=== PATIENT | female | born 1990 | race Caucasian/White ===

== ENCOUNTER 2016-09-08 19:53 | Emergency (ER) | payer OTHER ==
[2016-09-08 20:16] VITALS: BP 112/56; PULSE 96; TEMP 97.8; BMI 29.2
== END 2016-09-08 23:36 | disposition left against medical advice (07) ==
LOC: JERFT 19:53 → JER 19:53
DX: Z53.21 Procedure and treatment not carried out due to patient leaving prior to being seen by health care provider (principal)
CPT/HCPCS: 99281-25

== ENCOUNTER 2016-12-04 22:12 | Emergency (ER) | payer OTHER ==
[2016-12-04 22:29] VITALS: BP 115/69; PULSE 98; TEMP 98.1; BMI 30.2
--- NOTE | 2016-12-04 22:52 | PDOC ---
History of Present Illness - General History Source: Patient Exam Limitations: No Limitations - History of Present Illness Initial Comments: 12/05/16 00:15 The patient is a 26-year-old female with a significant past medical history of HTN, diabetes, lupus, bipolar disorder, depression, anxiety, kidney stones, chronic lower back pain, and presents to the emergency department with pain from her urinary catheter s/p spine surgery. She reports she had lumbar spinal surgery for spinal stenosis 8 days ago, and they inserted a chatman catheter since she had difficulty urinating post-op. She states her chatman catheter is proving uncomfortable for her, and would like to have it removed as she is having less difficulty urinating now. She also reports she taking oxycodone for the pain. She has an appointment with a urologist next week. The patient denies chest pain, shortness of breath, headache and dizziness. The patient denies fever, chills, nausea, vomit, diarrhea and constipation. The patient denies dysuria, frequency, urgency and hematuria. Allergies: NKDA Past Surgical History: gastric bypass, i , tube ligation, two previous spine surgeries (in [place]), cholecystectomy Social History: No toxic habits reported PCP: Dr. No <Magdalena Koo - Last Filed: 12/05/16 00:15> <Benita Merrill - Last Filed: 12/05/16 00:50> - General Chief Complaint: Urinary Catheter Problem Stated Complaint: URINE PROBLEM Time Seen by Provider: 12/04/16 22:32 Past History <Magdalena Koo - Last Filed: 12/05/16 00:15> - Past Medical History Diabetes: Yes HTN: Yes Suicide Attempt (Hx): No - Surgical History Cholecystectomy: Yes GI Surgery: Yes (gastric surgery) - Immunization History Immunization Up to Date: Yes - Psycho/Social/Smoking Cessation Hx Anxiety: No Suicidal Ideation: No Smoking History: Never smoked Have you smoked in the past 12 months: No Number of Cigarettes Smoked Daily: 0 Cigars Per Day: 0 Hx Alcohol Use: No Drug/Substance Use Hx: No Substance Use Type: None <Benita Merrill - Last Filed: 12/05/16 00:50> - Past Medical History Allergies/Adverse Reactions: Allergies Allergy/AdvReac Type Severity Reaction Status Date / Time No Known Allergies Allergy Verified 12/04/16 22:25 Home Medications: Ambulatory Orders Tramadol HCl 50 mg PO DAILY 04/07/16 Lisinopril 10 mg PO DAILY 09/08/16 Metformin HCl [Glucophage] 500 mg PO BID 09/08/16 Cyclobenzaprine HCl [Flexeril 10 mg] 10 mg PO TID PRN 12/04/16 Gabapentin 300 mg PO BID 12/04/16 Oxycodone HCl/Acetaminophen [Oxycodone-Acetaminophen 10-325] 2 each PO Q4HWA PRN 12/04/16 Oxycodone HCl/Acetaminophen [Percocet 5/325 -] 1 tab PO Q6H #12 tablet MDD 4 09/17 Review of Systems - Review of Systems Able to Perform ROS?: Yes Comments:: 12/05/16 00:16 CONSTITUTIONAL: Absent: fever, chills, diaphoresis, generalized weakness, malaise, loss of appetite HEENT: Absent: rhinorrhea, nasal congestion, throat pain, throat swelling, difficulty swallowing, mouth swelling, ear pain, eye pain, visual changes CARDIOVASCULAR: Absent: chest pain, syncope, palpitations, irregular heart rate, lightheadedness , peripheral edema RESPIRATORY: Absent: cough, shortness of breath, dyspnea with exertion, orthopnea, wheezing, stridor, hemoptysis GASTROINTESTINAL: Absent: abdominal pain, abdominal distension, nausea, vomiting, diarrhea, constipation, melena, hematochezia GENITOURINARY: Present: (+) pain from urinary catheter Absent: dysuria, frequency, urgency, hesitancy, hematuria, flank pain, genital pain MUSCULOSKELETAL: Absent: myalgia, arthralgia, joint swelling SKIN: Absent: rash, itching, pallor HEMATOLOGIC/IMMUNOLOGIC: Absent: easy bleeding, easy bruising, lymphadenopathy, frequent infections ENDOCRINE: Absent: unexplained weight gain, unexplained weight loss, heat intolerance, cold intolerance NEUROLOGIC: Absent: headache, focal weakness or paresthesias, dizziness, unsteady gait, seizure, mental status changes, bladder or bowel incontinence PSYCHIATRIC: Absent: anxiety, depression, suicidal or homicidal ideation, hallucinations. <Magdalena Koo - Last Filed: 12/05/16 00:15> *Physical Exam - Vital Signs Last Vital Signs Temp Pulse Resp BP Pulse Ox 98.1 F 98 H 18 115/69 100 12/04/16 22:26 12/04/16 22:26 12/04/16 22:26 12/04/16 22:26 12/04/16 22:26 - Physical Exam Comments: 12/05/16 00:16 GENERAL: Well developed, well nourished. Awake and alert. No acute distress. Afebrile. HEENT: Normocephalic, atraumatic. PERRLA, EOMI. No conjunctival pallor. Sclera are non- icteric. Moist mucous membranes. Oropharynx is clear. NECK: Supple. Full ROM. No JVD. Carotid pulses 2+ and symmetric, without bruits. No thyromegaly. No lymphadenopathy. CARDIOVASCULAR: Regular rate and rhythm. No murmurs, rubs, or gallops. Distal pulses are 2+ and symmetric. PULMONARY: No evidence of respiratory distress. Lungs clear to auscultation bilaterally. No wheezing, rales or rhonchi. ABDOMINAL: (+) Anterior abdominal surgical scar, well healing. Soft. Non-tender. Non- distended. No rebound or guarding. No organomegaly. Normoactive bowel sounds. MUSCULOSKELETAL (+) Two low back paraspinal surgical scars, well healing. Normal range of motion at all joints. No bony deformities or tenderness. No CVA tenderness. GENITOURINARY: (+) Indwelling catheter, clear urine, no dysuria. EXTREMITIES: No cyanosis. No clubbing. No pitting edema. No calf tenderness. SKIN: Warm and dry. Normal capillary refill. No rashes. No jaundice. NEUROLOGICAL: Alert, awake, appropriate. Cranial nerves 2-12 intact. No deficits to light touch and temperature in face, upper extremities and lower extremities. No motor deficits in the in face, upper extremities and lower extremities. Normoreflexic in the upper and lower extremities. Normal speech. Toes are down- going bilaterally. PSYCHIATRIC: Cooperative. Good eye contact. Appropriate mood and affect. <Magdalena Koo - Last Filed: 12/05/16 00:15> - Vital Signs Last Vital Signs Temp Pulse Resp BP Pulse Ox 98.1 F 98 H 18 115/69 100 12/04/16 22:26 12/04/16 22:26 12/04/16 22:26 12/04/16 22:26 12/04/16 22:26 <Benita Merrill - Last Filed: 12/05/16 00:50> ED Treatment Course - Medications Given in the ED: ED Medications Discontinued Medications Generic Name Dose Route Start Last Admin Trade Name Rivera PRN Reason Stop Dose Admin Oxycodone/Acetaminophen 2 combo 12/04/16 23:34 12/04/16 23:37 Percocet 5/325 - PO 12/04/16 23:35 2 combo ONCE ONE Administration <Magdalena Koo - Last Filed: 12/05/16 00:15> Medical Decision Making - Medical Decision Making 12/05/16 00:48 Pt comes with pain post-surgery; she ran out of percocets. All scars are well healing. She also comes to remove her chatman catheter, as it is making her sore. She has no dysuria, and no fever or suprapubic pain ad Urine in the bag appears clear. Pt will follow with urology as scheduled on coming. Pt is stable for discharge. Exam is normal. <Benita Merrill - Last Filed: 12/05/16 00:50> *DC/Admit/Observation/Transfer - Attestations Scribe Attestion: 12/05/16 00:16 Documentation prepared by Magdalena Koo, acting as medical planner for Benita Merrill MD. <Magdalena Koo - Last Filed: 12/05/16 00:15> - Discharge Dispostion Admit: No <Benita Merrill - Last Filed: 12/05/16 00:50> Diagnosis at time of Disposition: Chronic back pain, Chatman catheter status - Discharge Dispostion Disposition: HOME Condition at time of disposition: Stable - Prescriptions Prescriptions: Oxycodone HCl/Acetaminophen [Percocet 5/325 -] 1 tab PO Q6H #12 tablet MDD 4 - Patient Instructions Printed Discharge Instructions: Low Back Pain
[2016-12-04] MEDS ORDERED: OXYCODONE/APAP 5/325MG COMBO TABLET PO ONE (23:34)
[2016-12-04] MEDS ORDERED: OXYCODONE/APAP 5/325MG COMBO TABLET ONE (23:39)
== END 2016-12-04 23:55 | disposition home or self-care (01) ==
LOC: JER 22:12
DX: T83.84XA Pain due to genitourinary prosthetic devices, implants and grafts, initial encounter (principal); Y84.6 Urinary catheterization as the cause of abnormal reaction of the patient, or of later complication, without mention of misadventure at the time of the procedure; Y92.038 Other place in apartment as the place of occurrence of the external cause; Z98.890 Other specified postprocedural states; E11.9 Type 2 diabetes mellitus without complications; F31.9 Bipolar disorder, unspecified
CPT/HCPCS: 99282-25

== ENCOUNTER 2017-02-24 18:34 | Emergency (ER) | payer OTHER ==
[2017-02-24 18:52] VITALS: BP 134/91; PULSE 84; TEMP 99; BMI 30.2
[2017-02-24 19:38] LABS: MCH 27.6 pg (25.7-33.7); MCHC 32.2 g/dl (32.0-36.0); MEAN CELL VOLUME 85.9 fl (80-96); MEAN PLT VOLUME 7.4 fl (7.5-11.1); PLATELET COUNT 360 K/MM3 (134-434); RDW 16.3 % (11.6-15.6); WHITE BLOOD COUNT 6.8 K/mm3 (4.0-10.0)
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
--- NOTE | 2017-02-24 19:47 | PDOC ---
Attending Attestation - HPI HPI: 02/24/17 19:51 26 yo female with hx of diabetes and hypertension who presents to the emergency department s/p witnessed seizure. Presents with cousin who provided additional history who witnessed a general tonic clonic seizure lasting approximately 1 minute followed by a period of confusion. No prior hx of seizures, drug use. No recent headaches No fever, chills, nausea, vomiting. <Ida Hermosillo - Last Filed: 02/24/17 19:50> - Resident Resident Name: Andrew Carpenter - ED Attending Attestation I have performed the following: I have examined & evaluated the patient, The case was reviewed & discussed with the resident, I agree w/resident's findings & plan, Exceptions are as noted - HPI HPI: 02/25/17 02:03 26 yo F with h/o DM HTN here with new onset seizure. lasted 1 min ,witnessed by cousin. no h/o trauma no /c no other complaints. had postictal period. now at baseline. - Physicial Exam PE: 02/25/17 02:02 awake alert lungs clear heart rrr no mrg abd soft nt nd. ext wwp nuero alert oriented x 3. 5/5 all four ext. CN intact. - Medical Decision Making 02/24/17 19:44 26 yo F with h/o DM HTN here with c/o seizure at home, witnessed by cousin. pt denies trauma no prater no n/v no f/c no drugs. has been compliant with medication. differential: tox, mass, hypoglycemia, electrolyte imbalance, plan ct head. labs cxr ua [facility] drug screen. while in ED pt had witnessed seizure lasting 45 seconds, given ativan 2mg. generalized shakingl. no incontinence. labs and ct pending. <Kika Castillo - Last Filed: 02/25/17 02:04>
[2017-02-24] MEDS ORDERED: SODIUM CHLORIDE 1,000 ML IV STA (19:53)
[2017-02-24 20:12] LABS: ANION GAP 6 (8-16); BILIRUBIN,TOTAL 0.3 mg/dL (0.2-1.0); CALCIUM 8.7 mg/dL (8.5-10.1); CO2 28 mmol/L (21-32); CREATININE 0.7 mg/dL (0.55-1.02); GLUCOSE,RANDOM 74 mg/dL (74-106); SGOT/AST 33 U/L (15-37); SGPT/ALT 44 U/L (12-78); TOT PROT 7.5 g/dl (6.4-8.2)
[2017-02-24 20:14] LABS: ALK PHOS 72 U/L (45-117); CPK 152 IU/L (26-192); TROPONIN I < 0.02 ng/ml (0.00-0.05)
--- NOTE | 2017-02-25 12:26 | EKG ---
Test Reason : Blood Pressure : / mmHG Vent. Rate : 099 BPM Atrial Rate : 099 BPM P-R Int : 130 ms QRS Dur : 084 ms QT Int : 370 ms P-R-T Axes : 037 052 031 degrees QTc Int : 474 ms NORMAL SINUS RHYTHM NORMAL ECG NO PREVIOUS ECGS AVAILABLE Confirmed by MD ROSE, BRIT ([id number]) on 02/25/2017 12:26:04 PM Referred By: Confirmed By:BRIT ROSE MD
== END 2017-02-25 02:48 | disposition home or self-care (01) ==
LOC: JER 18:34
PROC: 0T9B70Z Drainage of Bladder with Drainage Device, Via Natural or Artificial Opening (ICD-10-PCS; principal; 2017-02-24)
PROC: 3E033NZ Introduction of Analgesics, Hypnotics, Sedatives into Peripheral Vein, Percutaneous Approach (ICD-10-PCS; 2017-02-24)
PROC: 3E0337Z Introduction of Electrolytic and Water Balance Substance into Peripheral Vein, Percutaneous Approach (ICD-10-PCS; 2017-02-24)
DX: R33.9 Retention of urine, unspecified (principal); E11.9 Type 2 diabetes mellitus without complications; I10 Essential (primary) hypertension
CPT/HCPCS: 36415; 70450-TC; 71010-TC; 72131-TC; 74176-TC; 80053; 82553; 83605; 84484; 84703; 85027; 93005; 93010; 99284-25

== ENCOUNTER 2017-02-26 02:00 | Emergency (ER) | payer OTHER ==
--- NOTE | 2017-02-26 02:46 | PDOC ---
Medical Decision Making - Medical Decision Making 02/26/17 02:46 Pt seen by the Advanced Practice Provider under my direct supervision Ancillary studies reviewed I agree with plan as outlined by the Advanced Practice Provider FITZ Hill *DC/Admit/Observation/Transfer Diagnosis at time of Disposition: UTI (urinary tract infection) - Discharge Dispostion Disposition: HOME Condition at time of disposition: Stable - Prescriptions Prescriptions: Nitrofurantoin Monohyd/M-Cryst [Macrobid -] 100 mg PO BID #14 capsule - Referrals Referrals: López Fortune MD [Staff Physician] - Akhil Higginbotham MD [Primary Care Provider] - - Patient Instructions Printed Discharge Instructions: DI for Urinary Tract Infection (UTI) Additional Instructions: Increase fluids Rx: Macrobid 100mg take 1 tablet by mouth twice a day Follow up with the urologist to removew the chatman catheter Return to the ER for severe/persistent/worsening symptoms
[2017-02-26 02:49] LABS: URINE APPEARANCE CLOUDY; URINE BILIRUBIN NEGATIVE (NEGATIVE); URINE BLOOD 3+ (NEGATIVE); URINE COLOR DKYELLOW; URINE GLUCOSE (UA) NEGATIVE (NEGATIVE); URINE KETONE NEGATIVE (NEGATIVE); URINE NITRITE NEGATIVE (NEGATIVE)
--- NOTE | 2017-02-26 02:57 | PDOC ---
History of Present Illness - General Stated Complaint: VELAZQUEZ PROBLEM Time Seen by Provider: 02/26/17 02:18 History Source: Patient Exam Limitations: No Limitations - History of Present Illness Travel History: No Initial Comments: 02/26/17 02:52 26-year-old female with a history of epilepsy presents to the emergency department complaining of hematuria in her leg Velazquez bag. Patient was seen in the emergency department yesterday for urinary retention and was discharged home with a leg bag. Patient denies any urinary sensations or symptoms but did notice hematuria without flank pains, fever/chills, nausea/vomiting, abdominal discomfort. LMP 02/03/2017 Timing/Duration: reports: intermittent Abdominal Pain Onset Location: reports: suprapubic Past History - Past Medical History Allergies/Adverse Reactions: Allergies Allergy/AdvReac Type Severity Reaction Status Date / Time No Known Allergies Allergy Verified 02/24/17 18:51 Home Medications: Ambulatory Orders Tramadol HCl 50 mg PO DAILY 04/07/16 Cyclobenzaprine HCl [Flexeril 10 mg] 10 mg PO TID PRN 12/04/16 Bupropion HCl [Wellbutrin Xl] 300 mg PO DAILY 02/24/17 Esomeprazole Magnesium [Nexium 24Hr] 40 mg PO DAILY 02/24/17 Fluoxetine HCl [Prozac] 50 mg PO DAILY 02/24/17 Folic Acid 1 mg PO DAILY 02/24/17 Nitrofurantoin Monohyd/M-Cryst [Macrobid -] 100 mg PO BID #14 capsule 02/26/17 Diabetes: Yes HTN: Yes Suicide Attempt (Hx): No Seizures: Yes - Surgical History Abdominal Surgery: Yes Cholecystectomy: Yes GI Surgery: Yes (gastric surgery) - Immunization History Immunization Up to Date: Yes - Psycho/Social/Smoking Cessation Hx Anxiety: No Suicidal Ideation: No Smoking History: Never smoked Have you smoked in the past 12 months: No Number of Cigarettes Smoked Daily: 0 Cigars Per Day: 0 Hx Alcohol Use: No Drug/Substance Use Hx: No Substance Use Type: None Review of Systems - Review of Systems Able to Perform ROS?: Yes Comments:: 02/26/17 02:52 CONSTITUTIONAL: Absent: fever, chills, diaphoresis, generalized weakness, malaise, loss of appetite CARDIOVASCULAR: Absent: chest pain, loss of consciousness, palpitations, irregular heart rate, peripheral edema RESPIRATORY: Absent: cough, shortness of breath, dyspnea with exertion, orthopnea, wheezing, stridor, hemoptysis GASTROINTESTINAL: Absent: abdominal pain, abdominal distension, nausea, vomiting, diarrhea, constipation, melena, hematochezia GENITOURINARY: +hematuria/velazquez Absent: dysuria, frequency, urgency, hesitancy, flank pain, genital pain SKIN: Absent: rash, itching, pallor Is the patient limited Greenlandic proficient: No *Physical Exam - Physical Exam Comments: 02/26/17 02:52 GENERAL: Well developed, well nourished. Awake and alert. No acute distress. HEENT: Normocephalic, atraumatic. PERRLA, EOMI. No conjunctival pallor. Sclera are non- icteric. Moist mucous membranes. Oropharynx is clear. NECK: Supple. Full ROM. No JVD. Carotid pulses 2+ and symmetric, without bruits. No thyromegaly. No lymphadenopathy. CARDIOVASCULAR: Regular rate and rhythm. No murmurs, rubs, or gallops. Distal pulses are 2+ and symmetric. PULMONARY: No evidence of respiratory distress. Lungs clear to auscultation bilaterally. No wheezing, rales or rhonchi. ABDOMINAL: Soft. Non-tender. Non-distended. No rebound or guarding. No organomegaly. Normoactive bowel sounds. MUSCULOSKELETAL Normal range of motion at all joints. No bony deformities or tenderness. No CVA tenderness. EXTREMITIES: No cyanosis. No clubbing. No edema. No calf tenderness. SKIN: Warm and dry. Normal capillary refill. No rashes. No jaundice. NEUROLOGICAL: Alert, awake, appropriate. Cranial nerves 2-12 intact. No deficits to light touch and temperature in face, upper extremities and lower extremities. No motor deficits in the in face, upper extremities and lower extremities. Normoreflexic in the upper and lower extremities. Normal speech. Toes are down- going bilaterally. Gait is normal without ataxia. PSYCHIATRIC: Cooperative. Good eye contact. Appropriate mood and affect. 02/26/17 02:54 ED Treatment Course - ADDITIONAL ORDERS Additional order review: Laboratory Results 02/26/17 02:30 Urine HCG, Qual Negative *DC/Admit/Observation/Transfer Diagnosis at time of Disposition: Urinary tract infection Qualifiers: Urinary tract infection type: acute cystitis Hematuria presence: with hematuria Qualified Code(s): N30.01 - Acute cystitis with hematuria - Discharge Dispostion Disposition: HOME Condition at time of disposition: Stable Admit: No - Prescriptions Prescriptions: Nitrofurantoin Monohyd/M-Cryst [Macrobid -] 100 mg PO BID #14 capsule - Referrals Referrals: Akhil Higginbotham MD [Primary Care Provider] - López Fortune MD [Staff Physician] - - Patient Instructions Printed Discharge Instructions: DI for Urinary Tract Infection (UTI) Additional Instructions: Increase fluids Rx: Macrobid 100mg take 1 tablet by mouth twice a day Follow up with the urologist to removew the velazquez catheter Return to the ER for severe/persistent/worsening symptoms
[2017-02-26 03:04] LABS: URINE LEUK ESTERASE 1+ (NEGATIVE); URINE PROTEIN 2+ (NEGATIVE)
[2017-02-26 03:08] LABS: CALCIUM OXALATE CRYSTALS RARE /hpf (NONE SEEN); URINE BACTERIA RARE /hpf (NONE SEEN); URINE HYALINE CAST 3 /lpf; URINE MUCUS MANY; URINE RBC 1207 /hpf (0-3); URINE WBC 38 /hpf (3-5)
[2017-02-26 03:11] VITALS: BP 104/67; PULSE 62; TEMP 97.4; BMI 30.2
[2017-02-26] MEDS ORDERED: NITROFURANTOIN MACROCRYSTAL 50 MG CAPSULE (FP) PO SCH (03:15)
[2017-02-26] MEDS ORDERED: NITROFURANTOIN MACROCRYSTAL 50 MG CAPSULE (FP) ONE ×2 (03:22→03:23)
== END 2017-02-26 03:30 | disposition home or self-care (01) ==
LOC: JER 02:00
DX: N30.01 Acute cystitis with hematuria (principal)
CPT/HCPCS: 81003; 81015; 84703; 87086; 87186; 99282-25

== ENCOUNTER 2017-04-11 22:13 | Emergency (ER) | payer OTHER ==
[2017-04-11 22:39] VITALS: BP 131/63; PULSE 77; TEMP 98; BMI 31.6
--- NOTE | 2017-04-11 23:08 | PDOC ---
Attending Attestation - Resident Resident Name: Timo Starkey - ED Attending Attestation I have performed the following: I have examined & evaluated the patient, The case was reviewed & discussed with the resident, I agree w/resident's findings & plan, Exceptions are as noted - HPI HPI: 04/12/17 01:36 26 yo female with right sided cva tenderness - Physicial Exam PE: 04/12/17 01:36 wnwd 26 yo female with right sided cva tenderness HEENT wnl lungs cta b/l cvs [id number] abd soft no rebound no guarding right flank pain extremities wnl neuro ambulatory,no gross focal deficits - Medical Decision Making 04/12/17 01:38 IMP diff included uti,kidney stones
[2017-04-11] MEDS ORDERED: KETOROLAC TROMETHAMINE 30 MG/1 ML VIAL IVPUSH ONE (23:27)
--- NOTE | 2017-04-11 23:27 | PDOC ---
History of Present Illness - General Chief Complaint: Pain Stated Complaint: PAIN, ACUTE Time Seen by Provider: 04/11/17 22:59 - History of Present Illness Initial Comments: 04/11/17 23:16 The patient is a 26 year old female with a history of seizures and urinary retention who presents for evaluation of lower right back pain. The patient reports sudden onset of severe pain earlier today prompting her presentation to the ED today. She denies any pain or burning on urination and states that she has experienced this pain in the past. She denies fevers, chills, SOB, chest pain, or abdominal pain. Past History - Past Medical History Allergies/Adverse Reactions: Allergies Allergy/AdvReac Type Severity Reaction Status Date / Time No Known Allergies Allergy Verified 04/11/17 22:33 Home Medications: Ambulatory Orders Tramadol HCl 50 mg PO DAILY 04/07/16 Cyclobenzaprine HCl [Flexeril 10 mg] 10 mg PO TID PRN 12/04/16 Bupropion HCl [Wellbutrin Xl] 300 mg PO DAILY 02/24/17 Esomeprazole Magnesium [Nexium 24Hr] 40 mg PO DAILY 02/24/17 Fluoxetine HCl [Prozac] 50 mg PO DAILY 02/24/17 Folic Acid 1 mg PO DAILY 02/24/17 Nitrofurantoin Monohyd/M-Cryst [Macrobid -] 100 mg PO BID #14 capsule 02/26/17 Tamsulosin HCl [Flomax] 0.4 mg PO DAILY #7 cap.er.24h 04/12/17 Diabetes: Yes HTN: Yes Seizures: Yes Other medical history: lupus - Surgical History Abdominal Surgery: Yes Cholecystectomy: Yes GI Surgery: Yes (gastric surgery) - Immunization History Immunization Up to Date: Yes - Suicide/Smoking/Psychosocial Hx Smoking History: Never smoked Have you smoked in the past 12 months: No Number of Cigarettes Smoked Daily: 0 Cigars Per Day: 0 Information on smoking cessation initiated: No Hx Alcohol Use: No Drug/Substance Use Hx: No Substance Use Type: None Review of Systems - Review of Systems Comments:: 04/11/17 23:17 Constitutional: No fevers, chills, fatigue, malaise HEENT: No Rhinorrhea, nasal congestion, Cardiovascular: No chest pain, syncope, palpitations, lightheadedness Respiratory: No Cough, SOB, Gastrointestinal: No Abdominal pain, Nausea, Vomiting, Constipation, Diarrhea, Genitourinary: Right flank pain. No Dysuria, Frequency, Urgency, Hesitancy, Hematuria, Musculoskeletal: No Myalgia, arthralgia Skin: No rashes, bruising, pallor Neurologic: No Headache, Dizziness, Numbness, Weakness, or Tingling *Physical Exam - Vital Signs Last Vital Signs Temp Pulse Resp BP Pulse Ox 98.0 F 77 18 131/63 100 04/11/17 22:29 04/11/17 22:29 04/11/17 22:29 04/11/17 22:29 04/11/17 22:29 - Physical Exam Comments: 04/11/17 23:18 General Appearance: Nourished. No Apparent Distress HEENT: EOMI, JJ. No Pharyngeal Erythema, Tonsillar Exudate, Tonsillar Erythema Neck: No Cervical Lymphadenopathy Respiratory/Chest: Lungs Clear, Normal Breath Sounds. No Crackles, Rales, Rhonchi, Wheezing Cardiovascular: Regular Rhythm, Regular Rate. No Murmur, Gallops, Rubs Gastrointestinal/Abdominal: Normal Bowel Sounds, Soft. No Guarding, Rebound, Tenderness Musculoskeletal: Right sided CVA tenderness. No Left CVA tenderness. Extremity: Normal Capillary Refill Integumentary: Normal Color, Dry, Warm Neurologic: Fully Oriented, Alert, Normal Mood/Affect, Normal Response, ED Treatment Course - LABORATORY CBC & Chemistry Diagram: 04/11/17 23:45 04/11/17 23:45 Medical Decision Making - Medical Decision Making 04/11/17 23:20 The patient is a 26 year old female with a history of seizures and urinary retention who presents for evaluation of lower left back pain. Differential includes but is not limit to: Nephrolethiasis, UTI, Pylonephritis, metabolic derangement, musculoskeletal. Patient does have a history of kidney stones and given the sudden onset of her symptoms as well as her physical exam with cva tenderness on the right, she likely has nephrolethiasis. We will send a cbc, cmp, ua and urine preg to evaluate. We will continue to monitor and reassess. *DC/Admit/Observation/Transfer Diagnosis at time of Disposition: Kidney calculi - Discharge Dispostion Disposition: HOME Condition at time of disposition: Stable - Prescriptions Prescriptions: Tamsulosin HCl [Flomax] 0.4 mg PO DAILY #7 cap.er.24h - Referrals Referrals: Akhil Higginbotham MD [Primary Care Provider] - Lee Prakash MD [Staff Physician] - - Patient Instructions Printed Discharge Instructions: DI for Kidney Stones Additional Instructions: Please follow up with your primary care provider and urologist within 1 week. A referral has been provided for you. Take flomax as prescribed If you have chest pain, shortness of breath, or any new/worsening symptoms please come back to the hospital immediately. Print Language: JAPANESE
[2017-04-11] MEDS ORDERED: KETOROLAC TROMETHAMINE 60 MG/2 ML VIAL ONE (23:42)
--- NOTE | 2017-04-11 23:56 | PDOC ---
*Physical Exam - Vital Signs Last Vital Signs Temp Pulse Resp BP Pulse Ox 98.0 F 77 18 131/63 100 04/11/17 22:29 04/11/17 22:29 04/11/17 22:29 04/11/17 22:29 04/11/17 22:29 ED Treatment Course - LABORATORY CBC & Chemistry Diagram: 04/11/17 23:45 04/11/17 23:45 Medical Decision Making - Medical Decision Making 04/11/17 23:54 26 y.o. F hx of nephrolithiasis, urinary retention, and seizures presenting with right lower back pain. Pending labs, UA. Depending on UA, will determine whether she needs CT. Care taken over from Dr. Starkey 04/12/17 00:53 UA- 2+ blood, 14 WBC 04/12/17 03:35 Renal u/s no evidence of hydronephrosis. Patient stable for d/c with follow up with Urology. *DC/Admit/Observation/Transfer Diagnosis at time of Disposition: Kidney calculi - Discharge Dispostion Disposition: HOME Condition at time of disposition: Stable - Referrals Referrals: Akhil Higginbotham MD [Primary Care Provider] - Lee Prakash MD [Staff Physician] - - Patient Instructions Printed Discharge Instructions: DI for Kidney Stones Additional Instructions: Please follow up with your primary care provider and urologist within 1 week. A referral has been provided for you. Take flomax as prescribed If you have chest pain, shortness of breath, or any new/worsening symptoms please come back to the hospital immediately.
[2017-04-11 23:58] LABS: URINE APPEARANCE SLCLOUDY; URINE BILIRUBIN NEGATIVE (NEGATIVE); URINE BLOOD 2+ (NEGATIVE); URINE COLOR YELLOW; URINE GLUCOSE (UA) NEGATIVE (NEGATIVE); URINE KETONE TRACE (NEGATIVE); URINE NITRITE NEGATIVE (NEGATIVE); URINE UROBILINOGEN NEGATIVE mg/dL (0.2-1.0)
[2017-04-12 00:08] LABS: URINE PROTEIN 1+ (NEGATIVE)
[2017-04-12 00:17] LABS: URINE MUCUS MANY; URINE RBC 264 /hpf (0-3); URINE WBC 14 /hpf (3-5)
[2017-04-12 00:22] LABS: BASOPHIL 0.4 % (0-2.0); EOSINOPHIL 0.9 % (0-4.5); MCH 27.9 pg (25.7-33.7); MCHC 32.5 g/dl (32.0-36.0); MEAN CELL VOLUME 85.9 fl (80-96); MEAN PLT VOLUME 7.4 fl (7.5-11.1); NEUTROPHILS 45.9 % (42.8-82.8); PLATELET COUNT 363 K/MM3 (134-434); RDW 15.3 % (11.6-15.6)
[2017-04-12 00:46] LABS: ALBUMIN 3.8 g/dl (3.4-5.0); ANION GAP 8 (8-16); BILIRUBIN,TOTAL 0.2 mg/dL (0.2-1.0); CALCIUM 9.1 mg/dL (8.5-10.1); CO2 27 mmol/L (21-32); CREATININE 0.5 mg/dL (0.55-1.02); GLUCOSE,RANDOM 89 mg/dL (74-106); SGOT/AST 17 U/L (15-37); SGPT/ALT 25 U/L (12-78); TOT PROT 7.6 g/dl (6.4-8.2)
[2017-04-12 00:47] LABS: ALK PHOS 71 U/L (45-117)
[2017-04-12] MEDS ORDERED: SODIUM CHLORIDE 1,000 ML IV STA (01:31)
[2017-04-12] MEDS ORDERED: morphine CARPU-JECT 2 MG/1 ML DISP.SYRIN IVPUSH ONE (01:31)
[2017-04-12] MEDS ORDERED: morphine CARPU-JECT 10 MG/1 ML DISP.SYRIN ONE (02:18)
[2017-04-12 09:02] LABS: URINE LEUK ESTERASE Negative (NEGATIVE)
== END 2017-04-12 04:20 | disposition home or self-care (01) ==
LOC: JER 22:13
PROC: 3E0333Z Introduction of Anti-inflammatory into Peripheral Vein, Percutaneous Approach (ICD-10-PCS; principal; 2017-04-11)
PROC: 3E033NZ Introduction of Analgesics, Hypnotics, Sedatives into Peripheral Vein, Percutaneous Approach (ICD-10-PCS; 2017-04-11)
PROC: 3E0337Z Introduction of Electrolytic and Water Balance Substance into Peripheral Vein, Percutaneous Approach (ICD-10-PCS; 2017-04-11)
DX: N20.0 Calculus of kidney (principal); Z98.84 Bariatric surgery status; I10 Essential (primary) hypertension; L93.0 Discoid lupus erythematosus
CPT/HCPCS: 36415; 76775-TC; 80053; 81003; 81015; 84703; 85025; 99283-25

== ENCOUNTER 2017-06-29 01:26 | Emergency (ER) | payer OTHER ==
[2017-06-29 01:42] VITALS: BP 132/84; PULSE 77; TEMP 98.2; BMI 31.8
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
== END 2017-06-29 04:46 | disposition home or self-care (01) ==
LOC: JER 01:26
DX: M54.42 Lumbago with sciatica, left side (principal); G89.29 Other chronic pain; V89.2XXS Person injured in unspecified motor-vehicle accident, traffic, sequela
CPT/HCPCS: 99282-25

== ENCOUNTER 2017-08-05 00:49 | Inpatient (IN) | payer OTHER ==
[2017-08-05] MEDS ORDERED: HYDROmorphone HCL CARPU-JECT 1 MG/1 ML DISP.SYRIN IVPB ONE ×2 (01:39→03:01)
[2017-08-05] MEDS ORDERED: HYDROmorphone HCL CARPU-JECT 2 MG/1 ML DISP.SYRIN ONE ×2 (02:16→03:08)
[2017-08-05 02:33] LABS: BASO % 0.6 % (0-2.0); EOS % 0.9 % (0-4.5); HEMATOCRIT 31.1 % (32.4-45.2); LYMPH % 31.8 % (8-40); MCH 25.4 pg (25.7-33.7); MCHC 32.2 g/dl (32.0-36.0); MEAN CELL VOLUME 78.8 fl (80-96); MEAN PLT VOLUME 7.3 fl (7.5-11.1); MONO % 7.3 % (3.8-10.2); NEUT % 59.4 % (42.8-82.8); PLATELET COUNT 457 K/MM3 (134-434); RBC 3.94 M/mm3 (3.60-5.2); RDW 15.9 % (11.6-15.6); WHITE BLOOD COUNT 9.7 K/mm3 (4.0-10.0)
[2017-08-05 03:11] LABS: ALBUMIN 3.6 g/dl (3.4-5.0); ALK PHOS 74 U/L (45-117); ANION GAP 7 (8-16); BILIRUBIN,TOTAL 0.2 mg/dL (0.2-1.0); BLOOD UREA NITROGEN 18 mg/dL (7-18); CALCIUM 8.7 mg/dL (8.5-10.1); CHLORIDE 103 mmol/L (98-107); CO2 28 mmol/L (21-32); CREATININE 0.6 mg/dL (0.55-1.02); GLUCOSE,RANDOM 97 mg/dL (74-106); POTASSIUM 4.3 mmol/L (3.5-5.1); SGOT/AST 19 U/L (15-37); SGPT/ALT 31 U/L (12-78); SODIUM 138 mmol/L (136-145); TOT PROT 7.7 g/dl (6.4-8.2)
--- NOTE | 2017-08-05 05:06 | PDOC ---
History of Present Illness - History of Present Illness Initial Comments: 08/05/17 05:23 The patient is a 27 year old female, with a significant past medical history of herniated disks, who presents to the emergency department with, progressively worsening lower back pain and left leg numbness for approx. two days. The patient reports the lower back pain is made worse with movement. The patient reports she has had intermittent left leg numbness in the past. However, the left leg numbness has now been constant for the past two days. The patient reports one episode of stool incontinence yesterday. She denies recent fevers, chills, headache or dizziness. She denies recent nausea, vomit, diarrhea or constipation. She denies recent dysuria, frequency, urgency or hematuria. She denies recent chest pain or shortness of breath. Allergies: NKA Past surgical history: 3 lumbar surgeries and fusions. Social history: Nonsmoker. Denies EtOH use and recreational drug use. <Kemal German - Last Filed: 08/05/17 05:34> <Fuentes Trivedi - Last Filed: 08/05/17 10:27> - General History Source: Patient Exam Limitations: No Limitations <Devan Aquino - Last Filed: 08/11/17 18:45> - General Chief Complaint: Back Pain Stated Complaint: BACK PAIN Time Seen by Provider: 08/05/17 01:19 Past History <Kemal German - Last Filed: 08/05/17 05:34> <Fuentes Trivedi - Last Filed: 08/05/17 10:27> - Past Medical History COPD: No Diabetes: Yes HTN: Yes Seizures: Yes - Surgical History Abdominal Surgery: Yes Cholecystectomy: Yes GI Surgery: Yes (gastric surgery) - Immunization History Immunization Up to Date: Yes - Suicide/Smoking/Psychosocial Hx Smoking History: Never smoked Have you smoked in the past 12 months: No Number of Cigarettes Smoked Daily: 0 Cigars Per Day: 0 Information on smoking cessation initiated: No Hx Alcohol Use: No Drug/Substance Use Hx: No Substance Use Type: None <Devan Aquino - Last Filed: 08/11/17 18:45> - Past Medical History Allergies/Adverse Reactions: Allergies Allergy/AdvReac Type Severity Reaction Status Date / Time No Known Allergies Allergy Verified 08/05/17 01:12 Home Medications: Ambulatory Orders Tramadol HCl 50 mg PO DAILY 04/07/16 Esomeprazole Magnesium [Nexium 24Hr] 40 mg PO DAILY 02/24/17 Fluoxetine HCl [Prozac] 50 mg PO DAILY 02/24/17 Folic Acid 1 mg PO DAILY 02/24/17 Oxycodone HCl/Acetaminophen [Percocet 5-325 mg Tablet] 1 - 2 tab PO Q6H #20 tablet MDD 4 06/29/17 Aripiprazole [Abilify] 10 mg PO HS 08/05/17 Gabapentin 300 mg PO DAILY 08/05/17 Zolpidem Tartrate [Ambien] 10 mg PO HS 08/05/17 Hydrocodone/Acetaminophen [Hydrocodone-Acetamin 5-325 mg] 1 each PO DAILY #18 tablet MDD 20mg 08/07/17 Oxycodone HCl/Acetaminophen [Percocet 5-325 mg Tablet] 1 - 2 tab PO Q6H #18 tab MDD 4 08/08/17 Review of Systems - Review of Systems Comments:: 08/05/17 05:24 GENERAL/CONSTITUTIONAL: No fever or chills. No weakness. HEAD, EYES, EARS, NOSE AND THROAT: No change in vision. No ear pain or discharge. No sore throat. CARDIOVASCULAR: No chest pain or shortness of breath. RESPIRATORY: No cough, wheezing, or hemoptysis. GASTROINTESTINAL: No nausea, vomiting, diarrhea or constipation. GENITOURINARY: No dysuria, frequency, or change in urination. MUSCULOSKELETAL: +Lower back pain. No joint or muscle swelling or pain. SKIN: No rash NEUROLOGIC: +Left leg numbness. No headache, vertigo, loss of consciousness. ENDOCRINE: No increased thirst. No abnormal weight change. HEMATOLOGIC/LYMPHATIC: No anemia, easy bleeding, or history of blood clots. ALLERGIC/IMMUNOLOGIC: No hives or skin allergy. <Kemal German - Last Filed: 08/05/17 05:34> *Physical Exam - Vital Signs Last Vital Signs Temp Pulse Resp BP Pulse Ox 98.5 F 87 20 126/76 99 08/05/17 00:55 08/05/17 00:55 08/05/17 00:55 08/05/17 00:55 08/05/17 00:55 - Physical Exam Comments: 08/05/17 05:25 GENERAL: Awake, alert, and fully oriented, in no acute distress HEAD: No signs of trauma EYES: PERRLA, EOMI, sclera anicteric, conjunctiva clear ENT: Auricles normal inspection, hearing grossly normal, nares patent, oropharynx clear without exudates. Moist mucosa NECK: Normal ROM, supple, no lymphadenopathy, JVD, or masses LUNGS: Breath sounds equal, clear to auscultation bilaterally. No wheezes, and no crackles HEART: Regular rate and rhythm, normal S1 and S2, no murmurs, rubs or gallops ABDOMEN: Soft, nontender, normoactive bowel sounds. No guarding, no rebound. No masses BACK: +Surgical scar lumbar spine. +Tenderness to L5-S1. EXTREMITIES: +Straight leg raise at 30 degrees left side. No edema. No clubbing or cyanosis. No cords, erythema, or tenderness NEUROLOGICAL: +Subjective decrease sensation diffusely left lower extremity compared to right. ?Saddle anesthesia left side but normal rectal tone. Cranial nerves II through XII grossly intact. Normal speech, normal gait SKIN: Warm, Dry, normal turgor, no rashes or lesions noted. <Kemal German - Last Filed: 08/05/17 05:34> - Vital Signs Last Vital Signs Temp Pulse Resp BP Pulse Ox 98.1 F 73 20 106/59 98 08/05/17 07:08 08/05/17 07:08 08/05/17 00:55 08/05/17 07:08 08/05/17 07:08 <Fuentes Trivedi - Last Filed: 08/05/17 10:27> - Vital Signs Last Vital Signs Temp Pulse Resp BP Pulse Ox 98.5 F 87 20 126/76 99 08/05/17 00:55 08/05/17 00:55 08/05/17 00:55 08/05/17 00:55 08/05/17 00:55 <Devan Aqunio - Last Filed: 08/11/17 18:45> ED Treatment Course - LABORATORY CBC & Chemistry Diagram: 08/05/17 02:10 08/05/17 02:10 - ADDITIONAL ORDERS Additional order review: Laboratory Results 08/05/17 08/05/17 02:10 02:10 Sodium 138 Potassium 4.3 Chloride 103 Carbon Dioxide 28 Anion Gap 7 L BUN 18 Creatinine 0.6 Creat Clearance w eGFR > 60 Random Glucose 97 Calcium 8.7 Total Bilirubin 0.2 AST 19 ALT 31 Alkaline Phosphatase 74 Total Protein 7.7 Albumin 3.6 Serum , Qual Negative 08/05/17 02:10 RBC 3.94 MCV 78.8 L MCHC 32.2 RDW 15.9 H MPV 7.3 L Neutrophils % 59.4 D Lymphocytes % 31.8 D Monocytes % 7.3 Eosinophils % 0.9 Basophils % 0.6 - RADIOLOGY Radiograph Interpretation: 08/05/17 05:11 EXAM: LUMBAR SPINE CT W/O CONTRAST HISTORY: Pain COMPARISON: None. FINDINGS: CT lumbar spine demonstrates intervertebral disc spacing devices at L3 -L4 and L4-L5. There are spinal fixation rods with pedicle screws at L3-L4 Evaluation of the spinal canal is limited due to beam hardening artifact from metallic fixation devices. However, there is no visualized central spinal canal stenosis IMPRESSION: Spinal fixation rods and intravertebral disc spacing devices in place Reported by José Miguel Gilbert MD - Medications Given in the ED: ED Medications Discontinued Medications Generic Name Dose Route Start Last Admin Trade Name Aleksandarq PRN Reason Stop Dose Admin Hydromorphone HCl 0.5 mg 08/05/17 01:39 08/05/17 02:29 Dilaudid Injection - IVPB 08/05/17 01:40 0.5 mg ONCE ONE Administration Hydromorphone HCl 0.5 mg 08/05/17 03:01 08/05/17 03:14 Dilaudid Injection - IVPB 08/05/17 03:02 0.5 mg ONCE ONE Administration <Kemal German - Last Filed: 08/05/17 05:34> - LABORATORY CBC & Chemistry Diagram: 08/05/17 02:10 08/05/17 02:10 - ADDITIONAL ORDERS Additional order review: Laboratory Results 08/05/17 08/05/17 08/05/17 08:10 02:10 02:10 Sodium 138 Potassium 4.3 Chloride 103 Carbon Dioxide 28 Anion Gap 7 L BUN 18 Creatinine 0.6 Creat Clearance w eGFR > 60 Random Glucose 97 Calcium 8.7 Total Bilirubin 0.2 AST 19 ALT 31 Alkaline Phosphatase 74 Total Protein 7.7 Albumin 3.6 Serum , Qual Negative Urine Color Yellow Urine Appearance Clear Urine pH 5.0 Ur Specific [place] 1.027 Urine Protein Negative Urine Glucose (UA) Negative Urine Ketones Negative Urine Blood Negative Urine Nitrite Negative Urine Bilirubin Negative Urine Urobilinogen 2.0 H Ur Leukocyte Esterase Negative 08/05/17 02:10 RBC 3.94 MCV 78.8 L MCHC 32.2 RDW 15.9 H MPV 7.3 L Neutrophils % 59.4 D Lymphocytes % 31.8 D Monocytes % 7.3 Eosinophils % 0.9 Basophils % 0.6 - Medications Given in the ED: ED Medications Discontinued Medications Generic Name Dose Route Start Last Admin Trade Name Rivera PRN Reason Stop Dose Admin Hydromorphone HCl 0.5 mg 08/05/17 01:39 08/05/17 02:29 Dilaudid Injection - IVPB 08/05/17 01:40 0.5 mg ONCE ONE Administration Hydromorphone HCl 0.5 mg 08/05/17 03:01 08/05/17 03:14 Dilaudid Injection - IVPB 08/05/17 03:02 0.5 mg ONCE ONE Administration Morphine Sulfate 4 mg 08/05/17 05:24 08/05/17 05:45 Morphine Injection - IVPUSH 08/05/17 05:25 4 mg ONCE ONE Administration Morphine Sulfate 4 mg 08/05/17 09:26 08/05/17 09:35 Morphine Injection - IVPUSH 08/05/17 09:27 4 mg ONCE ONE Administration <Ou,Fuentes - Last Filed: 08/05/17 10:27> - LABORATORY CBC & Chemistry Diagram: 08/08/17 06:00 08/08/17 06:00 - ADDITIONAL ORDERS Additional order review: Laboratory Results 08/05/17 08/05/17 02:10 02:10 Sodium 138 Potassium 4.3 Chloride 103 Carbon Dioxide 28 Anion Gap 7 L BUN 18 Creatinine 0.6 Creat Clearance w eGFR > 60 Random Glucose 97 Calcium 8.7 Total Bilirubin 0.2 AST 19 ALT 31 Alkaline Phosphatase 74 Total Protein 7.7 Albumin 3.6 Serum , Qual Negative 08/05/17 02:10 RBC 3.94 MCV 78.8 L MCHC 32.2 RDW 15.9 H MPV 7.3 L Neutrophils % 59.4 D Lymphocytes % 31.8 D Monocytes % 7.3 Eosinophils % 0.9 Basophils % 0.6 - RADIOLOGY Radiology Studies Ordered: Category Date Time Status LUMBAR SPINE CT W/O CONTRAST [CT] Stat CT Scan 08/05/17 03:01 Taken LUMBAR SPINE MRI W/O CONTRAST [MRI] Stat MRI 08/05/17 04:58 Ordered - Medications Given in the ED: ED Medications Discontinued Medications Generic Name Dose Route Start Last Admin Trade Name Rivera PRN Reason Stop Dose Admin Hydromorphone HCl 0.5 mg 08/05/17 01:39 08/05/17 02:29 Dilaudid Injection - IVPB 08/05/17 01:40 0.5 mg ONCE ONE Administration Hydromorphone HCl 0.5 mg 08/05/17 03:01 08/05/17 03:14 Dilaudid Injection - IVPB 08/05/17 03:02 0.5 mg ONCE ONE Administration <Devan Aquino - Last Filed: 08/11/17 18:45> Medical Decision Making - Medical Decision Making 08/05/17 05:00 A portion of this note was documented by scribe services under my direction. I have reviewed the details of the note, within reason, and agree with the documentation with the following case summary and management plan written by me. Patient treated in the ED. Nursing notes are reviewed and incorporated into the medical decision-making. Vital signs reviewed. Peripheral IV access obtained by the nurse, laboratory studies are drawn and sent, reviewed and interpreted by myself. Vital Signs Temp Pulse Resp BP Pulse Ox 98.5 F 87 20 126/76 99 08/05/17 00:55 08/05/17 00:55 08/05/17 00:55 08/05/17 00:55 08/05/17 00:55 27-year-old female with history of herniated disks status post 3 lumbar surgeries and fusions presents with lower back pain and numbness of the left lower extremity. Patient reports that she typically takes gabapentin which typically controls her pain. She has a history of intermittent left leg numbness. However, yesterday she started noticing gradually worsening lower back pain with constant left leg numbness. States that the pain is not severe and not controllable with her typical pain meds. Flexion of the back worsens the pain. She had an episode of stool incontinence yesterday. Denies urinary incontinence. Because of the symptoms, she came to the ED. Differential includes sciatica versus herniated disc versus cord compression. Given the history of lumbar disc herniations and left leg numbness and stool incontinence, we'll obtain a CAT scan of the lumbar spine and MRI of the lumbar spine. Pain control and reassess. 08/05/17 05:23 CT shows spinal fixation rods and intravertebral disc spacing devices in place. 08/05/17 06:30 CBC, BMP 08/05/17 02:10 08/05/17 02:10 CMP Sodium 138 mmol/L (136-145) 08/05/17 02:10 Potassium 4.3 mmol/L (3.5-5.1) 08/05/17 02:10 Chloride 103 mmol/L (98-107) 08/05/17 02:10 Carbon Dioxide 28 mmol/L (21-32) 08/05/17 02:10 Anion Gap 7 (8-16) L 08/05/17 02:10 BUN 18 mg/dL (7-18) 08/05/17 02:10 Creatinine 0.6 mg/dL (0.55-1.02) 08/05/17 02:10 Creat Clearance w eGFR > 60 (>60) 08/05/17 02:10 Random Glucose 97 mg/dL (74-106) 08/05/17 02:10 Calcium 8.7 mg/dL (8.5-10.1) 08/05/17 02:10 Total Bilirubin 0.2 mg/dL (0.2-1.0) 08/05/17 02:10 AST 19 U/L (15-37) 08/05/17 02:10 ALT 31 U/L (12-78) 08/05/17 02:10 Alkaline Phosphatase 74 U/L (45-117) 08/05/17 02:10 Total Protein 7.7 g/dl (6.4-8.2) 08/05/17 02:10 Albumin 3.6 g/dl (3.4-5.0) 08/05/17 02:10 Serum , Qual Negative 08/05/17 02:10 Labs reviewed. Pt awaiting MRI. 08/05/17 06:55 Case signed out to Dr. Trivedi for further management. <Devan Aquino - Last Filed: 08/11/17 18:45> *DC/Admit/Observation/Transfer - Attestations Scribe Attestion: 08/05/17 05:28 Documentation prepared by Kemal German, acting as medical communication specialist for Devan Aquino MD. <Kemal German - Last Filed: 08/05/17 05:34> - Discharge Dispostion Admit: Yes <Fuentes Trivedi - Last Filed: 08/05/17 10:27> <Devan Aquino - Last Filed: 08/11/17 18:45> Diagnosis at time of Disposition: Back pain - Discharge Dispostion Disposition: HOME Condition at time of disposition: Stable
[2017-08-05] MEDS ORDERED: morphine CARPU-JECT 4 MG/1 ML DISP.SYRIN IVPUSH ONE ×2 (05:24→09:26)
[2017-08-05] MEDS ORDERED: MORPHINE SULFATE 10 MG/1 ML *VIAL ONE ×2 (05:35→09:36)
[2017-08-05 08:25] LABS: URINE APPEARANCE CLEAR; URINE BILIRUBIN NEGATIVE (NEGATIVE); URINE BLOOD NEGATIVE (NEGATIVE); URINE COLOR YELLOW; URINE GLUCOSE (UA) NEGATIVE (NEGATIVE); URINE KETONE NEGATIVE (NEGATIVE); URINE LEUK ESTERASE NEGATIVE (NEGATIVE); URINE NITRITE NEGATIVE (NEGATIVE); URINE PROTEIN NEGATIVE (NEGATIVE)
[2017-08-05] MEDS ORDERED: MORPHINE SULFATE 10 MG/1 ML *VIAL IVPUSH ONE (15:15)
[2017-08-05 15:34] VITALS: BMI 33.3
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
[2017-08-05] MEDS ORDERED: HYDROmorphone HCL CARPU-JECT 2 MG/1 ML DISP.SYRIN IVPUSH PRN (15:55)
[2017-08-05] MEDS: HYDROmorphone HCL CARPU-JECT 2 MG/1 ML DISP.SYRIN IVPUSH PRN ×2 (17:11→21:00)
[2017-08-05] MEDS ORDERED: DEXAMETHASONE SOD PHOSPHATE 20 MG/5 ML VIAL IVPB ONE (18:45)
[2017-08-05] MEDS ORDERED: DEXAMETHASONE SOD PHOSPHATE 4 MG/1 ML VIAL IVPB ONE (18:45)
[2017-08-05] MEDS: DEXAMETHASONE SOD PHOSPHATE 4 MG/1 ML VIAL IVPUSH SCH (21:00)
[2017-08-06] MEDS: HYDROmorphone HCL CARPU-JECT 2 MG/1 ML DISP.SYRIN IVPUSH PRN ×2 (01:29→06:25)
[2017-08-06] MEDS: DEXAMETHASONE SOD PHOSPHATE 4 MG/1 ML VIAL IVPUSH SCH ×4 (02:09→21:00)
[2017-08-06 07:49] LABS: ANION GAP 8 (8-16); BLOOD UREA NITROGEN 12 mg/dL (7-18); CHLORIDE 101 mmol/L (98-107); CO2 27 mmol/L (21-32); CREATININE 0.5 mg/dL (0.55-1.02); GLUCOSE,RANDOM 144 mg/dL (74-106); POTASSIUM 4.4 mmol/L (3.5-5.1); SODIUM 136 mmol/L (136-145)
[2017-08-06 08:05] LABS: HEMATOCRIT 32.7 % (32.4-45.2); HEMOGLOBIN 10.3 GM/dL (10.7-15.3); MCH 25.1 pg (25.7-33.7); MCHC 31.6 g/dl (32.0-36.0); MEAN CELL VOLUME 79.5 fl (80-96); MEAN PLT VOLUME 7.6 fl (7.5-11.1); PLATELET COUNT 452 K/MM3 (134-434); RBC 4.11 M/mm3 (3.60-5.2); RDW 16.1 % (11.6-15.6); WHITE BLOOD COUNT 11.4 K/mm3 (4.0-10.0)
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
--- NOTE | 2017-08-06 09:58 | PN ---
Physical Exam: SUBJECTIVE: Patient seen and examined Patient continues to have lower back pain that is 8/10 scale. OBJECTIVE: Vital Signs Temperature 97.2 F L 08/05/17 23:00 Pulse Rate 64 08/05/17 23:00 Respiratory Rate 20 08/05/17 23:00 Blood Pressure 134/69 08/05/17 23:00 O2 Sat by Pulse Oximetry (%) 99 08/06/17 07:00 GENERAL: The patient is awake, alert, and fully oriented, in no acute distress. HEAD: Normal with no signs of trauma. EYES: PERRL, extraocular movements intact, sclera anicteric, conjunctiva clear. ENT: Ears normal, oropharynx clear without exudates, moist mucous membranes. NECK: Trachea midline, full range of motion, supple. LUNGS: Breath sounds equal, clear to auscultation bilaterally, no wheezes, no crackles, no accessory muscle use. HEART: Regular rate and rhythm, S1, S2 without murmur, rub or gallop. ABDOMEN: Soft, nontender, nondistended, normoactive bowel sounds, no guarding, no rebound, no hepatosplenomegaly, no masses. EXTREMITIES: 2+ pulses, warm, well-perfused, no edema. NEUROLOGICAL: Cranial nerves II through XII grossly intact. Normal speech, gait not observed. Left LE power 4/5 , right 5/5, decreased sensation on the left. PSYCH: Normal mood, normal affect. SKIN: Warm, dry, normal turgor, no rashes or lesions noted Laboratory Results - last 24 hr 08/06/17 08/06/17 06:00 06:00 WBC 11.4 H RBC 4.11 Hgb 10.3 L Hct 32.7 MCV 79.5 L MCH 25.1 L MCHC 31.6 L RDW 16.1 H Plt Count 452 H MPV 7.6 Sodium 136 Potassium 4.4 Chloride 101 Carbon Dioxide 27 Anion Gap 8 BUN 12 Creatinine 0.5 L Random Glucose 144 H Calcium 9.0 Active Medications Generic Name Dose Route Start Last Admin Trade Name Freq PRN Reason Stop Dose Admin Aripiprazole 10 mg 08/06/17 10:00 08/06/17 09:42 Abilify PO Not Given DAILY H[facility]TON Dexamethasone Sodium Phosphate 4 mg 08/05/17 21:00 08/06/17 08:18 Decadron Injection - IVPUSH 4 mg Q6H-IV H[facility] Administration Fluoxetine HCl 80 mg 08/06/17 10:00 Prozac - PO DAILY H[facility]TON Hydromorphone HCl 0.5 mg 08/05/17 15:58 08/06/17 06:25 Dilaudid Injection - IVPUSH 0.5 mg Q4H PRN Administration PAIN Home Medications Medication Instructions Recorded Tramadol HCl 50 mg PO DAILY 04/07/16 Esomeprazole Magnesium [Nexium 40 mg PO DAILY 02/24/17 24Hr] Fluoxetine HCl [Prozac] 50 mg PO DAILY 02/24/17 Folic Acid 1 mg PO DAILY 02/24/17 Oxycodone HCl/Acetaminophen 1 - 2 tab PO Q6H #20 tablet MDD 4 06/29/17 [Percocet 5-325 mg Tablet] Aripiprazole [Abilify] 10 mg PO HS 08/05/17 Gabapentin 300 mg PO DAILY 08/05/17 Zolpidem Tartrate [Ambien] 10 mg PO HS 08/05/17 CT LS spine- probable prior L L4-5 laminectomies and lateral recess residual osteophytes, questionable residual L4-5 posterior cage; large anterior interbody cages L4-5 and L3-4; B pedicle screws L3-4-5 with L L4 screw with lateral pedicle wall breach MRI LS spine- interbody fusion L3-4-5; L L4-5 lateral recess stenosis; scar tissue/ mild central disc bulge L3-4 and L4-5 ASSESSMENT/PLAN: Patient is a 27 y/o F w/PMH of HTN, seizures, with hx of low back pain with 3 previous surgeries (laminectomy with fusion) presents to the ER with pain in her lower back that radiates to her L leg down to her toes. #Recurrent L L4-5 radiculopathy x [address]Tom Mcneill note neurosurgeon: MRI/CT evidence L L4-5 posterior epidural fibrosis but no canal compromise at any level increased Dilaudid to 1mg IV q4h , added Lyrica as per Dr.Tom Mcneill recommendations , pain managment for consult appreciate Dr.Tom Mcneill neurosurgery consult.Discussed with Dr.Tom Mcneill to continue Decadron for now. # Hx of GERD continue nexium 20 mg po qd # Depression Hx continue with fluoxetine 80 mg po qd, abilify 10 mg po qd # Insomnia hx on ambien 10 mg po qhs prn for insomnia but it's on hold for now since getting Dilaudid IV DVT Px: Lovenox 40mg sq Visit type - Emergency Visit Emergency Visit: Yes ED Registration Date: 08/06/17 Care time: The patient presented to the Emergency Department on the above date and was hospitalized for further evaluation of their emergent condition. - New Patient This patient is new to me today: No - Critical Care Critical Care patient: No - Discharge Referral Referred to [facility] Med P.C.: No
[2017-08-06] MEDS ORDERED: FLUoxetine HCL 20 MG CAPSULE (FP) PO SCH (10:00)
[2017-08-06] MEDS ORDERED: ARIPiprazole 10 MG TABLET PO SCH (10:00)
[2017-08-06] MEDS ORDERED: GABAPENTIN 300 MG CAPSULE (FP) PO SCH (10:00)
[2017-08-06] MEDS: FLUoxetine HCL 20 MG CAPSULE (FP) PO SCH (10:11)
[2017-08-06] MEDS ORDERED: PT OWN MED DRAWER 7, Y5N ONE ×2 (10:31→20:53)
[2017-08-06] MEDS ORDERED: HYDROmorphone HCL CARPU-JECT 2 MG/1 ML DISP.SYRIN IVPB PRN ×2 (10:37→11:10)
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
[2017-08-06] MEDS: HYDROmorphone HCL CARPU-JECT 2 MG/1 ML DISP.SYRIN IVPB PRN ×3 (14:09→21:01)
[2017-08-06] MEDS: PREGABALIN 50 MG CAPSULE PO SCH ×2 (14:10→21:01)
[2017-08-06] MEDS: ARIPiprazole 10 MG TABLET PO SCH (21:01)
[2017-08-07] MEDS: DEXAMETHASONE SOD PHOSPHATE 4 MG/1 ML VIAL IVPUSH SCH ×4 (02:23→20:53)
[2017-08-07] MEDS: HYDROmorphone HCL CARPU-JECT 2 MG/1 ML DISP.SYRIN IVPB PRN ×5 (02:24→20:51)
[2017-08-07] MEDS: PREGABALIN 50 MG CAPSULE PO SCH ×3 (06:11→21:00)
[2017-08-07] MEDS ORDERED: PT OWN MED DRAWER 7, Y5N ONE ×2 (09:07→20:37)
[2017-08-07] MEDS: FLUoxetine HCL 20 MG CAPSULE (FP) PO SCH (09:09)
--- NOTE | 2017-08-07 09:29 | PN ---
<Nathan Max - Last Filed: 08/07/17 13:39> Physical Exam: SUBJECTIVE: Patient seen and examined at bedside. No acute overnight events. States that she is unable to void. Nurse states that last time she straight cathed patient, she put out 500cc per chatman. Patient states that she has 7/10 pain controlled with diluadid in her back that radiates down her L leg. She states that she has numbness and tingling in that leg. Patient is s/p 3 surgeries with at [facility] in [place]. OBJECTIVE: Vital Signs Period Temp Pulse Resp BP Sys/Carrion Pulse Ox Last 24 Hr 98.0 F-98.2 F 63-89 18-75 104-155/52-72 97-99 GENERAL: The patient is awake, alert, and fully oriented, in no acute distress. LUNGS: Breath sounds equal, clear to auscultation bilaterally, no wheezes, no crackles, no accessory muscle use. HEART: Regular rate and rhythm, S1, S2 without murmur, rub or gallop. ABDOMEN: obese, Soft, nontender, nondistended, normoactive bowel sounds, no guarding, no rebound, no hepatosplenomegaly, no masses. EXTREMITIES: 2+ pulses, warm, well-perfused, no edema. pain elicited on palpation of L leg, motor strength 4/5 of L leg, pain on palpation of lower back. NEUROLOGICAL: Cranial nerves II through XII grossly intact. Normal speech, gait not observed. PSYCH: Normal mood, normal affect. SKIN: Warm, dry, normal turgor, no rashes or lesions noted Active Medications Generic Name Dose Route Start Last Admin Trade Name Freq PRN Reason Stop Dose Admin Aripiprazole 10 mg 08/06/17 22:00 08/06/17 21:01 Abilify PO 10 mg HS HAMILTON Administration Dexamethasone Sodium Phosphate 4 mg 08/05/17 21:00 08/07/17 09:09 Decadron Injection - IVPUSH 4 mg Q6H-IV H[facility]ILTON Administration Fluoxetine HCl 80 mg 08/06/17 10:00 08/07/17 09:09 Prozac - PO 80 mg DAILY H[facility]ILTON Administration Hydromorphone HCl 1 mg 08/06/17 11:16 08/07/17 06:12 Dilaudid Injection - IVPB 1 mg Q4H PRN Administration PAIN Pregabalin 50 mg 08/06/17 14:00 08/07/17 06:11 Lyrica - PO 50 mg TID HAMILTON Administration Imaging: Lumbar Spine CT 08/05/17: Impression: No acute evidence of bony abnormality. No evidence of compression deformities, spondylolisthesis, spondylolysis. No evidence of disc herniation within the limitation of the examination. Lumbar Spine MRI 08/05/17: Impression: Status post posterior fusion of L3-L5 with interbody spacers in satisfactory alignment. L4-L5 moderate narrowing of the left lateral recess with likely impingement of the left L5 nerve root. There is also suggestion of mild surrounding soft tissue that may represent scar tissue. Correlation with contrast-enhanced MRI of the lumbar spine would be more sensitive. L5-S1 minimal central and left paracentral disc bulge without gross nerve root impingement 2.5 cm left adnexal/ovarian cyst ASSESSMENT/PLAN: 27 year old female with with past medical history of seizures and herniated disks presents to the ER with pain in her lower back that radiates to her L leg down to her toes. Monitor in obs for intractable back pain w/decreased sensation in L leg. #Back pain: 2/2 likely L4-L5 narrowing w/ impingment of L5 nerve root -Intractable back pain possibly secondary to L5-S1 disc bulge and hypoesthesia secondary to L5 nerve root impingement. -continue pain control with dilaudid 1 mg IV q4h PRN -continue Lyrica 50mg TID -Pt is well known to Dr. Skinner and his service - does not believe an emergency and pt has appointment tomorrow -Appreciate ortho reccs - Dr. Mcneill -pain management consultation appreciated #GERD: stable -Depression -continue fluoxetine 80 mg po qd, abilify 10 mg po qd #FEN -no fluids -monitor electrolytes -Regular Diet #Prophylaxis: -lovenox 30mg QD #Disposition: -continue to monitor on med surg Visit type - Emergency Visit Emergency Visit: No - New Patient This patient is new to me today: Yes Date on this admission: 08/07/17 - Critical Care Critical Care patient: No <Ej Varghese - Last Filed: 08/07/17 14:11> Physical Exam: Patient seen and examined with the resident. Continues to have pain, c/o having urinary retention now, straight cath has been ordered. As per patient had a similar episode before. As per Neurosx will get pain management involved and possible low back stimulator. Positive for urinary retention of 275ml. Vital Signs Temperature 98.9 F 08/07/17 10:00 Pulse Rate 79 08/07/17 10:00 Respiratory Rate 20 08/07/17 10:00 Blood Pressure 114/64 08/07/17 10:00 O2 Sat by Pulse Oximetry (%) 97 08/07/17 07:00 Intake & Output 08/04/17 08/05/17 08/06/17 08/07/17 23:59 23:59 23:59 23:59 Intake Total 100 50 Output Total 600 900 500 Balance -500 -850 -500 Weight 93.531 kg CBCD WBC 11.4 K/mm3 (4.0-10.0) H 08/06/17 06:00 RBC 4.11 M/mm3 (3.60-5.2) 08/06/17 06:00 Hgb 10.3 GM/dL (10.7-15.3) L 08/06/17 06:00 Hct 32.7 % (32.4-45.2) 08/06/17 06:00 MCV 79.5 fl (80-96) L 08/06/17 06:00 MCHC 31.6 g/dl (32.0-36.0) L 08/06/17 06:00 RDW 16.1 % (11.6-15.6) H 08/06/17 06:00 Plt Count 452 K/MM3 (134-434) H 08/06/17 06:00 MPV 7.6 fl (7.5-11.1) 08/06/17 06:00 CMP Sodium 136 mmol/L (136-145) 08/06/17 06:00 Potassium 4.4 mmol/L (3.5-5.1) 08/06/17 06:00 Chloride 101 mmol/L (98-107) 08/06/17 06:00 Carbon Dioxide 27 mmol/L (21-32) 08/06/17 06:00 Anion Gap 8 (8-16) 08/06/17 06:00 BUN 12 mg/dL (7-18) 08/06/17 06:00 Creatinine 0.5 mg/dL (0.55-1.02) L 02/03/18 06:00 Creat Clearance w eGFR > 60 (>60) 08/05/17 02:10 Random Glucose 144 mg/dL (74-106) H 08/06/17 06:00 Calcium 9.0 mg/dL (8.5-10.1) 08/06/17 06:00 Total Bilirubin 0.2 mg/dL (0.2-1.0) 08/05/17 02:10 AST 19 U/L (15-37) 08/05/17 02:10 ALT 31 U/L (12-78) 08/05/17 02:10 Alkaline Phosphatase 74 U/L (45-117) 08/05/17 02:10 Total Protein 7.7 g/dl (6.4-8.2) 08/05/17 02:10 Albumin 3.6 g/dl (3.4-5.0) 08/05/17 02:10 Current Medications Generic Name Dose Route Start Last Admin Trade Name Freq PRN Reason Stop Dose Admin Aripiprazole 10 mg 08/06/17 22:00 08/06/17 21:01 Abilify PO 10 mg HS HAMILTON Administration Dexamethasone Sodium Phosphate 4 mg 08/05/17 21:00 08/07/17 14:06 Decadron Injection - IVPUSH 4 mg Q6H-IV H[facility]ILTON Administration Fluoxetine HCl 80 mg 08/06/17 10:00 08/07/17 09:09 Prozac - PO 80 mg DAILY H[facility]ILTON Administration Hydromorphone HCl 0.5 mg 08/07/17 12:53 08/07/17 14:06 Dilaudid Injection - IVPUSH 0.5 mg Q3H PRN Administration PAIN Pantoprazole Sodium 20 mg 08/07/17 10:00 08/07/17 10:29 Protonix - PO 20 mg DAILY H[facility]ILTON Administration Pregabalin 50 mg 08/06/17 14:00 08/07/17 14:06 Lyrica - PO 50 mg TID HAMILTON Administration Home Medications Medication Instructions Recorded Tramadol HCl 50 mg PO DAILY 04/07/16 Esomeprazole Magnesium [Nexium 40 mg PO DAILY 02/24/17 24Hr] Fluoxetine HCl [Prozac] 50 mg PO DAILY 02/24/17 Folic Acid 1 mg PO DAILY 02/24/17 Oxycodone HCl/Acetaminophen 1 - 2 tab PO Q6H #20 tablet MDD 4 06/29/17 [Percocet 5-325 mg Tablet] Aripiprazole [Abilify] 10 mg PO HS 08/05/17 Gabapentin 300 mg PO DAILY 08/05/17 Zolpidem Tartrate [Ambien] 10 mg PO HS 08/05/17
[2017-08-07] MEDS: PANTOPRAZOLE 20 MG TABLET (FP) PO SCH (10:29)
--- NOTE | 2017-08-07 11:30 | PN ---
Progress Note (short form) - Note Progress Note: NEUROSURGERY LBP radiating to her L leg down to her toes. No significant changes Difficulty voiding and constipation likely secondary to narcotic painkillers PE: AF, VSS General- anterior vertical abdominal and midline posterior and R paramedian incisions CN- intact; Motor- 5/5 Except L EHL/in/TA/ev 4+ (improved c/w yesterday); Sensation- decreased LT/PP/vibration L: L4-5-S1; DTR-2+ CT LS spine- probable prior L L4-5 laminectomies and lateral recess residual osteophytes, ?residual L4-5 posterior cage in disc space; large anterior interbody cages L4-5 and L3-4; B pedicle screws L3-4-5 with L L4 screw with lateral pedicle wall breach MRI LS spine- interbody fusion L3-4-5; L L4-5 lateral recess stenosis; scar tissue? mild central disc bulge L3-4 and L4-5 Recurrent L L4-5 radiculopathy x 1 week MRI/CT evidence L L4-5 posterior epidural fibrosis but no canal compromise at any level Pt has had 3 operations at the same level (L4-5) and further surgery (redo L L4- 5 laminectomies, medial facetectomies) entails higher risks and lower efficacy Further pt is still soon after prior November 2016 surgery and should have a chance to f/u with her operating surgeon Consider pain management input for possible EPSI or Spinal cord stimulator trial On Lyrica Pros and cons of treatment approaches d/w pt PT/modalities
[2017-08-07] MEDS ORDERED: HYDROmorphone HCL CARPU-JECT 2 MG/1 ML DISP.SYRIN IVPUSH PRN (12:53)
--- NOTE | 2017-08-07 16:54 | CONSULT ---
Consult Consult Specialty:: pain medicine Referred by:: hospitalist Reason for Consultation:: back pain - History of Present Illness Chief Complaint: back pain History of Present Illness: 27 year old woman with a history of 3 spine surgeries last one being november 2016. currently she reports severe pain in her lower back and left leg. pain score 9/10 - Past Medical History ...LMP: 03/10/16 ...: No - Alcohol/Substance Use Hx Alcohol Use: No - Smoking History Smoking history: Never smoked Have you smoked in the past 12 months: No Aproximately how many cigarettes per day: 0 Home Medications - Allergies Allergies/Adverse Reactions: Allergies Allergy/AdvReac Type Severity Reaction Status Date / Time No Known Allergies Allergy Verified 08/05/17 01:12 - Home Medications Home Medications: Ambulatory Orders Tramadol HCl 50 mg PO DAILY 04/07/16 Esomeprazole Magnesium [Nexium 24Hr] 40 mg PO DAILY 02/24/17 Fluoxetine HCl [Prozac] 50 mg PO DAILY 02/24/17 Folic Acid 1 mg PO DAILY 02/24/17 Oxycodone HCl/Acetaminophen [Percocet 5-325 mg Tablet] 1 - 2 tab PO Q6H #20 tablet MDD 4 06/29/17 Aripiprazole [Abilify] 10 mg PO HS 08/05/17 Gabapentin 300 mg PO DAILY 08/05/17 Zolpidem Tartrate [Ambien] 10 mg PO HS 08/05/17 Physical Exam Vital Signs: Vital Signs Temperature 98.1 F 08/07/17 14:34 Pulse Rate 64 08/07/17 14:34 Respiratory Rate 18 08/07/17 14:34 Blood Pressure 112/56 08/07/17 14:34 O2 Sat by Pulse Oximetry (%) 97 08/07/17 07:00 Musculoskeletal: Yes: Back Pain Labs: CBC, BMP 08/06/17 06:00 08/06/17 06:00 Assessment/Plan 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 I offered the patient an epidural injection but patient would like to be discharged tomorrow to keep her appt with her spine surgeon 2. Titrate lyrica 75mg PO q8h 3. I would recommend discontinuing IV dilaudid upon discharge and swith to hydrocodone 5/325 1 tab PO q6h prn pain 4. COnsider scs trial as outpatient
[2017-08-07] MEDS: ARIPiprazole 10 MG TABLET PO SCH (21:35)
[2017-08-08] MEDS: HYDROmorphone HCL CARPU-JECT 2 MG/1 ML DISP.SYRIN IVPB PRN ×3 (01:18→09:41)
[2017-08-08 02:12] VITALS: TEMP 98.1
[2017-08-08] MEDS: DEXAMETHASONE SOD PHOSPHATE 4 MG/1 ML VIAL IVPUSH SCH ×2 (03:01→09:42)
[2017-08-08] MEDS: PREGABALIN 50 MG CAPSULE PO SCH (06:00)
[2017-08-08 07:35] LABS: HEMATOCRIT 34.4 % (32.4-45.2); HEMOGLOBIN 10.8 GM/dL (10.7-15.3); MCH 24.7 pg (25.7-33.7); MCHC 31.4 g/dl (32.0-36.0); MEAN CELL VOLUME 78.8 fl (80-96); MEAN PLT VOLUME 7.6 fl (7.5-11.1); PLATELET COUNT 518 K/MM3 (134-434); RBC 4.36 M/mm3 (3.60-5.2); RDW 16.2 % (11.6-15.6); WHITE BLOOD COUNT 15.2 K/mm3 (4.0-10.0)
[2017-08-08 08:19] LABS: ANION GAP 10 (8-16); BLOOD UREA NITROGEN 11 mg/dL (7-18); CALCIUM 9.7 mg/dL (8.5-10.1); CHLORIDE 101 mmol/L (98-107); CO2 26 mmol/L (21-32); CREATININE 0.6 mg/dL (0.55-1.02); GLUCOSE,RANDOM 125 mg/dL (74-106); POTASSIUM 4.4 mmol/L (3.5-5.1); SODIUM 137 mmol/L (136-145)
--- NOTE | 2017-08-08 08:32 | PN ---
Progress Note (short form) - Note Progress Note: NEUROSURGERY LBP radiating to her L leg down to her toes. Was in less pain yesterday Stated that pain meds were decreased in dosage though increased in frequency PE: AF, VSS General- anterior vertical abdominal and midline posterior and R paramedian incisions CN- intact; Motor- 5/5 Except L EHL/in/TA/ev 4+ (improved c/w yesterday); Sensation- decreased LT/PP/vibration L: L4-5-S1; DTR-2+ CT LS spine- probable prior L L4-5 laminectomies and lateral recess residual osteophytes, ?residual L4-5 posterior cage in disc space; large anterior interbody cages L4-5 and L3-4; B pedicle screws L3-4-5 with L L4 screw with lateral pedicle wall breach MRI LS spine- interbody fusion L3-4-5; L L4-5 lateral recess stenosis; scar tissue? mild central disc bulge L3-4 and L4-5 Recurrent L L4-5 radiculopathy x 1 week MRI/CT evidence L L4-5 posterior epidural fibrosis but no canal compromise at any level Pt has had 3 operations at the same level (L4-5) and further surgery (redo L L4- 5 laminectomies, medial facetectomies) entails higher risks and lower efficacy Further pt is still soon after prior November 2016 surgery and should have a chance to f/u with her operating surgeon Consider pain management input for possible EPSI or Spinal cord stimulator trial On Lyrica Pros and cons of treatment approaches above d/w pt
[2017-08-08] MEDS ORDERED: PT OWN MED DRAWER 7, Y5N ONE (09:38)
[2017-08-08] MEDS: PANTOPRAZOLE 20 MG TABLET (FP) PO SCH (09:42)
[2017-08-08] MEDS: FLUoxetine HCL 20 MG CAPSULE (FP) PO SCH (09:43)
--- NOTE | 2017-08-08 10:48 | DS ---
Physical Exam: SUBJECTIVE: Patient seen and examined at bedside. Patient reports that her pain is around the same in intensity as it was yesterday. Patient had chatman removed 1 hour prior to my exam. She has not been able to void spontaneously since chatman removal. Prior to discharge, patient was straight catheterized at 10am and 600cc urine was removed. OBJECTIVE: Vital Signs Period Temp Pulse Resp BP Sys/Carrion Pulse Ox Last 24 Hr 98.1 F-98.3 F 56-69 18-20 112-140/56-79 97-98 PHYSICAL EXAM GENERAL: The patient is awake, alert, and fully oriented, in no acute distress. LUNGS: Breath sounds equal, clear to auscultation bilaterally, no wheezes, no crackles, no accessory muscle use. HEART: Regular rate and rhythm, S1, S2 without murmur, rub or gallop. ABDOMEN: obese, Soft, nontender, nondistended, normoactive bowel sounds, no guarding, no rebound, no hepatosplenomegaly, no masses. EXTREMITIES: 2+ pulses, warm, well-perfused, no edema. pain elicited on palpation of L leg, motor strength 4/5 of L leg, pain on palpation of lower back. : Patient was straight catheterized at 10am with 600cc urine NEUROLOGICAL: Cranial nerves II through XII grossly intact. Normal speech, gait not observed. PSYCH: Normal mood, normal affect. SKIN: Warm, dry, normal turgor, no rashes or lesions noted LABS Laboratory Results - last 24 hr 08/08/17 08/08/17 06:00 06:00 WBC 15.2 H D RBC 4.36 Hgb 10.8 Hct 34.4 MCV 78.8 L MCH 24.7 L MCHC 31.4 L RDW 16.2 H Plt Count 518 H MPV 7.6 Sodium 137 Potassium 4.4 Chloride 101 Carbon Dioxide 26 Anion Gap 10 BUN 11 Creatinine 0.6 Random Glucose 125 H Calcium 9.7 HOSPITAL COURSE: Date of Admission:08/06/17 27 year old female with a past medical history of chronic back pain and seizures was admitted to the hospital for acute exacerbation of back pain that radiated to her L leg and toes. Patient had decreased sensation in her L leg. Patient had spine surgery several times by Dr. Skinner at [facility] in [place] in he past and has an appointment on 08/08 with her surgeon. Patient was treated with dilaudid in the hospital and transitioned to percocet. She was straight catheterized before discharge. Patient refused to straight cath on her own outside of the hospital and requested indwelling chatman - which was not provided due to risk of infection. Once she was straight cath'd - she was discharged to go to her appointment at [facility] in [place] with her prior orthopedic surgeon. Date of Discharge: 08/08/17 Minutes to complete discharge: 35 <Nathan Max - Last Filed: 08/08/17 13:00> Physical Exam: Patient seen and examined agree with the plan. Patient had an appointment with her surgeon today at !!:30am and stated that she cannot miss her appointment since the waiting time is 3 months to get an appointment. 2 days tierneyos , contacted the surgeon and stated continue the plan and requested that she does not miss her appointment. <Ej Varghese - Last Filed: 08/08/17 19:49> Discharge Summary Reason For Visit: BACK PAIN Current Active Problems Back pain (Acute) - Home Medications Comprehensive Discharge Medication List: Ambulatory Orders Tramadol HCl 50 mg PO DAILY 04/07/16 Esomeprazole Magnesium [Nexium 24Hr] 40 mg PO DAILY 02/24/17 Fluoxetine HCl [Prozac] 50 mg PO DAILY 02/24/17 Folic Acid 1 mg PO DAILY 02/24/17 Oxycodone HCl/Acetaminophen [Percocet 5-325 mg Tablet] 1 - 2 tab PO Q6H #20 tablet MDD 4 06/29/17 Aripiprazole [Abilify] 10 mg PO HS 08/05/17 Gabapentin 300 mg PO DAILY 08/05/17 Zolpidem Tartrate [Ambien] 10 mg PO HS 08/05/17 Hydrocodone/Acetaminophen [Hydrocodone-Acetamin 5-325 mg] 1 each PO DAILY #18 tablet MDD 20mg 08/07/17 Oxycodone HCl/Acetaminophen [Percocet 5-325 mg Tablet] 1 - 2 tab PO Q6H #18 tab MDD 4 08/08/17 <Nathan Max - Last Filed: 08/08/17 13:00> - Home Medications Comprehensive Discharge Medication List: Ambulatory Orders Tramadol HCl 50 mg PO DAILY 04/07/16 Esomeprazole Magnesium [Nexium 24Hr] 40 mg PO DAILY 02/24/17 Fluoxetine HCl [Prozac] 50 mg PO DAILY 02/24/17 Folic Acid 1 mg PO DAILY 02/24/17 Oxycodone HCl/Acetaminophen [Percocet 5-325 mg Tablet] 1 - 2 tab PO Q6H #20 tablet MDD 4 06/29/17 Aripiprazole [Abilify] 10 mg PO HS 08/05/17 Gabapentin 300 mg PO DAILY 08/05/17 Zolpidem Tartrate [Ambien] 10 mg PO HS 08/05/17 Hydrocodone/Acetaminophen [Hydrocodone-Acetamin 5-325 mg] 1 each PO DAILY #18 tablet MDD 20mg 08/07/17 Oxycodone HCl/Acetaminophen [Percocet 5-325 mg Tablet] 1 - 2 tab PO Q6H #18 tab MDD 4 08/08/17 <Ej Varghese - Last Filed: 08/08/17 19:49> Condition: Stable - Instructions Diet, Activity, Other Instructions: You were admitted to the hospital for the treatment of back pain and urinary incontinence. Medical Recommendations: We will prescribe you 3 days of percocet - please take 1 pill up to 4 times a day as needed for pain. Please resume your other home medications. If you cannot urinate, please use a straight catheter to self-catheterize until you see a urologist. Please make an appointment with your primary care physician within 1 week of discharge. Please make an appointment with the urologist Dr. Zhao within 1 week of discharge Please make an appointment with your spine surgeon If you experience severe, unrelenting pain, fevers or chills, please return to the emergency room. Referrals: Nathan Zhao MD [Staff Physician] - 1 Week ON STAFF,NOT [Primary Care Provider] - 1 Week Disposition: HOME This patient is new to me today: No Emergency Visit: No Critical Care patient: No - Discharge Referral Referred to [facility] No <Nathan Max - Last Filed: 08/08/17 13:00>
[2017-08-08 11:46] VITALS: BP 145/73; PULSE 60
== END 2017-08-08 10:48 | disposition home or self-care (01) | DRG 552 ==
LOC: JER 00:49 → JERBED 10:27 → J8W 14:35 → OBSVTOIN 08-06 11:12
PROVIDERS: ADMIT Internal Medicine; ATTEND Internal Medicine
DX: M51.16 Intervertebral disc disorders with radiculopathy, lumbar region (principal); M96.1 Postlaminectomy syndrome, not elsewhere classified; I10 Essential (primary) hypertension; N83.202 Unspecified ovarian cyst, left side; K21.9 Gastro-esophageal reflux disease without esophagitis; F32.9 Major depressive disorder, single episode, unspecified; G47.00 Insomnia, unspecified; K58.9 Irritable bowel syndrome, unspecified; Y83.8 Other surgical procedures as the cause of abnormal reaction of the patient, or of later complication, without mention of misadventure at the time of the procedure
CPT/HCPCS: 36415; 72100-TC-FY; 72131-TC; 72148-TC; 80048; 80053; 81003; 84703; 85025; 85027; 99283-25; G0378

== ENCOUNTER 2017-09-07 20:12 | Emergency (ER) | payer OTHER ==
[2017-09-07 20:24] VITALS: BP 132/82; PULSE 75; TEMP 98; BMI 30.7
[2017-09-07] MEDS ORDERED: morphine CARPU-JECT 2 MG/1 ML DISP.SYRIN SQ ONE ×2 (20:38→21:00)
[2017-09-07] MEDS ORDERED: KETOROLAC TROMETHAMINE 30 MG/1 ML VIAL IM ONE (20:38)
[2017-09-07] MEDS ORDERED: KETOROLAC TROMETHAMINE 30 MG/1 ML VIAL ONE (20:49)
[2017-09-07] MEDS ORDERED: MORPHINE SULFATE 10 MG/1 ML *VIAL ONE (20:49)
--- NOTE | 2017-09-07 21:05 | PDOC ---
History of Present Illness - General Chief Complaint: Back Pain Stated Complaint: BACK PAIN Time Seen by Provider: 09/07/17 20:30 History Source: Patient - History of Present Illness Initial Comments: 09/07/17 21:05 27-year-old female with history of back surgery complaining of back pain radiating to the left lower extremity since this evening. Denies numbness and tingling to the lower extremity, denies incontinence of bowel or urine. Denies trauma/injury. Patient reports that she took Naprosyn and gabapentin with no relief in pain. Patient reports that she ran out of her Percocet. 09/07/17 21:06 past medical history as listed 09/07/17 21:08 Past History - Past Medical History Allergies/Adverse Reactions: Allergies Allergy/AdvReac Type Severity Reaction Status Date / Time No Known Allergies Allergy Verified 09/07/17 21:11 Home Medications: Ambulatory Orders Tramadol HCl 50 mg PO DAILY 04/07/16 Esomeprazole Magnesium [Nexium 24Hr] 40 mg PO DAILY 02/24/17 Fluoxetine HCl [Prozac] 50 mg PO DAILY 02/24/17 Folic Acid 1 mg PO DAILY 02/24/17 Aripiprazole [Abilify] 10 mg PO HS 08/05/17 Gabapentin 300 mg PO DAILY 08/05/17 Zolpidem Tartrate [Ambien] 10 mg PO HS 08/05/17 Hydrocodone/Acetaminophen [Hydrocodone-Acetamin 5-325 mg] 1 each PO DAILY #18 tablet MDD 20mg 08/07/17 Ibuprofen 600 mg PO QID PRN #20 tablet 09/07/17 Oxycodone HCl/Acetaminophen [Percocet 5-325 mg Tablet] 1 - 2 tab PO Q6H #20 tablet MDD 4 09/07/17 Anemia: Yes COPD: No Diabetes: Yes HTN: Yes Seizures: Yes - Surgical History Abdominal Surgery: Yes Cholecystectomy: Yes GI Surgery: Yes (gastric surgery) - Immunization History Immunization Up to Date: Yes - Suicide/Smoking/Psychosocial Hx Smoking History: Never smoked Have you smoked in the past 12 months: No Number of Cigarettes Smoked Daily: 0 Cigars Per Day: 0 Hx Alcohol Use: No Drug/Substance Use Hx: No Substance Use Type: None Hx Substance Use Treatment: No Review of Systems - Review of Systems Able to Perform ROS?: Yes Is the patient limited Ecuadorean proficient: No Constitutional: No: Symptoms Reported, See HPI, Chills, Diaphoresis, Fever, Loss of Appetite, Malaise, Night Sweats, Weakness, Weight Stable, Unintentional Wgt. Loss, Unexplained wgt Loss, Other ABD/GI: No: Symptoms Reported, See HPI, Abdominal Distended, Abd. Pain w/ defecation, Blood Streaked Bowels, Constipated, Diarrhea, Difficulty Swallowing , Nausea, Poor Appetite, Poor Fluid Intake, Rectal Bleeding, Vomiting, Indigestion, Abdominal cramping, Tarry Stools, Other : No: Symptoms Reported, See HPI, Burning, Dysuria, Discharge, Frequency, Flank Pain, Hematuria, Incontinence, Pain, Urgency, Testicular Mass, Testicular Swelling, Lesions, Testicular Pain, Other Musculoskeletal: Yes: Back Pain. No: Symptoms Reported, See HPI, Gout, Joint Pain, Joint Swelling, Muscle Pain, Muscle Weakness, Neck Pain, Joint Stiffness, Other *Physical Exam - Vital Signs Last Vital Signs Temp Pulse Resp BP Pulse Ox 98 F 75 16 132/82 100 09/07/17 20:22 09/07/17 20:22 09/07/17 20:22 09/07/17 20:22 09/07/17 20:22 - Physical Exam General Appearance: Yes: Appropriately Dressed, Mild Distress. No: Nourished, Apparent Distress, Disheveled, Moderate Distress, Severe Distress, Alcohol on Breath, Intoxicated, Cachetic, Obese, Thin, Other Gastrointestinal/Abdominal: positive: Normal Bowel Sounds, Soft. negative: Tender Musculoskeletal: positive: Normal Inspection, Vertebral Tenderness (Lumbar area tenderness). negative: CVA Tenderness Extremity: positive: Normal Capillary Refill, Normal Inspection, Normal Range of Motion Integumentary: positive: Normal Color, Dry, Warm Neurologic: positive: senior marketing manager II-XII NML intact, Fully Oriented, Alert, Normal Mood/ Affect, Motor Strength 5/5 Medical Decision Making - Medical Decision Making 09/07/17 21:08 A: back pain P: UA, urine Pain control 09/07/17 21:58 Patient reports slight improvement in pain. *DC/Admit/Observation/Transfer Diagnosis at time of Disposition: Back pain Qualifiers: Back pain location: low back pain Chronicity: acute Back pain laterality: midline Sciatica presence: with sciatica Sciatica laterality: sciatica of left side Qualified Code(s): M54.42 - Lumbago with sciatica, left side - Discharge Dispostion Disposition: HOME - Prescriptions Prescriptions: Ibuprofen 600 mg PO QID PRN #20 tablet PRN Reason: Back Pain Oxycodone HCl/Acetaminophen [Percocet 5-325 mg Tablet] 1 - 2 tab PO Q6H #20 tablet MDD 4 - Referrals - Patient Instructions Printed Discharge Instructions: Low Back Pain Additional Instructions: Follow up with your doctor as soon as possible. Take percocet as prescribed. take ibuprofen every 6 hours as needed for pain. - Post Discharge Activity
[2017-09-07 21:38] LABS: URINE APPEARANCE CLEAR; URINE BILIRUBIN NEGATIVE (NEGATIVE); URINE BLOOD NEGATIVE (NEGATIVE); URINE COLOR STRAW; URINE GLUCOSE (UA) NEGATIVE (NEGATIVE); URINE KETONE NEGATIVE (NEGATIVE); URINE LEUK ESTERASE NEGATIVE (NEGATIVE); URINE NITRITE NEGATIVE (NEGATIVE); URINE PROTEIN NEGATIVE (NEGATIVE); URINE UROBILINOGEN NEGATIVE mg/dL (0.2-1.0)
[2017-09-07 21:39] LABS: HCG,QUALITATIVE URINE NEGATIVE
== END 2017-09-07 22:32 | disposition home or self-care (01) ==
LOC: JER 20:12
PROC: 3E0233Z Introduction of Anti-inflammatory into Muscle, Percutaneous Approach (ICD-10-PCS; principal; 2017-09-07)
PROC: 3E023NZ Introduction of Analgesics, Hypnotics, Sedatives into Muscle, Percutaneous Approach (ICD-10-PCS; 2017-09-07)
PROC: 3E023NZ Introduction of Analgesics, Hypnotics, Sedatives into Muscle, Percutaneous Approach (ICD-10-PCS; 2017-09-07)
DX: M54.42 Lumbago with sciatica, left side (principal); I10 Essential (primary) hypertension; E11.9 Type 2 diabetes mellitus without complications
CPT/HCPCS: 81003; 84703; 99281-25

== ENCOUNTER 2017-09-19 22:19 | Emergency (ER) | payer OTHER ==
[2017-09-19 22:53] VITALS: PULSE 74; TEMP 97.9; BMI 30.7
--- NOTE | 2017-09-20 04:20 | PDOC ---
History of Present Illness - General History Source: Patient Exam Limitations: No Limitations - History of Present Illness Initial Comments: 09/20/17 06:19 The patient is a 27 year old female, with a significant past medical history of Anemia, DM, HTN, Seizures, Lupus, Rheumatoid Arthritis who presents to the emergency department with lower back pain for the past day. Patient reports R sided lower back pain radiating down R leg. Patient reports associated numbness and tingling of R leg. Patient notes her numbness/tingling is similar to her episodes in the past and however has been much painful. Patient reports taking her Gabapentin and Naproxen however denies any relief. Patient is ambulatory with cane. Patient denies any urine or bowel incontinence. Patient denies any recent trauma, injuries or falls. Patient denies chest pain, headache or dizziness. Patient denies fever, chills, abdominal pain, nausea, vomit, diarrhea or constipation. Patient denies dysuria, frequency, urgency or hematuria. Patient denies sick contacts or recent travel. Allergies: NKA Past surgical history: Spinal fusion, cholecystectomy Social history: None History obtained from [employer] z[facility]jero #[id number] <Mandi Greenwood - Last Filed: 09/20/17 06:19> <Amada Saravia - Last Filed: 09/20/17 07:21> - General Chief Complaint: Back Pain Stated Complaint: BACK PAIN Time Seen by Provider: 09/20/17 03:40 Past History <Mandi Greenwood - Last Filed: 09/20/17 06:19> - Past Medical History Anemia: Yes COPD: No Diabetes: Yes HTN: Yes Seizures: Yes - Surgical History Abdominal Surgery: Yes Cholecystectomy: Yes GI Surgery: Yes (gastric surgery) - Immunization History Immunization Up to Date: Yes - Suicide/Smoking/Psychosocial Hx Smoking History: Never smoked Have you smoked in the past 12 months: No Number of Cigarettes Smoked Daily: 0 Cigars Per Day: 0 Information on smoking cessation initiated: No Hx Alcohol Use: No Drug/Substance Use Hx: No Substance Use Type: None Hx Substance Use Treatment: No <Amada Saravia - Last Filed: 09/20/17 07:21> - Past Medical History Allergies/Adverse Reactions: Allergies Allergy/AdvReac Type Severity Reaction Status Date / Time No Known Allergies Allergy Verified 09/19/17 22:53 Home Medications: Ambulatory Orders Tramadol HCl 50 mg PO DAILY 04/07/16 Esomeprazole Magnesium [Nexium 24Hr] 40 mg PO DAILY 02/24/17 Fluoxetine HCl [Prozac] 50 mg PO DAILY 02/24/17 Folic Acid 1 mg PO DAILY 02/24/17 Aripiprazole [Abilify] 10 mg PO HS 08/05/17 Gabapentin 300 mg PO DAILY 08/05/17 Zolpidem Tartrate [Ambien] 10 mg PO HS 08/05/17 Hydrocodone/Acetaminophen [Hydrocodone-Acetamin 5-325 mg] 1 each PO DAILY #18 tablet MDD 20mg 08/07/17 Ibuprofen 600 mg PO QID PRN #20 tablet 09/07/17 Oxycodone HCl/Acetaminophen [Percocet 5-325 mg Tablet] 1 - 2 tab PO Q6H #20 tablet MDD 4 09/07/17 Naproxen 500 mg PO BID PRN #30 tablet 09/20/17 Review of Systems - Review of Systems Able to Perform ROS?: Yes Comments:: 09/20/17 06:20 CONSTITUTIONAL: Absent: fever, no chills, no fatigue EYES: Absent: visual changes ENT: Absent: ear pain, no sore throat CARDIOVASCULAR: Absent: chest pain, no palpitations RESPIRATORY: Absent: cough, no SOB GI: Absent: abdominal pain, no nausea, no vomiting, no constipation, no diarrhea GENITOURINARY: Absent: dysuria, no frequency, no hematuria MUSCULOSKELETAL: +lower back pain. Absent: no arthralgia, no myalgia SKIN: Absent: rash NEURO: Absent: headache <Mandi Greenwood - Last Filed: 09/20/17 06:19> *Physical Exam - Vital Signs Last Vital Signs Temp Pulse Resp BP Pulse Ox 97.9 F 74 18 124/68 99 09/19/17 22:49 09/19/17 22:49 09/19/17 22:49 09/19/17 22:49 09/19/17 22:49 <Mandi Greenwood - Last Filed: 09/20/17 06:19> - Vital Signs Last Vital Signs Temp Pulse Resp BP Pulse Ox 97.9 F 74 18 124/68 99 09/19/17 22:49 09/19/17 22:49 09/19/17 22:49 09/19/17 22:49 09/19/17 22:49 - Physical Exam General Appearance: Yes: Nourished, Appropriately Dressed. No: Apparent Distress HEENT: positive: EOMI, Normal Voice, Symmetrical Neck: positive: Trachea midline. negative: Tender Respiratory/Chest: positive: Lungs Clear Cardiovascular: positive: Regular Rhythm, Regular Rate Musculoskeletal: positive: Other (no CVAT, +L sided paraspinal tnd to palpation , no midline tnd, +healed surgical scars) Extremity: positive: Normal Capillary Refill, Normal Inspection, Normal Range of Motion Neurologic: positive: Fully Oriented, Alert, Normal Mood/Affect, Normal Response , Motor Strength 5/5, Other (ambulating in ER with steady gait with use of cane) . negative: Sensory Deficit Deep Tendon Reflexes: Knee (L): 2+, Knee (R): 2+ <Amada Saravia - Last Filed: 09/20/17 07:21> ED Treatment Course - Medications Given in the ED: ED Medications Discontinued Medications Generic Name Dose Route Start Last Admin Trade Name Rivera PRN Reason Stop Dose Admin Cyclobenzaprine HCl 5 mg 09/20/17 05:41 09/20/17 06:18 Cyclobenzaprine Hcl PO 09/20/17 05:42 5 mg ONCE ONE Administration Oxycodone/Acetaminophen 1 combo 09/20/17 05:40 09/20/17 06:18 Percocet 5/325 - PO 09/20/17 05:41 1 combo ONCE ONE Administration <Mandi Greenwood - Last Filed: 09/20/17 06:19> Medical Decision Making - Medical Decision Making 09/20/17 06:10 Pt seen/examined. Seems to have acute on chronic LBP which she has been dealing with for months to years. There is nothing different about the quality of the pain, it is just more severe than usual. Takes gabapentin and naproxen at home, usually takes care of the pain but today it didn't. No red flags - no trauma, no fever, no neurological sxs. No other complaints. Will attempt pain control in ER with percocet/flexeril. Anticipate dc home. 09/20/17 07:15 Pt feeling improved but asking for "something else" for pain. Urine hcg obtained - negative. Will give toradol 60mg IM and recommend increasing her gabapentin to 600mg TID and f/u with her PMD. Ambulating in ER. Anticipate dc. <Amada Saravia - Last Filed: 09/20/17 07:21> *DC/Admit/Observation/Transfer - Attestations Scribe Attestion: 09/20/17 06:20 Documentation prepared by Mandi Greenwood, acting as medical secretary receptionist for Amada Saravia, DO <Mandi Greenwood - Last Filed: 09/20/17 06:19> - Discharge Dispostion Admit: No <Amada Saravia - Last Filed: 09/20/17 07:21> Diagnosis at time of Disposition: Back pain - Discharge Dispostion Disposition: HOME - Prescriptions Prescriptions: Naproxen 500 mg PO BID PRN #30 tablet PRN Reason: Pain - Referrals Referrals: Akhil Higginbotham MD [Primary Care Provider] - - Patient Instructions Printed Discharge Instructions: DI for Low Back Pain Additional Instructions: You were seen in the ER for back pain which is likely related to your past back pain problems. Please increase your gabapentin dose to 600mg three times a day and follow up with your primary care doctor within the next 2 days. Please take naproxen as needed. Return to the ER if weakness, numbness or inability to walk. Usted fue visto en la kailey de emergencias por dolor de espalda, que probablemente est relacionado con marito anteriores problemas de dolor de espalda. Aumente la dosis de gabapentina a 600 mg smooth veces al da y bello un seguimiento con alan mdico de atencin primaria en los prximos 2 baca. Por favor tome naproxeno segn sea necesario. Regrese a la kailey de emergencia si siente debilidad, entumecimiento o incapacidad para caminar. - Post Discharge Activity
[2017-09-20] MEDS ORDERED: CYCLOBENZAPRINE HCL 5 MG TABLET PO ONE (05:41)
[2017-09-20] MEDS ORDERED: CYCLOBENZAPRINE HCL 10 MG TABLET (FP) ONE (06:12)
[2017-09-20] MEDS ORDERED: KETOROLAC TROMETHAMINE 60 MG/2 ML VIAL IM ONE (07:14)
[2017-09-20] MEDS ORDERED: KETOROLAC TROMETHAMINE 60 MG/2 ML VIAL ONE (07:26)
[2017-09-20 07:46] VITALS: BP 128/66
== END 2017-09-20 07:46 | disposition home or self-care (01) ==
LOC: JER 22:19
PROC: 3E0233Z Introduction of Anti-inflammatory into Muscle, Percutaneous Approach (ICD-10-PCS; principal; 2017-09-19)
DX: M54.5 Low back pain (principal); I10 Essential (primary) hypertension; E11.9 Type 2 diabetes mellitus without complications; D64.9 Anemia, unspecified; G43.909 Migraine, unspecified, not intractable, without status migrainosus; M06.9 Rheumatoid arthritis, unspecified; M32.9 Systemic lupus erythematosus, unspecified
CPT/HCPCS: 84703; 99281-25

== ENCOUNTER 2017-09-27 19:32 | Emergency (ER) | payer OTHER ==
--- NOTE | 2017-09-27 20:09 | PDOC ---
Rapid Medical Evaluation Time Seen by Provider: 09/27/17 20:06 Medical Evaluation: Allergies Allergy/AdvReac Type Severity Reaction Status Date / Time No Known Allergies Allergy Verified 09/19/17 22:53 I have performed a brief in-person evaluation of this patient. The patient presents with a chief complaint of: 3 previous back surgeries. worsening low back pain radiating down left leg since yesterday. no falls or new trauma to back. Pertinent physical exam findings: no exam performed in triage - patient in wheelchair with difficulty getting up I have ordered the following: hcg The patient will proceed to the ED for further evaluation.
[2017-09-27 20:10] VITALS: BP 137/76; PULSE 108; TEMP 97.9; BMI 30.7
[2017-09-27] MEDS ORDERED: KETOROLAC TROMETHAMINE 60 MG/2 ML VIAL IM ONE (22:43)
[2017-09-27] MEDS ORDERED: diazePAM 2 MG TABLET PO ONE (22:43)
[2017-09-27] MEDS ORDERED: KETOROLAC TROMETHAMINE 60 MG/2 ML VIAL ONE (23:02)
[2017-09-27] MEDS ORDERED: diazePAM 2 MG TABLET ONE (23:02)
--- NOTE | 2017-09-27 23:17 | PDOC ---
History of Present Illness - General History Source: Patient Exam Limitations: No Limitations - History of Present Illness Initial Comments: 09/27/17 23:26 The patient is a 27 year old female, with a significant past medical history of anemia, diabetes mellitus, chronic back pain, hypertension, seizures, lupus, rheumatoid arthritis, who presents to the emergency department with, progressively worsening left lower back pain beginning earlier today. The patient states she received an injection from her Lens Block Gauger in her right arm for her rheumatoid arthritis earlier today and called her doctor complaining of the lower back pain who advised her come to the ED for evaluation. The patient states the left lower back pain is made worse when walking and with movement. She also states the left lower back pain radiates down the left leg. She denies any recent falls or trauma. Patient reports she had a lumbar MRI performed last month. She denies recent fevers, chills, headache or dizziness. She denies recent nausea, vomit, diarrhea or constipation. She denies recent dysuria, frequency, urgency or hematuria. She denies recent chest pain or shortness of breath. She denies any bowel or urinary incontinence. She denies any numbness or loss of sensation. Allergies: NKA Past surgical history: spinal fusion, cholecystectomy <Kemal German - Last Filed: 09/27/17 23:33> <Ashlyn Morales - Last Filed: 09/28/17 01:02> - General Chief Complaint: Pain Stated Complaint: PAIN Time Seen by Provider: 09/27/17 20:06 Past History <Kemal German - Last Filed: 09/27/17 23:33> - Past Medical History Anemia: Yes COPD: No Diabetes: Yes HTN: Yes Seizures: Yes - Surgical History Abdominal Surgery: Yes Cholecystectomy: Yes GI Surgery: Yes (gastric surgery) Neurologic Surgery: Yes (back surg x'3) - Immunization History Immunization Up to Date: Yes - Suicide/Smoking/Psychosocial Hx Smoking History: Never smoked Have you smoked in the past 12 months: No Number of Cigarettes Smoked Daily: 0 Cigars Per Day: 0 Hx Alcohol Use: No Drug/Substance Use Hx: No Substance Use Type: None Hx Substance Use Treatment: No <Ashlyn Morales - Last Filed: 09/28/17 01:02> - Past Medical History Allergies/Adverse Reactions: Allergies Allergy/AdvReac Type Severity Reaction Status Date / Time No Known Allergies Allergy Verified 09/27/17 23:14 Home Medications: Ambulatory Orders Esomeprazole Magnesium [Nexium 24Hr] 40 mg PO DAILY 02/24/17 Fluoxetine HCl [Prozac] 50 mg PO DAILY 02/24/17 Folic Acid 1 mg PO DAILY 02/24/17 Aripiprazole [Abilify] 10 mg PO HS 08/05/17 Gabapentin 300 mg PO DAILY 08/05/17 Zolpidem Tartrate [Ambien] 10 mg PO HS 08/05/17 Naproxen 500 mg PO BID PRN #30 tablet 09/20/17 Cyclobenzaprine HCl [Flexeril 10 mg] 10 mg PO BID PRN #10 tablet 09/28/17 Ibuprofen [Motrin -] 600 mg PO TID PRN #20 tablet 09/28/17 Review of Systems - Review of Systems Comments:: 09/27/17 23:27 CONSTITUTIONAL: Absent: fever, no chills, no fatigue EYES: Absent: visual changes ENT: Absent: ear pain, no sore throat CARDIOVASCULAR: Absent: chest pain, no palpitations RESPIRATORY: Absent: cough, no SOB GI: Absent: abdominal pain, no nausea, no vomiting, no constipation, no diarrhea GENITOURINARY: Absent: dysuria, no frequency, no hematuria MUSKULOSKELETAL: Present: +Left lower back pain SKIN: Absent: rash NEURO: Absent: headache <Kemal German - Last Filed: 09/27/17 23:33> *Physical Exam - Vital Signs Last Vital Signs Temp Pulse Resp BP Pulse Ox 97.9 F 108 H 22 137/76 100 09/27/17 20:08 09/27/17 20:08 09/27/17 20:08 09/27/17 20:08 09/27/17 20:08 - Physical Exam Comments: 09/27/17 23:28 GENERAL: Well developed, well nourished. Awake and alert. HEENT: Normocephalic, atraumatic. PERRLA, EOMI. No conjunctival pallor. Sclera are non- icteric. Moist mucous membranes. Oropharynx is clear. NECK: Supple. Full ROM. No JVD. Carotid pulses 2+ and symmetric, without bruits. No thyromegaly. No lymphadenopathy. CARDIOVASCULAR: Regular rate and rhythm. No murmurs, rubs, or gallops. Distal pulses are 2+ and symmetric. PULMONARY: No evidence of respiratory distress. Lungs clear to auscultation bilaterally. No wheezing, rales or rhonchi. ABDOMINAL: Soft. Non-tender. Non-distended. No rebound or guarding. No organomegaly. Normoactive bowel sounds. MUSCULOSKELETAL +Left lower lumbar pain radiating by buttocks down left leg. No weakness. Normal range of motion at all joints. No bony deformities. EXTREMITIES: No cyanosis. No clubbing. No edema. No calf tenderness. SKIN: Warm and dry. Normal capillary refill. No rashes. No jaundice. NEUROLOGICAL: Alert, awake, appropriate. Cranial nerves 2-12 intact. No deficits to light touch and temperature in face, upper extremities and lower extremities. No motor deficits in the in face, upper extremities and lower extremities. Normoreflexic in the upper and lower extremities. Normal speech. Toes are down- going bilaterally. Gait is normal without ataxia. PSYCHIATRIC: Cooperative. Good eye contact. Appropriate mood and affect. <Kemal German - Last Filed: 09/27/17 23:33> - Vital Signs Last Vital Signs Temp Pulse Resp BP Pulse Ox 97.9 F 108 H 22 137/76 100 09/27/17 20:08 09/27/17 20:08 09/27/17 20:08 09/27/17 20:08 09/27/17 20:08 <Ashlyn Morales - Last Filed: 09/28/17 01:02> ED Treatment Course - ADDITIONAL ORDERS Additional order review: Laboratory Results 09/27/17 20:54 Urine HCG, Qual Negative - Medications Given in the ED: ED Medications Discontinued Medications Generic Name Dose Route Start Last Admin Trade Name Rivera PRN Reason Stop Dose Admin Diazepam 2 mg 09/27/17 22:43 09/27/17 23:14 Valium - PO 09/27/17 22:44 2 mg ONCE ONE Administration Ketorolac Tromethamine 60 mg 09/27/17 22:43 09/27/17 23:14 Toradol Injection - IM 09/27/17 22:44 60 mg ONCE ONE Administration Oxycodone/Acetaminophen 1 combo 09/27/17 22:42 09/27/17 23:13 Percocet 5/325 - PO 09/27/17 22:43 1 combo ONCE ONE Administration <German,Kemal - Last Filed: 09/27/17 23:33> - ADDITIONAL ORDERS Additional order review: Laboratory Results 09/27/17 20:54 Urine HCG, Qual Negative - Medications Given in the ED: ED Medications Discontinued Medications Generic Name Dose Route Start Last Admin Trade Name Rivera PRN Reason Stop Dose Admin Diazepam 2 mg 09/27/17 22:43 09/27/17 23:14 Valium - PO 09/27/17 22:44 2 mg ONCE ONE Administration Ketorolac Tromethamine 60 mg 09/27/17 22:43 09/27/17 23:14 Toradol Injection - IM 09/27/17 22:44 60 mg ONCE ONE Administration Oxycodone/Acetaminophen 1 combo 09/27/17 22:42 09/27/17 23:13 Percocet 5/325 - PO 09/27/17 22:43 1 combo ONCE ONE Administration <Ashlyn Morales - Last Filed: 09/28/17 01:02> Medical Decision Making - Medical Decision Making 09/27/17 23:17 27-year-old female with a history of back surgeries and chronic back pain presents with left back pain radiating down her buttocks and leg. Patient does not complain of urinary or fecal incontinence. She states she saw her escrow assistant today and got some medication for her arthritis She doesn't have fever or chills. No dysuria or vomiting test is negative pt's symptoms improved with percocet <Ashlyn Morales - Last Filed: 09/28/17 01:02> *DC/Admit/Observation/Transfer - Attestations Scribe Attestion: 09/27/17 23:31 Documentation prepared by Kemal German, acting as registered medical assistant for Ashlyn Morales MD. <Kemal German - Last Filed: 09/27/17 23:33> <Ashlyn Morales - Last Filed: 09/28/17 01:02> Diagnosis at time of Disposition: Chronic back pain Qualifiers: Back pain location: low back pain Back pain laterality: left Sciatica presence : with sciatica Sciatica laterality: sciatica of left side Qualified Code(s): M54.42 - Lumbago with sciatica, left side - Discharge Dispostion Disposition: HOME Condition at time of disposition: Stable - Prescriptions Prescriptions: Cyclobenzaprine HCl [Flexeril 10 mg] 10 mg PO BID PRN #10 tablet PRN Reason: Muscle Spasms Ibuprofen [Motrin -] 600 mg PO TID PRN #20 tablet PRN Reason: Back Pain - Patient Instructions Printed Discharge Instructions: DI for Low Back Pain Additional Instructions: please followup with your regular physician fiber picker your medications at your pharmacy
== END 2017-09-28 01:13 | disposition home or self-care (01) ==
LOC: JER 19:32
PROC: 3E0233Z Introduction of Anti-inflammatory into Muscle, Percutaneous Approach (ICD-10-PCS; principal; 2017-09-27)
DX: M54.42 Lumbago with sciatica, left side (principal); E11.9 Type 2 diabetes mellitus without complications; G40.909 Epilepsy, unspecified, not intractable, without status epilepticus; M06.9 Rheumatoid arthritis, unspecified; M32.9 Systemic lupus erythematosus, unspecified; Z86.2 Personal history of diseases of the blood and blood-forming organs and certain disorders involving the immune mechanism; Z90.49 Acquired absence of other specified parts of digestive tract
CPT/HCPCS: 84703; 96372; 99282-25

== ENCOUNTER 2018-03-28 11:32 | Emergency (ER) | payer OTHER ==
[2018-03-28 12:25] VITALS: BP 130/62; PULSE 58; TEMP 98; BMI 32.3
--- NOTE | 2018-03-28 13:45 | PDOC ---
History of Present Illness - General Chief Complaint: Chronic pain Stated Complaint: PAIN LOWER RT BACK Time Seen by Provider: 03/28/18 13:07 - History of Present Illness Initial Comments: 27-year-old female since for evaluation of atraumatic onset of right-sided rib pain 5 days. She does have a history of multiple spinal surgeries and a spinal cord stimulator. 03/28/18 13:40 Past History - Past Medical History Allergies/Adverse Reactions: Allergies Allergy/AdvReac Type Severity Reaction Status Date / Time No Known Allergies Allergy Verified 03/28/18 12:21 Home Medications: Ambulatory Orders Esomeprazole Magnesium [Nexium 24Hr] 40 mg PO DAILY 02/24/17 Fluoxetine HCl [Prozac] 50 mg PO DAILY 02/24/17 Folic Acid 1 mg PO DAILY 02/24/17 Aripiprazole [Abilify] 10 mg PO HS 08/05/17 Gabapentin 300 mg PO DAILY 08/05/17 Zolpidem Tartrate [Ambien] 10 mg PO HS 08/05/17 Naproxen 500 mg PO BID PRN #30 tablet 09/20/17 Cyclobenzaprine HCl [Flexeril 10 mg] 10 mg PO BID PRN #10 tablet 09/28/17 Ibuprofen [Motrin -] 600 mg PO TID PRN #20 tablet 09/28/17 Anemia: Yes COPD: No Diabetes: Yes HTN: Yes Seizures: Yes - Surgical History Abdominal Surgery: Yes Cholecystectomy: Yes GI Surgery: Yes (gastric surgery) Neurologic Surgery: Yes (back surg x'3) - Immunization History Immunization Up to Date: Yes - Suicide/Smoking/Psychosocial Hx Smoking History: Never smoked Have you smoked in the past 12 months: No Number of Cigarettes Smoked Daily: 0 Cigars Per Day: 0 Hx Alcohol Use: No Drug/Substance Use Hx: No Substance Use Type: None Hx Substance Use Treatment: No Review of Systems - Review of Systems Musculoskeletal: Yes: See HPI All Other Systems: Reviewed and Negative *Physical Exam - Vital Signs Last Vital Signs Temp Pulse Resp BP Pulse Ox 98 F 58 L 16 130/62 100 03/28/18 12:21 03/28/18 12:21 03/28/18 12:21 03/28/18 12:21 03/28/18 12:21 - Physical Exam Comments: HEAD: NC/AT EYES: Conjuntiva clear NECK: Supple without adenopathy CARDIAC: S1 S2 LUNGS: CTA Full and Equal breath sounds, there is mild right-sided rib pain on ribs 11 and 12 ABDOMEN: Soft NT ND, there is no CVA tenderness MS: Full ROM in all joints without edema NEUROLOGIC: No gross sensory or motor deficits, NVID SKIN: Normal color and temperature no lesions or rashes 03/28/18 13:41 ED Treatment Course - RADIOLOGY Radiology Studies Ordered: Category Date Time Status CHEST PA & LAT [RAD] Stat Radiology 03/28/18 13:20 Completed RIBS RIGHT SIDE [RAD] Stat Radiology 03/28/18 13:20 Completed Medical Decision Making - Medical Decision Making X-rays of the ribs and chest are negative today. This may be an intercostal strain I will have her follow-up with her primary care physician. She is already on a muscle relaxer 03/28/18 13:42 *DC/Admit/Observation/Transfer Diagnosis at time of Disposition: Intercostal muscle strain - Discharge Dispostion Disposition: HOME Condition at time of disposition: Stable Decision to Admit order: No - Referrals Referrals: Dany Patel [Non Staff, Medical] - - Patient Instructions Printed Discharge Instructions: Muscle Strain Additional Instructions: regresar a la kailey de emergencias si los sntomas empeoran o no se resuelven. [place] es muy probable brit tensin de sonali. Hay msculos entre marito costillas que ian puede zuhair lastimado. Cindy un seguimiento con alan ciruga de la [place] vertebral y alan mdico de atencin primaria brit vez 2 baca para brit evaluacin adicional y opciones de tratamiento. Contine tomando marito medicamentos regulares segn lo programado. Print Language: URUGUAYAN - Post Discharge Activity
== END 2018-03-28 13:46 | disposition home or self-care (01) ==
LOC: JERFT 11:32
DX: S29.011A Strain of muscle and tendon of front wall of thorax, initial encounter (principal); D64.9 Anemia, unspecified; I10 Essential (primary) hypertension; E11.9 Type 2 diabetes mellitus without complications; G40.909 Epilepsy, unspecified, not intractable, without status epilepticus; X58.XXXA Exposure to other specified factors, initial encounter; Y93.89 Activity, other specified; Y92.89 Other specified places as the place of occurrence of the external cause; Y99.8 Other external cause status
CPT/HCPCS: 71046-TC-FY; 71101-TC-RT-FY; 99281-25

== ENCOUNTER 2018-04-01 21:39 | Emergency (ER) | payer OTHER ==
[2018-04-01 21:42] VITALS: BP 118/51; PULSE 60; TEMP 98.1; BMI 32.3
--- NOTE | 2018-04-01 21:55 | PDOC ---
History of Present Illness - General Chief Complaint: Back Pain Stated Complaint: BACK PAIN Time Seen by Provider: 04/01/18 21:54 History Source: Patient - History of Present Illness Initial Comments: 04/01/18 22:09 Lines Tender [id number] Chief complaint: Back pain Patient is a 27-year-old female with history of lupus, rheumatoid arthritis, previous lumbar surgeries, who had a stimulator placed and thoracic spine in January who was seen here 3 days ago for mid back pain. Patient returns tonight because pain is worse. No fever no shortness of breath, not on contraceptives, no leg swelling or chest pain. GENERAL/CONSTITUTIONAL: No fever, weakness. dizziness HEAD, EYES, EARS, NOSE AND THROAT: No change in vision. No ear pain or discharge. No sore throat. CARDIOVASCULAR: No chest pain RESPIRATORY: No shortness of breath or cough GASTROINTESTINAL: No pain, nausea, vomiting, diarrhea or constipation GENITOURINARY: No dysuria MUSCULOSKELETAL: No neck +back pain SKIN: No rash NEUROLOGIC: No headache, vertigo, loss of consciousness, or loss of sensation. GENERAL: The patient is awake, alert, and fully oriented, in no acute distress. HEAD: Normal with no signs of trauma. EYES: Pupils equal, round and reactive to light, sclera anicteric, conjunctiva clear. ENT: pharynx: no erythema, no exudate, uvula midline NECK: supple CHEST: clear, nontender, rr ABD: soft, nontender BACK: Tenderness midline thoracic to the right extending down to the SI area on the right back EXTREMITIES: Normal range of motion, no edema. Strength 5 out of 5 bilaterally upper and lower extremities, neurovascular intact NEUROLOGICAL: Normal speech, normal gait. SKIN: Warm, Dry Past History - Past Medical History Allergies/Adverse Reactions: Allergies Allergy/AdvReac Type Severity Reaction Status Date / Time No Known Allergies Allergy Verified 04/01/18 21:42 Home Medications: Ambulatory Orders Esomeprazole Magnesium [Nexium 24Hr] 40 mg PO DAILY 02/24/17 Fluoxetine HCl [Prozac] 50 mg PO DAILY 02/24/17 Aripiprazole [Abilify] 10 mg PO HS 08/05/17 Gabapentin 300 mg PO DAILY 08/05/17 Zolpidem Tartrate [Ambien] 10 mg PO HS 08/05/17 Anemia: Yes COPD: No Diabetes: Yes HTN: Yes Seizures: Yes - Surgical History Abdominal Surgery: Yes Cholecystectomy: Yes GI Surgery: Yes (gastric surgery) Neurologic Surgery: Yes (back surg x'3) - Immunization History Immunization Up to Date: Yes - Suicide/Smoking/Psychosocial Hx Smoking History: Never smoked Have you smoked in the past 12 months: No Number of Cigarettes Smoked Daily: 0 Cigars Per Day: 0 Hx Alcohol Use: No Drug/Substance Use Hx: No Substance Use Type: None Hx Substance Use Treatment: No *Physical Exam - Vital Signs Last Vital Signs Temp Pulse Resp BP Pulse Ox 98.1 F 60 18 118/51 L 100 04/01/18 21:39 04/01/18 21:39 04/01/18 21:39 04/01/18 21:39 04/01/18 21:39 Medical Decision Making - Medical Decision Making 04/01/18 22:12 27-year-old female with previous back surgeries, spinal stimulator is having worsening mid and lower back pain, has not been on narcotic since she had surgery in January, no fever, shortness of breath, chest pain, not on oral contraceptives. Patient does have history of rheumatoid arthritis and lupus. Patient in significant pain. pt has no numbness, saddle anaethesia or incontinence. We'll give patient 2 Percocet, and sign her out to leilani quiñones for further evaluation used interpeter phone but pt mostly answered in andorran *DC/Admit/Observation/Transfer Diagnosis at time of Disposition: Back pain Qualifiers: Back pain location: back pain in unspecified location Chronicity: unspecified Back pain laterality: unspecified Qualified Code(s): M54.9 - Dorsalgia, unspecified - Referrals - Patient Instructions - Post Discharge Activity
--- NOTE | 2018-04-01 23:39 | PDOC ---
History of Present Illness - General Chief Complaint: Back Pain Stated Complaint: BACK PAIN Time Seen by Provider: 04/01/18 21:54 History Source: Patient Exam Limitations: No Limitations - History of Present Illness Initial Comments: 04/02/18 01:29 27-year-old female presents to the emergency department complaining of chronic low back pain. Patient states she's had numerous microlumbar discectomy and has recently had a lumbar nerve stimulator put in on January 2018. Patient states pain is described as 8/10 pressure nonradiating intermittent discomfort without bladder or bowel dysfunction, nausea/vomiting, fever/chills, headache, dizziness , lightheadedness, neck stiffness pain, chest pain, shortness of breath, abdominal pains, flank pains, urinary symptoms: Frequency/urgency/hesitancy, extremity numbness or tingling sensation. Patient states pain is exacerbated on certain movements and alleviated at rest while leaning on either her right upper left side. Patient states she's had this chronic low back pain usually is alleviated with Percocet/ Past History - Past Medical History Allergies/Adverse Reactions: Allergies Allergy/AdvReac Type Severity Reaction Status Date / Time No Known Allergies Allergy Verified 04/01/18 21:42 Home Medications: Ambulatory Orders Esomeprazole Magnesium [Nexium 24Hr] 40 mg PO DAILY 02/24/17 Fluoxetine HCl [Prozac] 50 mg PO DAILY 02/24/17 Aripiprazole [Abilify] 10 mg PO HS 08/05/17 Gabapentin 300 mg PO DAILY 08/05/17 Zolpidem Tartrate [Ambien] 10 mg PO HS 08/05/17 Anemia: Yes COPD: No Diabetes: Yes HTN: Yes Seizures: Yes - Surgical History Abdominal Surgery: Yes Cholecystectomy: Yes GI Surgery: Yes (gastric surgery) Neurologic Surgery: Yes (back surg x'3) - Immunization History Immunization Up to Date: Yes - Suicide/Smoking/Psychosocial Hx Smoking History: Never smoked Have you smoked in the past 12 months: No Number of Cigarettes Smoked Daily: 0 Cigars Per Day: 0 Information on smoking cessation initiated: No Hx Alcohol Use: No Drug/Substance Use Hx: No Substance Use Type: None Hx Substance Use Treatment: No Review of Systems - Review of Systems Able to Perform ROS?: Yes Comments:: 04/02/18 01:29 CONSTITUTIONAL: Absent: fever, chills, diaphoresis, generalized weakness, malaise, loss of appetite HEENT: Absent: rhinorrhea, nasal congestion, throat pain, throat swelling, difficulty swallowing, mouth swelling, ear pain, eye pain, visual Changes CARDIOVASCULAR: Absent: chest pain, loss of consciousness, palpitations, irregular heart rate, peripheral edema RESPIRATORY: Absent: cough, shortness of breath, dyspnea with exertion, orthopnea, wheezing, stridor, hemoptysis GASTROINTESTINAL: Absent: abdominal pain, abdominal distension, nausea, vomiting, diarrhea, constipation, melena, hematochezia GENITOURINARY: Absent: dysuria, frequency, urgency, hesitancy, hematuria, flank pain, genital pain MUSCULOSKELETAL: Absent: myalgia, arthralgia, joint swelling SKIN: Absent: rash, itching, pallor HEMATOLOGIC/IMMUNOLOGIC: Absent: easy bleeding, easy bruising, lymphadenopathy, frequent infections ENDOCRINE: Absent: unexplained weight gain, unexplained weight loss, heat intolerance, cold intolerance NEUROLOGIC: Absent: headache, focal weakness or paresthesias, dizziness, unsteady gait, seizure, mental status changes, bladder or bowel incontinence PSYCHIATRIC: Absent: anxiety, depression, suicidal or homicidal ideation, hallucinations. Is the patient limited Moroccan proficient: No *Physical Exam - Vital Signs Last Vital Signs Temp Pulse Resp BP Pulse Ox 98.1 F 60 18 118/51 L 100 04/01/18 21:39 04/01/18 21:39 04/01/18 21:39 04/01/18 21:39 04/01/18 21:39 - Physical Exam Comments: 04/02/18 01:29 GENERAL: Well developed, well nourished. Awake and alert. No acute distress. HEENT: Normocephalic, atraumatic. PERRLA, EOMI. No conjunctival pallor. Sclera are non- icteric. Moist mucous membranes. Oropharynx is clear. NECK: Supple. Full ROM. No JVD. Carotid pulses 2+ and symmetric, without bruits. No thyromegaly. No lymphadenopathy. CARDIOVASCULAR: Regular rate and rhythm. No murmurs, rubs, or gallops. Distal pulses are 2+ and symmetric. PULMONARY: No evidence of respiratory distress. Lungs clear to auscultation bilaterally. No wheezing, rales or rhonchi. ABDOMINAL: Soft. Non-tender. Non-distended. No rebound or guarding. No organomegaly. Normoactive bowel sounds. MUSCULOSKELETAL Normal range of motion at all joints. No bony deformities or tenderness. No CVA tenderness. EXTREMITIES: No cyanosis. No clubbing. No edema. No calf tenderness. SKIN: Warm and dry. Normal capillary refill. No rashes. No jaundice. NEUROLOGICAL: Alert, awake, appropriate. Cranial nerves 2-12 intact. No deficits to light touch and temperature in face, upper extremities and lower extremities. No motor deficits in the in face, upper extremities and lower extremities. Normoreflexic in the upper and lower extremities. Normal speech. Toes are down- going bilaterally. Gait is normal without ataxia. PSYCHIATRIC: Cooperative. Good eye contact. Appropriate mood and affect. ED Treatment Course - Medications Given in the ED: ED Medications Discontinued Medications Generic Name Dose Route Start Last Admin Trade Name Freq PRN Reason Stop Dose Admin Oxycodone/Acetaminophen 2 combo 04/01/18 22:09 04/01/18 22:13 Percocet 5/325 - PO 04/01/18 22:10 2 combo ONCE ONE Administration *DC/Admit/Observation/Transfer Diagnosis at time of Disposition: Back pain Qualifiers: Back pain location: back pain in unspecified location Chronicity: unspecified Back pain laterality: unspecified Qualified Code(s): M54.9 - Dorsalgia, unspecified - Discharge Dispostion Disposition: HOME Condition at time of disposition: Stable Decision to Admit order: No - Referrals Referrals: Andrew Mcneill MD [Staff Physician] - - Patient Instructions Printed Discharge Instructions: Managing Chronic Low Back Pain, DI for Low Back Pain Additional Instructions: Follow up with your physician/surgeon regarding your chronic low back pain Return to the ER for severe/persistent/worsening pain, bladder or bowel dysfunction. Seguimiento con alan mdico/cirujano con respecto a alan dolor lumbar crnico Vuelva a la kailey de emergencias para obtener dolor trinity/persistente/ empeoramiento, disfuncin vesical o intestinal. Print Language: KYRGYZ - Post Discharge Activity
== END 2018-04-02 | disposition home or self-care (01) ==
LOC: JERFT 21:39 → JER 21:39
DX: M54.89 Other dorsalgia (principal); M06.9 Rheumatoid arthritis, unspecified; Z87.39 Personal history of other diseases of the musculoskeletal system and connective tissue; I10 Essential (primary) hypertension; E11.9 Type 2 diabetes mellitus without complications; G40.909 Epilepsy, unspecified, not intractable, without status epilepticus; Z96.89 Presence of other specified functional implants
CPT/HCPCS: 99282-25

== ENCOUNTER 2018-09-23 20:04 | Emergency (ER) | payer OTHER ==
[2018-09-23 20:19] VITALS: BMI 29.0
--- NOTE | 2018-09-23 21:03 | PDOC ---
History of Present Illness - General Chief Complaint: Pain, Acute Stated Complaint: LWR BACK PAIN/urinary/fecal incontinence Time Seen by Provider: 09/23/18 20:39 History Source: Patient - History of Present Illness Occurred: reports: other Severity: reports: severe Pain Location: reports: back Past History - Past Medical History Allergies/Adverse Reactions: Allergies Allergy/AdvReac Type Severity Reaction Status Date / Time No Known Allergies Allergy Verified 09/23/18 20:19 Home Medications: Ambulatory Orders Esomeprazole Magnesium [Nexium 24Hr] 40 mg PO DAILY 02/24/17 Fluoxetine HCl [Prozac] 50 mg PO DAILY 02/24/17 Aripiprazole [Abilify] 10 mg PO HS 08/05/17 Gabapentin 300 mg PO DAILY 08/05/17 Zolpidem Tartrate [Ambien] 10 mg PO HS 08/05/17 Anemia: Yes COPD: No Diabetes: Yes HTN: Yes Seizures: Yes - Surgical History Abdominal Surgery: Yes Cholecystectomy: Yes GI Surgery: Yes (gastric surgery) Neurologic Surgery: Yes (back surg x2017) - Immunization History Immunization Up to Date: Yes - Suicide/Smoking/Psychosocial Hx Smoking History: Unknown if ever smoked Have you smoked in the past 12 months: No Number of Cigarettes Smoked Daily: 0 Cigars Per Day: 0 Information on smoking cessation initiated: No Hx Alcohol Use: No Drug/Substance Use Hx: No Substance Use Type: None Hx Substance Use Treatment: No Review of Systems - Review of Systems Constitutional: No: Chills, Fever ABD/GI: No: Nausea, Vomiting, Abdominal cramping : No: Burning, Dysuria, Flank Pain, Hematuria Neurological: No: Numbness, Tingling, Weakness *Physical Exam - Vital Signs Last Vital Signs Temp Pulse Resp BP Pulse Ox 98.0 F 105 H 16 140/79 100 09/23/18 20:17 09/23/18 20:17 09/23/18 20:17 09/23/18 20:17 09/23/18 20:17 - Physical Exam General Appearance: Yes: Appropriately Dressed. No: Apparent Distress HEENT: positive: Normal Voice Neck: positive: Supple Respiratory/Chest: negative: Respiratory Distress Gastrointestinal/Abdominal: positive: Soft. negative: Tender Musculoskeletal: positive: Vertebral Tenderness (to mid lower back). negative: CVA Tenderness Integumentary: positive: Dry, Warm Neurologic: positive: Fully Oriented, Alert, Normal Mood/Affect, Motor Strength 5/5, Other (anal tone intact, sensation intact to groin, LE strength 5/5 b/l, able to bear weight) Moderate Sedation - Procedure Monitoring Vital Signs: Procedure Monitoring Vital Signs Temperature 98.0 F 09/23/18 20:17 Pulse Rate 105 H 09/23/18 20:17 Respiratory Rate 16 09/23/18 20:17 Blood Pressure 140/79 09/23/18 20:17 O2 Sat by Pulse Oximetry (%) 100 09/23/18 20:17 ED Treatment Course - LABORATORY CBC & Chemistry Diagram: 09/23/18 21:43 09/23/18 21:43 Medical Decision Making - Medical Decision Making 09/23/18 20:52 28 yo F, lupus, RA, previous lumbar surgeries at [facility], last time January 2018, s/p stimulator placed in thoracic spine, ambulates w/ cane, here w/ low back pain. States since her surgery last year, has not had any back pain up until 3 days ago when developed mid lower back pain radiating to L leg, which is not new for patient. Also complaining of urinary incontinence, which patient describes as not feeling the urge to urinate but then notices that she has urinated on herself. This has happened multiple times per pt. Also w/ ? bowel incontinence and saddle anesthesia. No definite LE weakness and still able to bear weight w/ her cane See exam R/o cauda equina Exam remarkable for witnessed urinary incontinence in facility (diaper now in place), anal tone intact w/ no sensory deficit illicited on exam, LE strength 5/ 5 b/l, bearing weight -pain control -steroids -labs -MRI (wont be able to get till the am) 09/24/18 01:12 Labs unremarkable. Ua/preg pending. Will contact in-pt team to arrange admission to OBs given no MRI till am. Consult placed to Dr Hardin of neuro 09/24/18 03:28 Admitting team refusing to admit pt pending ED d/w neuro though aware that given time, m/l will not hear back from neuro till the am. 09/24/18 04:04 Case d/w Dr Mcneill of NS at this time who recommends transferring pt out and not further delaying MRI. Dose of decadron given to pt. Will call transfer center at [facility] 09/24/18 04:07 Case d/w Dr Vitale of NS at [facility] and pt accepted as of 4am. Case also d/w Dr Velasco in the ER. Transfer center to contact me with ETA and to get nursing report. Face sheet faxed to facility *DC/Admit/Observation/Transfer Diagnosis at time of Disposition: Back pain Qualifiers: Back pain location: low back pain Chronicity: acute Back pain laterality: unspecified Sciatica presence: unspecified whether sciatica present Qualified Code(s): M54.5 - Low back pain Urinary incontinence Qualifiers: Urinary Incontinence type: unspecified incontinence Qualified Code(s): R32 - Unspecified urinary incontinence - Discharge Dispostion Disposition: TRANSFER ACUTE CARE/OTHER HOSP Condition at time of disposition: Fair Decision to Admit order: Yes - Referrals - Patient Instructions - Post Discharge Activity
[2018-09-23] MEDS ORDERED: morphine CARPU-JECT 4 MG/1 ML DISP.SYRIN IVPUSH ONE (21:09)
[2018-09-23] MEDS ORDERED: morphine SULFATE 4 MG/ML VIAL ONE (21:34)
[2018-09-23 21:53] LABS: BASO % 0.5 % (0-2.0); HEMATOCRIT 35.7 % (32.4-45.2); HEMOGLOBIN 12.1 GM/dL (10.7-15.3); LYMPH % 26.7 % (8-40); MCH 30.2 pg (25.7-33.7); MCHC 33.9 g/dl (32.0-36.0); MEAN CELL VOLUME 89.1 fl (80-96); MEAN PLT VOLUME 7.6 fl (7.5-11.1); MONO % 6.3 % (3.8-10.2); NEUT % 64.5 % (42.8-82.8); PLATELET COUNT 429 K/MM3 (134-434); RDW 13.4 % (11.6-15.6); WHITE BLOOD COUNT 13.3 K/mm3 (4.0-10.0)
[2018-09-23 22:19] LABS: ALBUMIN 4.2 g/dl (3.4-5.0); ALK PHOS 82 U/L (45-117); ANION GAP 6 MMOL/L (8-16); BILIRUBIN,TOTAL 0.3 mg/dL (0.2-1); BLOOD UREA NITROGEN 9 mg/dL (7-18); CALCIUM 9.1 mg/dL (8.5-10.1); CHLORIDE 106 mmol/L (98-107); CO2 26 mmol/L (21-32); CREATININE 0.6 mg/dL (0.55-1.3); GLUCOSE,RANDOM 87 mg/dL (74-106); POTASSIUM 4.3 mmol/L (3.5-5.1); SGOT/AST 23 U/L (15-37); SGPT/ALT 39 U/L (13-61); SODIUM 138 mmol/L (136-145); TOT PROT 8.1 g/dl (6.4-8.2)
[2018-09-24 03:42] LABS: HCG,QUALITATIVE URINE Negative
[2018-09-24 03:44] LABS: EPI CELLS 0.5 /HPF (0-5); URINE APPEARANCE CLEAR; URINE BACTERIA 1179.324 /hpf (NEGATIVE); URINE BILIRUBIN NEGATIVE (<2.0 mg/dL); URINE COLOR YELLOW; URINE GLUCOSE (UA) NEGATIVE (NEGATIVE); URINE KETONE TRACE (NEGATIVE); URINE LEUK ESTERASE 2+ (NEGATIVE); URINE NITRITE NEGATIVE (NEGATIVE); URINE PROTEIN NEGATIVE (NEGATIVE); URINE RBC 9 /hpf (0-4); URINE UROBILINOGEN 0.2 mg/dL (0.2-1.0); URINE WBC 35 /hpf (0-5)
[2018-09-24] MEDS ORDERED: DEXAMETHASONE SOD PHOSPHATE 4 MG/1 ML VIAL IVPUSH ONE ×2 (04:04→04:20)
[2018-09-24] MEDS ORDERED: DEXAMETHASONE SOD PHOSPHATE 4 MG/1 ML VIAL ONE (04:08)
[2018-09-24] MEDS ORDERED: morphine CARPU-JECT 4 MG/1 ML DISP.SYRIN IVPUSH ONE (04:20)
[2018-09-24] MEDS ORDERED: morphine SULFATE 4 MG/ML VIAL ONE (04:24)
[2018-09-24] MEDS ORDERED: DEXAMETHASONE SOD PHOSPHATE 10 MG/1 ML VIAL ONE (04:24)
[2018-09-24 04:50] VITALS: BP 119/63; PULSE 81; TEMP 98.5
[2018-09-24 04:54] LABS: HYALINE CASTS 0-3 /hpf (0-8)
== END 2018-09-24 05:15 | disposition short-term general hospital (02) ==
LOC: JER 20:04
PROC: 3E0333Z Introduction of Anti-inflammatory into Peripheral Vein, Percutaneous Approach (ICD-10-PCS; principal; 2018-09-23)
PROC: 3E033NZ Introduction of Analgesics, Hypnotics, Sedatives into Peripheral Vein, Percutaneous Approach (ICD-10-PCS; 2018-09-23)
DX: M54.5 Low back pain (principal); R32 Unspecified urinary incontinence; I10 Essential (primary) hypertension; E11.9 Type 2 diabetes mellitus without complications; Z86.69 Personal history of other diseases of the nervous system and sense organs; Z96.89 Presence of other specified functional implants; Z87.39 Personal history of other diseases of the musculoskeletal system and connective tissue; Z99.89 Dependence on other enabling machines and devices
CPT/HCPCS: 36415; 80053; 81003; 84703; 85025; 86850; 86900; 86901; 96374; 96375; 96376; 99283-25

== ENCOUNTER 2019-01-26 16:50 | Emergency (ER) | payer OTHER ==
[2019-01-26 17:03] VITALS: BP 135/65; PULSE 79; TEMP 98.4; BMI 34.4
--- NOTE | 2019-01-26 17:05 | PDOC ---
Rapid Medical Evaluation Time Seen by Provider: 01/26/19 17:01 Medical Evaluation: Allergies Allergy/AdvReac Type Severity Reaction Status Date / Time No Known Allergies Allergy Verified 09/23/18 20:19 01/26/19 17:01 I have performed a brief in-person evaluation of this patient. The patient presents with a chief complaint of: Diffuse low back pain (L>R) which started today. No fall./trauma/injury. H/o 4 back surgeries (last one 1 yr ago). No urinary symptoms. No numbness/tingling, no saddle paresthesias. This does not feel like a lupus flare. Pt w/ h/o arthritis, fibromyalgia, lupus, herniated disc Pertinent physical exam findings: Pt in no apparent distress. I have ordered the following: UCG The patient will proceed to the ED for further evaluation. 01/26/19 17:04 Discharge Disposition - Diagnosis Back pain Qualifiers: Back pain location: low back pain Chronicity: acute Back pain laterality: left Sciatica presence: unspecified whether sciatica present Qualified Code(s): M54.5 - Low back pain - Referrals - Patient Instructions - Post Discharge Activity
[2019-01-26] MEDS ORDERED: KETOROLAC TROMETHAMINE 30 MG/1 ML VIAL IM ONE (17:36)
--- NOTE | 2019-01-26 17:42 | PDOC ---
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 Patient had a back stimulator placed. She is followed for her rheumatoid arthritis and back at [facility] surgery, last seen there 3 months ago. Patient had recently been in [facility], was transferred to [facility] for back pain and incontinence, patient did not have cauda equina, patient states she was sent for therapy and got better up until yesterday. Patient is also complaining of some decreased sensation to the left leg but no incontinence and no saddle anesthesia. Patient states she started taking her Naprosyn and gabapentin today. No fever and otherwise feels well. Patient points to the sacral area of the back across the back at that level to show where the pain is GENERAL/CONSTITUTIONAL: No fever, weakness. dizziness HEAD, EYES, EARS, NOSE AND THROAT: No change in vision. No ear pain or discharge. No sore throat. CARDIOVASCULAR: No chest pain RESPIRATORY: No shortness of breath or cough GASTROINTESTINAL: No pain, nausea, vomiting, diarrhea or constipation GENITOURINARY: No dysuria MUSCULOSKELETAL: No neck +back pain SKIN: No rash NEUROLOGIC: No headache, vertigo, loss of consciousness, or loss of sensation. GENERAL: The patient is awake, alert, and fully oriented, in no acute distress. HEAD: Normal with no signs of trauma. EYES: Pupils equal, round and reactive to light, sclera anicteric, conjunctiva clear. ENT: pharynx: no erythema, no exudate, uvula midline NECK: supple CHEST: clear, nontender, rr ABD: soft, nontender BACK: no tenderness or signs of injury EXTREMITIES: Normal range of motion, no edema. Strength 5 out of 5 upper and lower extremities, some decreased sensation to the left lower extremity NEUROLOGICAL: Normal speech. Ambulatory with cane,Cranial nerves II through XII grossly intact, no gross focal abnormalities SKIN: Warm, Dry 01/26/19 17:45 Past History - Past Medical History Allergies/Adverse Reactions: Allergies Allergy/AdvReac Type Severity Reaction Status Date / Time No Known Allergies Allergy Verified 01/26/19 17:02 Home Medications: Ambulatory Orders Esomeprazole Magnesium [Nexium 24Hr] 40 mg PO DAILY 02/24/17 Fluoxetine HCl [Prozac] 50 mg PO DAILY 02/24/17 Aripiprazole [Abilify] 10 mg PO HS 08/05/17 Gabapentin 300 mg PO DAILY 08/05/17 Zolpidem Tartrate [Ambien] 10 mg PO HS 08/05/17 Oxycodone HCl/Acetaminophen [Percocet 5-325 mg Tablet] 1 tab PO Q4H #20 tablet MDD 6 01/26/19 Anemia: Yes COPD: No Diabetes: Yes HTN: Yes Seizures: Yes Other medical history: LUPUS, FIBROMYALGIA, HERNIATED DISCS - Surgical History Abdominal Surgery: Yes Cholecystectomy: Yes GI Surgery: Yes (gastric surgery) Neurologic Surgery: Yes (back surg x2017) - Immunization History Immunization Up to Date: Yes - Suicide/Smoking/Psychosocial Hx Smoking History: Current every day smoker Have you smoked in the past 12 months: No Number of Cigarettes Smoked Daily: 0 Cigars Per Day: 0 Information on smoking cessation initiated: No Hx Alcohol Use: No Drug/Substance Use Hx: No Substance Use Type: None Hx Substance Use Treatment: No *Physical Exam - Vital Signs Last Vital Signs Temp Pulse Resp BP Pulse Ox 98.4 F 79 16 135/65 100 01/26/19 16:59 01/26/19 16:59 01/26/19 16:59 01/26/19 16:59 01/26/19 16:59 Medical Decision Making - Medical Decision Making 01/26/19 17:40 28-year-old female, overweight with history of chronic back problems, prior surgeries, rheumatoid arthritis, lupus and psychiatric issues who came in for 1 day of posterior sacral pain. Patient also with some decreased sensation to the left leg, no incontinence or saddle anesthesia. Patient is ambulatory with cane. Started Naprosyn and gabapentin today. Patient does not require any imaging, will manage pain. Patient has doctors to follow up with on Tuesday will be given strict return instructions. Last MRI was in September of this year Discussed issues, findings, results, applicable medications and treatments and follow-up. All these were understood and all questions were answered *DC/Admit/Observation/Transfer Diagnosis at time of Disposition: Back pain Qualifiers: Back pain location: low back pain Chronicity: acute Back pain laterality: left Sciatica presence: unspecified whether sciatica present Qualified Code(s): M54.5 - Low back pain - Discharge Dispostion Disposition: HOME Condition at time of disposition: Stable Decision to Admit order: No - Prescriptions Prescriptions: Oxycodone HCl/Acetaminophen [Percocet 5-325 mg Tablet] 1 tab PO Q4H #20 tablet MDD 6 - Referrals - Patient Instructions Printed Discharge Instructions: DI for Low Back Pain Additional Instructions: No heavy lifting or bending Apply ice to the area 20 minutes every 2 hours for the next 2 days Continue taking Naprosyn and gabapentin for pain. If still in pain he can also take Percocet one tablet every 4 hours. Return to the nearest ER if numbness, weakness, severe pain, problems with urinating or having bowel movements. Call your spine doctor today for an appointment for further evaluation - Post Discharge Activity
[2019-01-26] MEDS ORDERED: KETOROLAC TROMETHAMINE 30 MG/1 ML VIAL ONE (17:57)
== END 2019-01-26 18:06 | disposition home or self-care (01) ==
LOC: JERFT 16:50
PROC: 3E0233Z Introduction of Anti-inflammatory into Muscle, Percutaneous Approach (ICD-10-PCS; principal; 2019-01-26)
DX: M54.5 Low back pain (principal); M79.7 Fibromyalgia; M06.9 Rheumatoid arthritis, unspecified; M32.9 Systemic lupus erythematosus, unspecified; Z96.89 Presence of other specified functional implants
CPT/HCPCS: 84703; 96372; 99281-25

== ENCOUNTER 2019-02-09 18:19 | Inpatient (IN) | payer OTHER ==
--- NOTE | 2019-02-09 18:23 | PDOC ---
Rapid Medical Evaluation Time Seen by Provider: 02/09/19 18:21 Medical Evaluation: Allergies Allergy/AdvReac Type Severity Reaction Status Date / Time No Known Allergies Allergy Verified 01/26/19 17:02 02/09/19 18:21 I have performed a brief exam on this patient. CC: atraumatic lower back pain. Reports Fecal incontinence PE: ambulatory. No sensory deficits. rectal deferred. Orders: urine, labs- imaging deferred until rectal exam performed. The patient will proceed to the ER for further evaluation. Discharge Disposition - Diagnosis Back pain - Referrals - Patient Instructions - Post Discharge Activity
[2019-02-09 18:24] VITALS: BMI 38.4
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
[2019-02-09] MEDS ORDERED: METHOCARBAMOL 500 MG TABLET PO ONE (20:35)
[2019-02-09 21:00] LABS: BASO % 0.9 % (0-2.0); EOS % 1.1 % (0-4.5); HEMATOCRIT 32.9 % (32.4-45.2); HEMOGLOBIN 10.9 GM/dL (10.7-15.3); LYMPH % 39.4 % (8-40); MCH 29.4 pg (25.7-33.7); MONO % 8.4 % (3.8-10.2); NEUT % 50.2 % (42.8-82.8); PLATELET COUNT 458 K/MM3 (134-434); RDW 13.7 % (11.6-15.6); WHITE BLOOD COUNT 10.5 K/mm3 (4.0-10.0)
[2019-02-09] MEDS ORDERED: METHOCARBAMOL 500 MG TABLET ONE (21:16)
[2019-02-09 21:23] LABS: ALBUMIN 3.8 g/dl (3.4-5.0); BILIRUBIN,TOTAL 0.2 mg/dL (0.2-1); BLOOD UREA NITROGEN 10.8 mg/dL (7-18); CALCIUM 8.9 mg/dL (8.5-10.1); CREATININE 0.6 mg/dL (0.55-1.3); POTASSIUM 4.2 mmol/L (3.5-5.1); TOT PROT 7.2 g/dl (6.4-8.2)
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
[2019-02-09] MEDS ORDERED: morphine CARPU-JECT 4 MG/1 ML DISP.SYRIN IVPUSH ONE (22:17)
[2019-02-09] MEDS ORDERED: morphine SULFATE 4 MG/ML VIAL ONE (22:45)
[2019-02-09] MEDS ORDERED: HYDROmorphone HCL CARPU-JECT 2 MG/1 ML DISP.SYRIN IVPUSH ONE (22:46)
[2019-02-10] MEDS ORDERED: HYDROmorphone HCl 2 MG/ML VIAL ONE (00:29)
[2019-02-10 01:02] LABS: HYALINE CASTS 18 /lpf (0-8); PH,URINE 5.5 (5.0-8.0); URINE APPEARANCE CLEAR; URINE BACTERIA 5.2 /hpf (NEGATIVE); URINE BILIRUBIN NEGATIVE (NEGATIVE); URINE COLOR YELLOW; URINE GLUCOSE (UA) NEGATIVE (NEGATIVE); URINE KETONE NEGATIVE (NEGATIVE); URINE LEUK ESTERASE NEGATIVE (NEGATIVE); URINE NITRITE NEGATIVE (NEGATIVE); URINE PROTEIN NEGATIVE (NEGATIVE); URINE RBC 9 /hpf (0-4); URINE UROBILINOGEN 0.2 mg/dL (0.2-1.0); URINE WBC 2 /hpf (0-5)
[2019-02-10] MEDS ORDERED: SODIUM CHLORIDE 500 ML IV STA (02:06)
[2019-02-10] MEDS ORDERED: DEXAMETHASONE SOD PHOSPHATE 10 MG/1 ML VIAL IVPUSH ONE (03:27)
[2019-02-10] MEDS ORDERED: DEXAMETHASONE SOD PHOSPHATE 4 MG/1 ML VIAL ONE ×2 (03:29→03:33)
--- NOTE | 2019-02-10 03:37 | CONSULT ---
Consultation: REQUESTING PROVIDER: Emergency Department CONSULT REQUEST: We have been asked to medically evaluate this patient for back pain suspicious of red flag alarm signs of radiculopathy HISTORY OF PRESENT ILLNESS: 28 y/o F w PMH DM, lupus, science instructor, fibromyaliga, major depression, and bipolar disorder, and extensive lumbar spinal surgical hx (see below) presenting to the ED w c/o back pain and weakness of the LLE. These symptoms are related to her surgical site and began 1 week ago. She states that the pain was NOT preceded by trauma. She denies NVFD. She denies ADAMES, SOB, and CP. PSH - Stimulator placement at [facility] - Laminectomy - Lumbar fusion - Lumbar fusion revision - c/s (2007) - tubal ligation (2007) REVIEW OF SYSTEMS: CONSTITUTIONAL: Absent: fever, chills, diaphoresis, generalized weakness, malaise, loss of appetite, weight change HEENT: Absent: rhinorrhea, nasal congestion, throat pain, throat swelling, difficulty swallowing, mouth swelling, ear pain, eye pain, visual changes CARDIOVASCULAR: Absent: chest pain, syncope, palpitations, irregular heart rate, lightheadedness , peripheral edema RESPIRATORY: Absent: cough, shortness of breath, dyspnea with exertion, orthopnea, wheezing, stridor, hemoptysis GASTROINTESTINAL: Absent: abdominal pain, abdominal distension, nausea, vomiting, diarrhea, constipation, melena, hematochezia GENITOURINARY: Absent: dysuria, frequency, urgency, hesitancy, hematuria, flank pain, genital pain MUSCULOSKELETAL: Absent: myalgia, arthralgia, joint swelling, back pain, neck pain SKIN: Absent: rash, itching, pallor HEMATOLOGIC/IMMUNOLOGIC: Absent: easy bleeding, easy bruising, lymphadenopathy, frequent infections ENDOCRINE: Absent: unexplained weight gain, unexplained weight loss, heat intolerance, cold intolerance NEUROLOGIC: Absent: headache, focal weakness or paresthesias, dizziness, unsteady gait, seizure, mental status changes, bladder or bowel incontinence PSYCHIATRIC: Absent: anxiety, depression, suicidal or homicidal ideation, hallucinations. PHYSICAL EXAMINATION Vital Signs - 24 hr 02/09/19 02/09/19 02/10/19 18:22 23:30 02:00 Temperature 98.1 F 98.4 F Pulse Rate 97 H Pulse Rate [ 74 78 Left Radial] Respiratory 18 20 20 Rate Blood Pressure 143/81 Blood Pressure 105/59 L 94/50 L [Right Arm] O2 Sat by Pulse 100 99 Oximetry (%) 02/10/19 02:43 Temperature Pulse Rate Pulse Rate [ 72 Left Radial] Respiratory 20 Rate Blood Pressure Blood Pressure 118/64 [Right Arm] O2 Sat by Pulse Oximetry (%) GENERAL: Awake, alert, and fully oriented, and expressively in pain (tearful, laying still in bed) HEAD: Normal with no signs of trauma. EYES: Pupils equal, round and reactive to light, extraocular movements intact, sclera anicteric, conjunctiva clear. No lid lag. EARS, NOSE, THROAT: Ears normal, nares patent, oropharynx clear without exudates. Moist mucous membranes. NECK: Normal range of motion, supple without lymphadenopathy, JVD, or masses. LUNGS: Breath sounds equal, clear to auscultation bilaterally. No wheezes, and no crackles. No accessory muscle use. HEART: Regular rate and rhythm, normal S1 and S2 without murmur, rub or gallop. ABDOMEN: POS STOOL INCONTINENCE. Soft, nontender, not distended, normoactive bowel sounds, no guarding, no rebound, no masses. No hepatomegaly or splenomegaly. MUSCULOSKELETAL: Normal range of motion at all joints. No bony deformities or tenderness. No CVA tenderness. UPPER EXTREMITIES: 2+ pulses, warm, well-perfused. No cyanosis. No clubbing. Cap refill <2 seconds. No peripheral edema. LOWER EXTREMITIES: 2+ pulses, warm, well-perfused. No calf tenderness. No peripheral edema. NEUROLOGICAL: POS LOSS OF SENSATION IN L1-L5, S1+s2 to touch and pain. POS BABINKSI LEFT. Cranial nerves III-XII intact. Normal speech. Normal gait. PSYCHIATRIC: Cooperative. In pain. Tearful. Good eye contact. Appropriate mood and affect. SKIN: Warm, dry, normal turgor, no rashes or lesions noted. Laboratory Results - last 24 hr 02/09/19 02/09/19 02/09/19 20:45 20:45 20:45 WBC 10.5 H RBC 3.70 Hgb 10.9 Hct 32.9 MCV 89.0 MCH 29.4 MCHC 33.0 RDW 13.7 Plt Count 458 H MPV 8.0 Absolute Neuts (auto) 5.3 Neutrophils % 50.2 D Lymphocytes % 39.4 D Monocytes % 8.4 Eosinophils % 1.1 Basophils % 0.9 Nucleated RBC % 0 Sodium 146 H Potassium 4.2 Chloride 110 H Carbon Dioxide 27 Anion Gap 8 BUN 10.8 Creatinine 0.6 Est GFR (CKD-EPI)AfAm 142.76 Est GFR (CKD-EPI)NonAf 123.17 Random Glucose 93 Calcium 8.9 Total Bilirubin 0.2 AST 13 L ALT 26 Alkaline Phosphatase 58 Total Protein 7.2 Albumin 3.8 Serum , Qual Negative Urine Color Urine Appearance Urine pH Ur Specific [place] Urine Protein Urine Glucose (UA) Urine Ketones Urine Blood Urine Nitrite Urine Bilirubin Urine Urobilinogen Ur Leukocyte Esterase Urine WBC (Auto) Urine RBC (Auto) Urine Casts (Auto) U Epithel Cells (Auto) Urine Bacteria (Auto) Urine HCG, Qual 02/10/19 02/10/19 00:30 00:30 WBC RBC Hgb Hct MCV MCH MCHC RDW Plt Count MPV Absolute Neuts (auto) Neutrophils % Lymphocytes % Monocytes % Eosinophils % Basophils % Nucleated RBC % Sodium Potassium Chloride Carbon Dioxide Anion Gap BUN Creatinine Est GFR (CKD-EPI)AfAm Est GFR (CKD-EPI)NonAf Random Glucose Calcium Total Bilirubin AST ALT Alkaline Phosphatase Total Protein Albumin Serum , Qual Urine Color Yellow Urine Appearance Clear Urine pH 5.5 Ur Specific [place] 1.022 Urine Protein Negative Urine Glucose (UA) Negative Urine Ketones Negative Urine Blood 2+ H Urine Nitrite Negative Urine Bilirubin Negative Urine Urobilinogen 0.2 Ur Leukocyte Esterase Negative Urine WBC (Auto) 2 Urine RBC (Auto) 9 Urine Casts (Auto) 18 U Epithel Cells (Auto) 3.0 Urine Bacteria (Auto) 5.2 Urine HCG, Qual Negative ASSESSMENT/PLAN: 28 y/o F with lumbar region and LEFT LE s/p radiculopathic presentation with alarm symptoms of loss of sensation to pain and touch, and fecal incontinence. We recommend further information w MRI imaging modality and would appreciate neurosurgical evaluation/poss intervention. MRI will not be available till 8am and pt is a former [facility] patient. She will be kept stable and transferred to [facility] for further management. Dispo: We will continue to follow the patient. Thank you for this consultative opportunity. Dr. Kaleb Franklin MD Visit type - Emergency Visit Emergency Visit: Yes ED Registration Date: 02/10/19 Care time: The patient presented to the Emergency Department on the above date and was hospitalized for further evaluation of their emergent condition. - New Patient This patient is new to me today: Yes Date on this admission: 02/10/19 - Critical Care Critical Care patient: No ATTENDING PHYSICIAN STATEMENT I saw and evaluated the patient. I reviewed the resident's note and discussed the case with the resident. I agree with the resident's findings and plan as documented. SUBJECTIVE: OBJECTIVE: ASSESSMENT AND PLAN:
[2019-02-10] MEDS ORDERED: FAMOTIDINE 20 MG/50 ML IVPB 20 MG/50 ML MG IVPB ONE ×2 (04:22→05:14)
--- NOTE | 2019-02-10 04:30 | PN ---
Teaching Attending Note Name of Resident: Kaleb Franklin ATTENDING PHYSICIAN STATEMENT I saw and evaluated the patient. I reviewed the resident's note and discussed the case with the resident. I agree with the resident's findings and plan as documented. Seen and examined; please refer to resident note for further historical information. Briefly, patient presents for worsening chronic back pain associated with numbness radiating down the L-leg similar to when she had the inciting injury several years ago. She has a spinal stimulator that grossly was intact with CT; MRI was not available tonight. Nursing service crew supervisor spoke with department. ER resident spoke with neurosurgery who requested CT/MRI to review. We were contacted when MRI was not able to be done; though best efforts were made to get a tech to preform the study, none would be available until 8 AM. Due to the underlying neurosurgical issues with current red-flag symptoms in a young female who was unable to get the needed study done in a timely fashion, we decided to follow her in the ER until MRI trajectory could be better described. As she is not able to get this study done here, ER spoke with nsgy and I am told they decided to transfer which would thusly be appropriate. Initial sgy was done at [facility]. VS, labs, imaging reviewed NAD, AAO, resting in bed RRR s1/2 no mgr LLE 3/5 weakness, RLE 5/5; numbness and parasthesias extending down the lateral leg extending medially. + Pulses. NC AT EOMI PERRLA Prelim CTs reviewed; need MRI to determine if cord impingement. ASSESSMENT AND PLAN: Patient with history of neurosurgical procedure/spinal stimulator implant comes in with LLE pain, numbness, and weakness. # R/O Cauda Equina/Cord Impingement -Due to timing with MRI agree with transfer; deferring surgical intervention, steroids, etc. to subspecialists. # S/P neurosurgical procedure # Obesity (BMI=38) # Lupus hx Full Code
[2019-02-10 05:29] VITALS: BP 102/64; PULSE 61; TEMP 98.6
--- NOTE | 2019-02-12 11:18 | EKG ---
Test Reason : Blood Pressure : / mmHG Vent. Rate : 075 BPM Atrial Rate : 075 BPM P-R Int : 136 ms QRS Dur : 082 ms QT Int : 388 ms P-R-T Axes : -27 050 037 degrees QTc Int : 433 ms NORMAL SINUS RHYTHM BASELINE ARTIFACT WHEN COMPARED WITH ECG OF 24-FEB-2017 20:05, LIKELY NO SIGNIFICANT CHANGES Confirmed by ARTEMIO ORTIZ, CALVIN ([id number]) on 02/12/2019 11:18:11 AM Referred By: Confirmed By:CALVIN ULLOA MD
== END 2019-02-10 05:57 | disposition short-term general hospital (02) | DRG 74 ==
LOC: JER 18:19 → JERBED 02-10 01:55
PROVIDERS: ADMIT Internal Medicine; ATTEND Internal Medicine
DX: G83.4 Cauda equina syndrome (principal); E11.9 Type 2 diabetes mellitus without complications; I10 Essential (primary) hypertension; R56.9 Unspecified convulsions; D64.9 Anemia, unspecified; E66.9 Obesity, unspecified; Z68.38 Body mass index [BMI] 38.0-38.9, adult; M54.9 Dorsalgia, unspecified; R15.9 Full incontinence of feces
CPT/HCPCS: 36415; 72125-TC; 72128-TC; 72131-TC; 80053; 81003; 84703; 85025; 87086; 93005; 93010; 99284-25; J1100

== ENCOUNTER 2020-01-27 12:32 | Emergency (ER) | payer OTHER ==
[2020-01-27 12:38] VITALS: BP 121/77; PULSE 90; TEMP 98; BMI 38.7
[2020-01-27] MEDS ORDERED: KETOROLAC TROMETHAMINE 30 MG/1 ML VIAL IM ONE (13:24)
[2020-01-27] MEDS ORDERED: KETOROLAC TROMETHAMINE 30 MG/1 ML VIAL ONE (13:26)
--- NOTE | 2020-01-27 13:55 | PDOC ---
History of Present Illness - General Chief Complaint: Pain Stated Complaint: RIGHT ARM PAIN Time Seen by Provider: 01/27/20 13:11 History Source: Patient Exam Limitations: No Limitations - History of Present Illness Initial Comments: 01/27/20 13:51 29-year-old female [id number], history of rheumatoid arthritis, fibromyalgia, lupus, chronic low back pain status post 5 surgeries to lumbar spine presents complaining of atraumatic right shoulder pain radiating to right upper extremity since yesterday morning. Denies weakness, numbness, tingling, neck pain, headache, chest pain, shortness of breath, fever, chills or any other complaint. Patient took 1 tablet of ibuprofen 800 mg at 1 AM today with some relief. Patient has follow-up appointment with pharmacy specialist February 12, 2020 and also follows up with a design painter. ROS: as above PE: GENERAL: well-appearing, NAD, obese HEAD: NCAT EYES: Pupils equal, round and reactive to light, sclera anicteric, conjunctiva clear ENT: pharynx: no erythema, no exudate, uvula midline NECK: supple CHEST: nontender RESP: clear, no w/r/r CARDIO: rrr, no m/g/r ABD: +BS, soft, nontender, non distended BACK: no midline spinal ttp, no CVAT EXTREMITIES: Limited range of motion to right shoulder due to pain, no bony tenderness to palpation, positive radial pulse, soft compartments, 5/5 strength and sensation NEUROLOGICAL: Normal speech, normal gait SKIN: Warm, Dry Is this a multiple visit Asthma Patient?: No Past History - Medical History Allergies/Adverse Reactions: Allergies Allergy/AdvReac Type Severity Reaction Status Date / Time No Known Allergies Allergy Verified 01/27/20 12:38 Home Medications: Ambulatory Orders Esomeprazole Magnesium [Nexium 24Hr] 40 mg PO DAILY 02/24/17 Fluoxetine HCl [Prozac] 50 mg PO DAILY 02/24/17 Aripiprazole [Abilify] 10 mg PO HS 08/05/17 Gabapentin 300 mg PO DAILY 08/05/17 Zolpidem Tartrate [Ambien] 10 mg PO HS 08/05/17 Oxycodone HCl/Acetaminophen [Percocet 5-325 mg Tablet] 1 tab PO Q4H #20 tablet MDD 6 01/26/19 Anemia: No COPD: No Diabetes: No HTN: No Seizures: No Other medical history: lower back pain - Surgical History Abdominal Surgery: Yes Cholecystectomy: Yes GI Surgery: Yes (gastric surgery) Neurologic Surgery: Yes (back surg x4) - Immunization History Immunization Up to Date: Yes - Psycho-Social/Smoking History Smoking History: Never smoked Have you smoked in the past 12 months: No Number of Cigarettes Smoked Daily: 0 Cigars Per Day: 0 - Substance Abuse Hx (Audit-C & DAST Scrn) How often the patient has a drink containing alcohol: Never Score: In Men: 4 or > Positive; In Women: 3 or > Positive: 0 Screen Result (Pos requires Nsg. Audit-10AR): Negative *Physical Exam - Vital Signs Last Vital Signs Temp Pulse Resp BP Pulse Ox 98 F 90 18 121/77 98 01/27/20 12:34 01/27/20 12:34 01/27/20 12:34 01/27/20 12:34 01/27/20 12:34 ED Treatment Course - RADIOLOGY Radiology Studies Ordered: Category Date Time Status SHOULDER-RIGHT [RAD] Stat Radiology 01/27/20 13:24 Ordered - Medications Given in the ED: ED Medications Discontinued Medications Generic Name Dose Route Start Last Admin Trade Name Freq PRN Reason Stop Dose Admin Ketorolac Tromethamine 30 mg 01/27/20 13:24 01/27/20 13:31 Toradol Injection - IM 01/27/20 13:25 30 mg ONCE ONE Administration Medical Decision Making - Medical Decision Making 01/27/20 14:32 29-year-old female [id number], history of rheumatoid arthritis, fibromyalgia, lupus, chronic low back pain status post 5 surgeries to lumbar spine presents complaining of atraumatic right shoulder pain radiating to right upper extremity since yesterday morning. Denies weakness, numbness, tingling, neck pain, headache, chest pain, shortness of breath, fever, chills or any other complaint. Patient took 1 tablet of ibuprofen 800 mg at 1 AM today with some relief. Patient has follow-up appointment with pharmacy specialist February 12, 2020 and also follows up with a design painter. Pain likely due to cervical radiculopathy Right shoulder x-ray unremarkable on wet read Slight relief after Toradol 30 mg IM and 1 Percocet tablet Shoulder sling provided Advised patient to arrange her shoulder several times a day to prevent frozen shoulder syndrome Patient has Neurontin at home and was advised to take Neurontin as directed Discharge - Discharge Information Problems reviewed: Yes Clinical Impression/Diagnosis: Cervical radiculopathy Condition: Stable Disposition: HOME - Admission No - Follow up/Referral Referrals: ON STAFF,NOT [Primary Care Provider] - - Patient Discharge Instructions Additional Instructions: Take ibuprofen 600 mg every 6 hours as needed for pain Use shoulder sling for comfort however remove shoulder sling and range shoulder several times a day to prevent frozen shoulder syndrome Take Neurontin as prescribed by your pain management doctor Follow-up with the pharmacy specialist as scheduled February 12, 2020 - Post Discharge Activity
== END 2020-01-27 14:35 | disposition home or self-care (01) ==
LOC: JERFT 12:32
PROC: 3E0233Z Introduction of Anti-inflammatory into Muscle, Percutaneous Approach (ICD-10-PCS; principal; 2020-01-27)
DX: M54.12 Radiculopathy, cervical region (principal)
CPT/HCPCS: 73030-TC-RT-FY; 99284-25

== ENCOUNTER 2020-02-26 18:46 | Emergency (ER) | payer OTHER ==
[2020-02-26] MEDS ORDERED: CYCLOBENZAPRINE HCL 10 MG TABLET (FP) PO ONE (18:53)
[2020-02-26] MEDS ORDERED: KETOROLAC TROMETHAMINE 30 MG/1 ML VIAL IM ONE (18:53)
--- NOTE | 2020-02-26 18:53 | PDOC ---
Rapid Medical Evaluation Time Seen by Provider: 02/26/20 18:51 Medical Evaluation: Allergies Allergy/AdvReac Type Severity Reaction Status Date / Time No Known Allergies Allergy Verified 02/26/20 18:51 02/26/20 18:51 HPI: PMHX RA Fibromyalgia complainig of Left lower back pain x 2 days radiating down her leg. Muliple spinal surgeries PE: TTP over left lumbar paravertebrals A/P: Toradol flexeril Imaging differed to provider Pt to precede to ED for further evaluation and treatment.
[2020-02-26 18:54] VITALS: BP 148/92; PULSE 98; TEMP 98.7; BMI 41.9
[2020-02-26] MEDS ORDERED: KETOROLAC TROMETHAMINE 60 MG/2 ML VIAL IM ONE (19:11)
[2020-02-26] MEDS ORDERED: KETOROLAC TROMETHAMINE 60 MG/2 ML VIAL ONE (19:42)
--- NOTE | 2020-02-26 22:03 | PDOC ---
History of Present Illness - General Chief Complaint: Back Pain Stated Complaint: BACK/LEG PAIN Time Seen by Provider: 02/26/20 18:51 - History of Present Illness Initial Comments: 02/26/20 21:57 29-year-old female with a past medical history of diabetes multiple lumbar spine surgeries and fibromyalgia presents for evaluation of 5 days of left sided lower back pain with posterior lateral left leg radiculopathy. She states today she has been unable to urinate. Past History - Medical History Allergies/Adverse Reactions: Allergies Allergy/AdvReac Type Severity Reaction Status Date / Time No Known Allergies Allergy Verified 02/26/20 18:51 Home Medications: Ambulatory Orders Esomeprazole Magnesium [Nexium 24Hr] 40 mg PO DAILY 02/24/17 Fluoxetine HCl [Prozac] 50 mg PO DAILY 02/24/17 Aripiprazole [Abilify] 10 mg PO HS 08/05/17 Gabapentin 300 mg PO DAILY 08/05/17 Zolpidem Tartrate [Ambien] 10 mg PO HS 08/05/17 Oxycodone HCl/Acetaminophen [Percocet 5-325 mg Tablet] 1 tab PO Q4H #20 tablet MDD 6 01/26/19 Anemia: No COPD: No Diabetes: No HTN: No Seizures: No Other medical history: FIBROMALGIA - Surgical History Abdominal Surgery: Yes Cholecystectomy: Yes GI Surgery: Yes (gastric surgery) Neurologic Surgery: Yes (back surg x4) - Reproductive History Is Patient Now?: No - Immunization History Immunization Up to Date: Yes - Psycho-Social/Smoking History Smoking History: Never smoked Have you smoked in the past 12 months: No Number of Cigarettes Smoked Daily: 0 Cigars Per Day: 0 - Substance Abuse Hx (Audit-C & DAST Scrn) How often the patient has a drink containing alcohol: Never Score: In Men: 4 or > Positive; In Women: 3 or > Positive: 0 Screen Result (Pos requires Nsg. Audit-10AR): Negative In the last yr the pt used illegal drug/Rx for NonMed reason: No Score: Yes response is considered Positive: 0 Screen Result (Positive result requires Nsg. DAST-10): Negative Review of Systems - Review of Systems Constitutional: No: Fever : Yes: See HPI Musculoskeletal: Yes: Back Pain *Physical Exam - Vital Signs Last Vital Signs Temp Pulse Resp BP Pulse Ox 98.7 F 98 H 20 148/92 100 02/26/20 18:51 02/26/20 18:51 02/26/20 18:51 02/26/20 18:51 02/26/20 18:51 - Physical Exam 02/26/20 22:00 Lumbar spine skin color temperature normal range of motion is slightly decreased. No midline tenderness. Moderate bilateral paralumbar musculature spasm and tenderness 5 out of 5 strength bilateral lower extremities without gross sensorimotor deficits thighs and calves are soft and nontender neurovascular intact Rectal examination was done with female nurse in the room tone is normal. ED Treatment Course - RADIOLOGY Radiology Studies Ordered: Category Date Time Status SPINE-LUMBAR SACRAL [RAD] Stat Radiology 02/26/20 20:08 Taken - Medications Given in the ED: ED Medications Discontinued Medications Generic Name Dose Route Start Last Admin Trade Name Freq PRN Reason Stop Dose Admin Cyclobenzaprine HCl 10 mg 02/26/20 18:53 02/26/20 19:38 Flexeril - PO 02/26/20 18:54 10 mg ONCE ONE Administration Ketorolac Tromethamine 30 mg 02/26/20 18:53 02/26/20 19:38 Toradol Injection - IM 02/26/20 18:54 Not Given ONCE ONE Ketorolac Tromethamine 60 mg 02/26/20 19:11 02/26/20 19:38 Toradol Injection - IM 02/26/20 19:12 60 mg ONCE ONE Administration Oxycodone/Acetaminophen 2 combo 02/26/20 20:26 02/26/20 20:30 Percocet 5/325 - PO 02/26/20 20:27 2 combo ONCE ONE Administration Medical Decision Making - Medical Decision Making 02/26/20 22:33 Patient signed out to overnight emergency medicine team Discharge - Discharge Information Problems reviewed: Yes Clinical Impression/Diagnosis: Back pain - Follow up/Referral Referrals: Akhil Higginbotham MD [Primary Care Provider] - - Patient Discharge Instructions - Post Discharge Activity
--- NOTE | 2020-02-26 22:39 | PDOC ---
*Physical Exam - Vital Signs Last Vital Signs Temp Pulse Resp BP Pulse Ox 98.7 F 98 H 20 148/92 100 02/26/20 18:51 02/26/20 18:51 02/26/20 18:51 02/26/20 18:51 02/26/20 18:51 - Physical Exam 02/26/20 22:33 Patient's care endorsed to me by FITZ Rose at the end of his shift. Patient is a 29YOF with h/o DM and lumbar fusion and chronic low back pain who p/w exacerbated chronic low back pain radiating to left lateral LE. Also noting inability to urinate. Pending re-assessment after medication and dispo decision. ED Treatment Course - Medications Given in the ED: ED Medications Discontinued Medications Generic Name Dose Route Start Last Admin Trade Name Freq PRN Reason Stop Dose Admin Cyclobenzaprine HCl 10 mg 02/26/20 18:53 02/26/20 19:38 Flexeril - PO 02/26/20 18:54 10 mg ONCE ONE Administration Ketorolac Tromethamine 30 mg 02/26/20 18:53 02/26/20 19:38 Toradol Injection - IM 02/26/20 18:54 Not Given ONCE ONE Ketorolac Tromethamine 60 mg 02/26/20 19:11 02/26/20 19:38 Toradol Injection - IM 02/26/20 19:12 60 mg ONCE ONE Administration Oxycodone/Acetaminophen 2 combo 02/26/20 20:26 02/26/20 20:30 Percocet 5/325 - PO 02/26/20 20:27 2 combo ONCE ONE Administration Medical Decision Making - Medical Decision Making 02/26/20 23:39 Patient states pain is somewhat improved after medications. She requests Gray, states she has had a Gray before, has had urinary retention before as well as chronic intermittent constipation. She notes this is not significantly different from her baseline. Pending UA (will cath if necessary) to assess for UTI then will decide dispo. 02/27/20 01:17 No acute changes on L spine XR. Hardware noted. The patient has no midline lumbar spinal pain, all is paraspinous, worse on left than right, and palpation of the left sciatic nerve reproduces the chief complaint exactly. There has been no more than 100cc UOP from Gray which was placed at the patient's request. UA is negative. This is more likely dehydration rather than obstruction as the patient does not have significant PVR. She is given IVF, another dose of Toradol, and obaxin. She understands we will not be able to get her exacerbated chronic pain back down to a 0/10 and she is agreeable to managing at home and following up. She notes improved pain after medications. She is appropriate for discharge home with close follow-up with her PCP and pain management provider, whom she saw 3 weeks ago per her report. Return precautions are discussed as per her discharge instructions. She walks out of the department without issue with her cast shell grinder, getting driven home by her . Discharge - Discharge Information Problems reviewed: Yes Clinical Impression/Diagnosis: Back pain Qualifiers: Back pain location: low back pain Chronicity: chronic Back pain laterality: unspecified Sciatica presence: with sciatica Sciatica laterality: sciatica of left side Qualified Code(s): M54.42 - Lumbago with sciatica, left side Condition: Stable Disposition: HOME - Admission No - Follow up/Referral Referrals: Akhil Higginbotham MD [Primary Care Provider] - - Patient Discharge Instructions Patient Printed Discharge Instructions: DI for Back Pain With Sciatica Additional Instructions: You were seen in the ER for an acute flare-up of your chronic back pain. We gave you medications which helped with your pain. We are giving you referral information for one of our neurosurgeons; please follow up with them or with your own neurosurgeon. Please also follow up with your primary care provider in 1-3 days, and discuss changing your pain management regimen so that you can get on top of your chronic back pain before getting to the point where you need to come to the ER. Call their clinic as soon as possible, tell them you were seen in the ER for back pain, and tell them you need an appointment. If you have any new or worsening symptoms please come back to the ER at any time (24 hours a day), especially for fever, new numbness, new tingling new weakness, new urinary or bowel incontinence or retention, or other new symptoms. If you are having severe or life threatening symptoms, or symptoms that make it unsafe to drive or have someone drive you, please call 911 - Post Discharge Activity
[2020-02-27 00:57] LABS: URINE APPEARANCE CLEAR; URINE BILIRUBIN NEGATIVE (NEGATIVE); URINE COLOR YELLOW; URINE GLUCOSE (UA) NEGATIVE (NEGATIVE); URINE KETONE TRACE (NEGATIVE); URINE LEUK ESTERASE NEGATIVE (NEGATIVE); URINE NITRITE NEGATIVE (NEGATIVE); URINE PROTEIN NEGATIVE (NEGATIVE)
[2020-02-27 01:00] LABS: HCG,QUALITATIVE URINE Negative
[2020-02-27] MEDS ORDERED: METHOCARBAMOL 500 MG TABLET PO ONE (01:15)
[2020-02-27] MEDS ORDERED: KETOROLAC TROMETHAMINE 15 MG/ML VIAL IVPUSH ONE (01:15)
[2020-02-27] MEDS ORDERED: SODIUM CHLORIDE 0.9% 500 ML INFUS.BAG IV ONE (01:16)
[2020-02-27] MEDS ORDERED: KETOROLAC TROMETHAMINE 15 MG/ML VIAL ONE (01:25)
[2020-02-27] MEDS ORDERED: METHOCARBAMOL 500 MG TABLET ONE (01:25)
== END 2020-02-27 04:04 | disposition home or self-care (01) ==
LOC: JER 18:46 → JERFT 18:46 → JER 02-27 04:04
PROC: 3E033GC Introduction of Other Therapeutic Substance into Peripheral Vein, Percutaneous Approach (ICD-10-PCS; principal; 2020-02-26)
PROC: 3E0234Z Introduction of Serum, Toxoid and Vaccine into Muscle, Percutaneous Approach (ICD-10-PCS; 2020-02-26)
DX: M54.42 Lumbago with sciatica, left side (principal)
CPT/HCPCS: 72100-TC-FY; 81003; 84703; 87086; 99284-25

== ENCOUNTER 2020-03-01 18:25 | Emergency (ER) | payer OTHER ==
[2020-03-01 18:33] VITALS: BP 127/74; PULSE 93; TEMP 98; BMI 41.9
[2020-03-01] MEDS ORDERED: LIDOCAINE 5% TOPICAL PATCH TP ONE (19:08)
--- NOTE | 2020-03-01 19:16 | PDOC ---
History of Present Illness - General Chief Complaint: Back Pain Stated Complaint: FALL/PAIN/SACRAL REGION Time Seen by Provider: 03/01/20 18:47 History Source: Patient Exam Limitations: No Limitations - History of Present Illness Initial Comments: 03/01/20 19:12 Patient is a 29-year-old female who presents to the ED with low back pain after a trip and fall this morning while at home. She states she lost her footing and fell. The patient states she had lumbar back surgery in the past. She states that since her fall she has taken gabapentin and Naprosyn without any relief. She denies any numbness or tingling in her legs. She has been walking with her walker secondary to feeling unsteady from the pain. She states her pain is worse when she walks. She denies any urinary or fecal incontinence or retention. The patient has a history of lupus, arthritis in her back surgery. Past History - Medical History Allergies/Adverse Reactions: Allergies Allergy/AdvReac Type Severity Reaction Status Date / Time No Known Allergies Allergy Verified 03/01/20 18:33 Home Medications: Ambulatory Orders Esomeprazole Magnesium [Nexium 24Hr] 40 mg PO DAILY 02/24/17 Fluoxetine HCl [Prozac] 50 mg PO DAILY 02/24/17 Aripiprazole [Abilify] 10 mg PO HS 08/05/17 Gabapentin 300 mg PO DAILY 08/05/17 Zolpidem Tartrate [Ambien] 10 mg PO HS 08/05/17 Oxycodone HCl/Acetaminophen [Percocet 5-325 mg Tablet] 1 tab PO Q4H #20 tablet MDD 6 01/26/19 Lidocaine 5% Patch [Lidoderm Patch -] 1 patch TP DAILY #7 patch 03/01/20 Anemia: No COPD: No Diabetes: No HTN: No Psychiatric Problems: Yes (depression,anxiety,bipolar) Seizures: No - Surgical History Abdominal Surgery: Yes Cholecystectomy: Yes GI Surgery: Yes (gastric surgery) Neurologic Surgery: Yes (back surg x4) - Reproductive History Is Patient Now?: No - Immunization History Immunization Up to Date: Yes - Psycho-Social/Smoking History Smoking History: Never smoked Have you smoked in the past 12 months: No Number of Cigarettes Smoked Daily: 0 Cigars Per Day: 0 Information on smoking cessation initiated: No - Substance Abuse Hx (Audit-C & DAST Scrn) How often the patient has a drink containing alcohol: Never Score: In Men: 4 or > Positive; In Women: 3 or > Positive: 0 Screen Result (Pos requires Nsg. Audit-10AR): Negative In the last yr the pt used illegal drug/Rx for NonMed reason: No Score: Yes response is considered Positive: 0 Screen Result (Positive result requires Nsg. DAST-10): Negative Review of Systems - Review of Systems Comments:: 03/01/20 19:14 - Review of Systems Able to Perform ROS?: Yes Constitutional: No: Fever, Chills, Loss of Appetite, Night Sweats, Weakness HEENTM: No: Eye Pain, Vision changes, Ear Pain, Throat Pain, Throat Swelling, Mouth Pain, Difficulty Swallowing Respiratory: No: Cough, Shortness of Breath, Wheezing, Sputum Production Cardiac (ROS): No: Chest Pain, Chest Tightness, Palpitations, Irregular Heart Beat, Edema ABD/GI: No: Nausea, Vomiting, Abdominal Pain, Diarrhea : No Dysuria, No Hematuria, No Frequency, No Urgency, No Vaginal Discharge/Pain, No Penile Discharge/Pain Musculoskeletal: No: Muscle Pain, Joint Pain, Muscle Weakness, Neck Pain; positive: Left lumbar back pain since a fall this morning Integumentary: No: Lesions, Rash Neurological: No: Headache, Numbness, Tingling, Weakness, Speech Difficulties *Physical Exam - Vital Signs Last Vital Signs Temp Pulse Resp BP Pulse Ox 98 F 93 H 17 127/74 97 03/01/20 18:31 03/01/20 18:31 03/01/20 18:31 03/01/20 18:31 03/01/20 18:31 - Physical Exam 03/01/20 19:14 - Physical Exam General Appearance: Nourished, Appropriately Dressed, No Distress HEENT: EOMI, Normal Voice, Hearing Grossly Normal Neck: Supple, No Lymphadenopathy (R), No Lymphadenopathy (L), No Rigidity, No Decreased range of motion Respiratory/Chest: Lungs Clear, Normal Breath Sounds. No Respiratory Distress, No Accessory Muscle Use Cardiovascular: Regular Rhythm, Regular Rate, S1, S2 Gastrointestinal/Abdominal: Normal Bowel Sounds, Soft. Non-tender, No Guarding, No Rebound, No Rigidity Musculoskeletal: Normal Inspection. No Decreased Range of Motion; significant left lumbar tenderness to palpation. Mild midline back tenderness to palpation. EHL intact bilaterally. Sensation intact distally. Patient with an antalgic gait when not using the walker. Extremity: Normal Capillary Refill, Normal Inspection Integumentary: Normal Color, Dry. No Rash Neurologic: egg sorter II-XII NML intact, Fully Oriented, Alert, Normal Mood/Affect, Normal Response ED Treatment Course - RADIOLOGY Radiology Studies Ordered: Category Date Time Status SPINE-LUMBAR ONLY [RAD] Stat Radiology 03/01/20 19:08 Ordered Medical Decision Making - Medical Decision Making 03/01/20 19:15 Assessment: Patient is a 29-year-old female with left lumbar back pain after a fall earlier today. Plan: -Lidocaine patch ordered -Flexeril p.o. ordered -Lumbar back x-ray ordered -Will reassess 03/01/20 19:49 The lumbar spine x-ray shows a 3 level fusion from L3-L5 with cage appreciated. Hardware looks in good positioning and without evidence of loosening. The patient has been made aware that her x-ray shows no acute pathology. She should follow-up with her spine surgeon within 2 to 3 days for repeat evaluation. Lidocaine patches have been sent to the patient's pharmacy. She should continue to take Naprosyn and gabapentin. She understands and agrees with this treatment plan and she is stable for discharge. Discharge - Discharge Information Problems reviewed: Yes Clinical Impression/Diagnosis: Lumbar back pain Condition: Stable Disposition: HOME - Additional Discharge Information Prescriptions: Lidocaine 5% Patch [Lidoderm Patch -] 1 patch TP DAILY #7 patch - Follow up/Referral - Patient Discharge Instructions Patient Printed Discharge Instructions: DI for Low Back Pain Additional Instructions: Get plenty of rest and avoid strenuous activity. Continue to take the Naprosyn and the gabapentin that you were previously prescribed. You can use the lidocaine patches to help with pain and I have sent your prescription to your pharmacy. Be sure to follow-up with your spine surgeon in the next 2 to 3 days for repeat evaluation. Return to the emergency department for worsening pain, numbness or tingling, inability to hold your stool or urine or any other worsening symptoms. Descanse mucho y evite las actividades extenuantes. Contine tomando Naprosyn y la gabapentina que le recetaron anteriormente. Puede usar los parches de lidocana para ayudar con el dolor y he enviado alan receta a alan farmacia. Asegrese de hacer un seguimiento con alan cirujano de columna en los prximos 2 a 3 baac para repetir la evaluacin. Regrese al departamento de emergencias si empeora el dolor, entumecimiento u hormigueo, incapacidad para retener las heces u orina o cualquier otro sntoma que empeora - Post Discharge Activity Work/Back to School Note: Back to Work
[2020-03-01] MEDS: CYCLOBENZAPRINE HCL 10 MG TABLET (FP) PO ONE ×2 (19:17→19:22)
[2020-03-01] MEDS ORDERED: LIDOCAINE 5% TOPICAL PATCH ONE (19:17)
[2020-03-01] MEDS ORDERED: CYCLOBENZAPRINE HCL 10 MG TABLET (FP) ONE ×2 (19:18→19:19)
[2020-03-01] MEDS ORDERED: LIDOCAINE PATCH REMOVAL MC SCH (22:00)
== END 2020-03-01 19:57 | disposition home or self-care (01) ==
LOC: JERFT 18:25
DX: M54.5 Low back pain (principal)
CPT/HCPCS: 72100-TC-FY; 99284-25

== ENCOUNTER 2020-06-04 20:08 | Inpatient (IN) | payer OTHER ==
[2020-06-04] MEDS ORDERED: predniSONE 20 MG TABLET (UD) PO ONE (21:53)
[2020-06-04] MEDS ORDERED: diazePAM 5 MG TABLET PO ONE (21:53)
[2020-06-04] MEDS ORDERED: LIDOCAINE 5% TOPICAL PATCH TP ONE (21:53)
[2020-06-04] MEDS ORDERED: predniSONE 20 MG TABLET (UD) ONE (22:01)
[2020-06-04] MEDS ORDERED: diazePAM 5 MG TABLET ONE (22:02)
[2020-06-04] MEDS ORDERED: LIDOCAINE 5% TOPICAL PATCH ONE (22:03)
[2020-06-04 22:28] LABS: BASO % 0.4 % (0-2.0); EOS % 1.2 % (0-4.5); HEMATOCRIT 28.9 % (32.4-45.2); HEMOGLOBIN 9.1 GM/dL (10.7-15.3); LYMPH % 34.5 % (8-40); MCH 23.6 pg (25.7-33.7); MCHC 31.5 g/dl (32.0-36.0); MEAN CELL VOLUME 74.8 fl (80-96); MEAN PLT VOLUME 7.4 fl (7.5-11.1); MONO % 6.4 % (3.8-10.2); NEUT % 57.5 % (42.8-82.8); PLATELET COUNT 500 K/MM3 (134-434); RBC 3.87 M/mm3 (3.60-5.2); RDW 17.5 % (11.6-15.6); WHITE BLOOD COUNT 12.3 K/mm3 (4.0-10.0)
[2020-06-04 22:43] LABS: POTASSIUM 4.2 mmol/L (3.5-5.1)
[2020-06-04 22:46] LABS: ALBUMIN 3.4 g/dl (3.4-5.0); BLOOD UREA NITROGEN 16.4 mg/dL (7-18)
[2020-06-04 22:49] LABS: CREATININE 0.6 mg/dL (0.55-1.3)
[2020-06-04 22:51] LABS: BILIRUBIN,TOTAL 0.2 mg/dL (0.2-1); TOT PROT 7.2 g/dl (6.4-8.2)
[2020-06-04] MEDS ORDERED: KETOROLAC TROMETHAMINE 60 MG/2 ML VIAL IM ONE (23:13)
[2020-06-04] MEDS ORDERED: KETOROLAC TROMETHAMINE 60 MG/2 ML VIAL ONE (23:18)
[2020-06-05 01:01] LABS: EPI CELLS 11 /uL (0-25.1); HYALINE CASTS 1 /uL (0-3.1); URINE APPEARANCE CLEAR; URINE BACTERIA 227 /uL (0-1359); URINE BILIRUBIN NEGATIVE (NEGATIVE); URINE COLOR YELLOW; URINE GLUCOSE (UA) NEGATIVE (NEGATIVE); URINE KETONE NEGATIVE (NEGATIVE); URINE LEUK ESTERASE NEGATIVE (NEGATIVE); URINE NITRITE NEGATIVE (NEGATIVE); URINE PROTEIN NEGATIVE (NEGATIVE); URINE RBC 32 /uL (0-23.9); URINE UROBILINOGEN 0.2 mg/dL (0.2-1.0); URINE WBC 6 /uL (0-25.8)
[2020-06-05] MEDS ORDERED: morphine CARPU-JECT 2 MG/1 ML DISP.SYRIN IVPUSH ONE (01:55)
[2020-06-05] MEDS ORDERED: ONDANSETRON 4 MG/2 ML VIAL IVPUSH ONE (01:55)
[2020-06-05] MEDS ORDERED: morphine SULFATE 4 MG/ML VIAL ONE (03:07)
[2020-06-05] MEDS ORDERED: ONDANSETRON 4 MG/2 ML VIAL ONE (03:08)
[2020-06-05] MEDS ORDERED: GABAPENTIN 300 MG CAPSULE PO ONE (04:00)
[2020-06-05 07:47] LABS: POTASSIUM 5.1 mmol/L (3.5-5.1)
[2020-06-05 07:50] LABS: CALCIUM 8.6 mg/dL (8.5-10.1)
[2020-06-05 07:51] LABS: MAGNESIUM 2.2 mg/dL (1.8-2.4)
[2020-06-05 07:54] LABS: CREATININE 0.7 mg/dL (0.55-1.3)
[2020-06-05 07:55] LABS: PHOSPHOROUS 3.4 mg/dL (2.5-4.9)
[2020-06-05 08:14] LABS: HEMATOCRIT 31.1 % (32.4-45.2); HEMOGLOBIN 9.7 GM/dL (10.7-15.3); MCH 23.5 pg (25.7-33.7); MCHC 31.3 g/dl (32.0-36.0); MEAN CELL VOLUME 75.3 fl (80-96); MEAN PLT VOLUME 7.8 fl (7.5-11.1); PLATELET COUNT 521 K/MM3 (134-434); RBC 4.13 M/mm3 (3.60-5.2); RDW 17.4 % (11.6-15.6); WHITE BLOOD COUNT 10.6 K/mm3 (4.0-10.0)
[2020-06-05] MEDS ORDERED: ACETAMINOPHEN INJECTION 100 ML IVPB ONE (08:59)
[2020-06-05 09:05] LABS: PROTHROMBIN TIME (PATIENT) 12.3 SEC (9.7-13.0)
[2020-06-05] MEDS: ACETAMINOPHEN 1000 MG/100 ML VIAL (NON FORMULARY) IVPB PRN ×2 (09:15→16:11)
[2020-06-05] MEDS ORDERED: LIDOCAINE PATCH REMOVAL MC ONE (10:00)
[2020-06-05] MEDS ORDERED: ENOXAPARIN NA (PORCINE) 40 MG/0.4 ML DISP.SYRIN SQ SCH (10:00)
[2020-06-05] MEDS ORDERED: amLODIPine BESYLATE 5 MG TABLET (FP) PO SCH (10:00)
[2020-06-05] MEDS ORDERED: VALSARTAN 80 MG TABLET PO SCH (10:00)
[2020-06-05] MEDS ORDERED: BACLOFEN 10 MG TABLET (FP) PO SCH (10:00)
[2020-06-05] MEDS ORDERED: LIDOCAINE 5% TOPICAL PATCH ONE (11:35)
[2020-06-05] MEDS ORDERED: BACLOFEN 10 MG TABLET (FP) ONE (11:35)
[2020-06-05] MEDS ORDERED: VALSARTAN 80 MG TABLET ONE (11:35)
[2020-06-05] MEDS ORDERED: IRON SUCROSE INJECTION 200 MG in SODIUM CHLORIDE 90 ML IVPB ONE (13:45)
[2020-06-05] MEDS ORDERED: traMADol HCL 50 MG TABLET PO ONE (15:25)
[2020-06-05] MEDS: GABAPENTIN 300 MG CAPSULE PO SCH ×2 (16:12→21:43)
[2020-06-05] MEDS ORDERED: morphine SULFATE 4 MG/ML VIAL IVPUSH ONE (17:44)
[2020-06-05 18:05] VITALS: BMI 43.0
[2020-06-05] MEDS: DULoxetine HCL 30 MG CAPSULE.DR PO SCH (21:43)
[2020-06-05] MEDS: QUEtiapine FUMARATE 200 MG TABLET PO SCH (21:43)
[2020-06-05] MEDS: BACLOFEN 10 MG TABLET (FP) PO SCH (21:43)
[2020-06-05] MEDS: LITHIUM CARBONATE 450 MG TABLET.ER PO SCH (21:45)
[2020-06-05] MEDS ORDERED: MORPHINE SULFATE 2 MG/ML VIAL IVPUSH ONE (21:54)
[2020-06-05] MEDS ORDERED: GABAPENTIN 300 MG CAPSULE PO SCH (22:00)
[2020-06-06] MEDS: GABAPENTIN 300 MG CAPSULE PO SCH ×3 (06:06→22:30)
[2020-06-06 06:49] LABS: HEMATOCRIT 29.4 % (32.4-45.2); HEMOGLOBIN 9.1 GM/dL (10.7-15.3); MCH 23.4 pg (25.7-33.7); MCHC 30.9 g/dl (32.0-36.0); MEAN CELL VOLUME 75.9 fl (80-96); MEAN PLT VOLUME 7.6 fl (7.5-11.1); PLATELET COUNT 486 K/MM3 (134-434); RBC 3.88 M/mm3 (3.60-5.2); RDW 17.9 % (11.6-15.6)
[2020-06-06 07:09] LABS: POTASSIUM 4.3 mmol/L (3.5-5.1)
[2020-06-06 07:19] LABS: BLOOD UREA NITROGEN 13.1 mg/dL (7-18); CALCIUM 8.5 mg/dL (8.5-10.1)
[2020-06-06 07:22] LABS: CREATININE 0.5 mg/dL (0.55-1.3)
[2020-06-06 07:23] LABS: PHOSPHOROUS 2.8 mg/dL (2.5-4.9)
[2020-06-06 07:28] LABS: MAGNESIUM 2.3 mg/dL (1.8-2.4)
[2020-06-06] MEDS: traMADol HCL 50 MG TABLET PO PRN ×2 (08:51→15:26)
[2020-06-06] MEDS: amLODIPine BESYLATE 5 MG TABLET (FP) PO SCH (09:01)
[2020-06-06] MEDS: BACLOFEN 10 MG TABLET (FP) PO SCH ×2 (09:01→22:29)
[2020-06-06] MEDS: DULoxetine HCL 30 MG CAPSULE.DR PO SCH ×2 (09:01→22:29)
[2020-06-06] MEDS: HYDROCHLOROTHIAZIDE 12.5 MG CAPSULE (FP) PO SCH (09:01)
[2020-06-06] MEDS: PANTOPRAZOLE 40 MG TABLET PO SCH (09:02)
[2020-06-06] MEDS: VALSARTAN 80 MG TABLET PO SCH (09:02)
[2020-06-06] MEDS ORDERED: PATIENT'S OWN MEDICATION (NON-FORMULARY) (Valsartan/Hydrochlorothiazide 1 TAB Tablet) PO SCH (10:00)
[2020-06-06] MEDS ORDERED: PATIENT'S OWN MEDICATION (NON-FORMULARY) (Ferrous Sulfate [Ferrous Sulfate] 325 MG Tablet) PO SCH (10:00)
[2020-06-06] MEDS: morphine SULFATE 4 MG/ML VIAL IVPUSH PRN ×3 (11:50→23:51)
[2020-06-06] MEDS ORDERED: DOCUSATE SODIUM 100 MG CAPSULE (FP) PO ONE (15:11)
[2020-06-06] MEDS ORDERED: POLYETHYLENE GLYCOL 3350 119 GM BTL PO ONE (15:11)
[2020-06-06] MEDS ORDERED: SENNOSIDES 8.6MG TABLET (FP) PO ONE (15:12)
[2020-06-06] MEDS ORDERED: PT OWN MED DRAWER 7, Y5N ONE (21:28)
[2020-06-06] MEDS: QUEtiapine FUMARATE 200 MG TABLET PO SCH (22:29)
[2020-06-06] MEDS: LITHIUM CARBONATE 450 MG TABLET.ER PO SCH (22:30)
[2020-06-07] MEDS: GABAPENTIN 300 MG CAPSULE PO SCH ×3 (05:17→21:10)
[2020-06-07] MEDS: morphine SULFATE 4 MG/ML VIAL IVPUSH PRN (05:17)
[2020-06-07] MEDS: HYDROCHLOROTHIAZIDE 12.5 MG CAPSULE (FP) PO SCH (08:59)
[2020-06-07] MEDS: traMADol HCL 50 MG TABLET PO PRN ×2 (08:59→16:06)
[2020-06-07] MEDS: VALSARTAN 80 MG TABLET PO SCH (08:59)
[2020-06-07] MEDS: DULoxetine HCL 30 MG CAPSULE.DR PO SCH ×3 (08:59→21:12)
[2020-06-07] MEDS: amLODIPine BESYLATE 5 MG TABLET (FP) PO SCH (09:00)
[2020-06-07] MEDS: PANTOPRAZOLE 40 MG TABLET PO SCH (09:00)
[2020-06-07] MEDS: BACLOFEN 10 MG TABLET (FP) PO SCH ×2 (09:00→21:10)
[2020-06-07 09:11] LABS: HEMATOCRIT 30.6 % (32.4-45.2); HEMOGLOBIN 9.8 GM/dL (10.7-15.3); MCH 24.1 pg (25.7-33.7); MCHC 31.9 g/dl (32.0-36.0); MEAN CELL VOLUME 75.7 fl (80-96); MEAN PLT VOLUME 7.5 fl (7.5-11.1); PLATELET COUNT 498 K/MM3 (134-434); RBC 4.04 M/mm3 (3.60-5.2); RDW 17.8 % (11.6-15.6); WHITE BLOOD COUNT 9.4 K/mm3 (4.0-10.0)
[2020-06-07 09:36] LABS: POTASSIUM 4.1 mmol/L (3.5-5.1)
[2020-06-07 09:47] LABS: CREATININE 0.5 mg/dL (0.55-1.3)
[2020-06-07 09:49] LABS: CALCIUM 8.6 mg/dL (8.5-10.1)
[2020-06-07 09:50] LABS: MAGNESIUM 2.3 mg/dL (1.8-2.4)
[2020-06-07 09:53] LABS: PHOSPHOROUS 3.7 mg/dL (2.5-4.9)
[2020-06-07] MEDS ORDERED: TIZANIDINE HCL 2 MG TABLET PO PRN (09:59)
[2020-06-07] MEDS ORDERED: MAGNESIUM HYDROX 2400MG/30ML ORAL SUSPENSION 30 ML CUP PO PRN (10:44)
[2020-06-07] MEDS: LIDOCAINE 5% TOPICAL PATCH TP SCH (11:25)
[2020-06-07] MEDS: DOCUSATE SODIUM 100 MG CAPSULE (FP) PO SCH ×2 (11:25→21:10)
[2020-06-07] MEDS: SENNOSIDES 8.6MG TABLET (FP) PO SCH (11:25)
[2020-06-07] MEDS: NAPROXEN 500 MG TABLET PO SCH ×2 (11:26→21:12)
[2020-06-07] MEDS ORDERED: POLYETHYLENE GLYCOL 3350 119 GM BTL PO ONE (11:45)
[2020-06-07] MEDS ORDERED: IRON SUCROSE INJECTION 200 MG in SODIUM CHLORIDE 90 ML IVPB ONE ×2 (13:00→16:22)
[2020-06-07] MEDS: ACETAMINOPHEN 500 MG TABLET (FP) PO SCH ×2 (13:21→21:11)
[2020-06-07] MEDS: predniSONE 20 MG TABLET (UD) PO SCH (18:33)
[2020-06-07] MEDS ORDERED: PT OWN MED DRAWER 7, Y5N ONE (20:23)
[2020-06-07] MEDS: LITHIUM CARBONATE 450 MG TABLET.ER PO SCH (21:10)
[2020-06-07] MEDS: QUEtiapine FUMARATE 200 MG TABLET PO SCH (21:10)
[2020-06-07] MEDS ORDERED: LIDOCAINE PATCH REMOVAL MC SCH (22:00)
[2020-06-08] MEDS: traMADol HCL 50 MG TABLET PO PRN ×2 (01:53→13:32)
[2020-06-08] MEDS: GABAPENTIN 300 MG CAPSULE PO SCH ×2 (06:22→13:31)
[2020-06-08] MEDS: ACETAMINOPHEN 500 MG TABLET (FP) PO SCH ×2 (06:22→13:32)
[2020-06-08] MEDS ORDERED: PT OWN MED DRAWER 7, Y5N ONE (09:11)
[2020-06-08] MEDS: LIDOCAINE 5% TOPICAL PATCH TP SCH (09:30)
[2020-06-08] MEDS: DOCUSATE SODIUM 100 MG CAPSULE (FP) PO SCH (09:31)
[2020-06-08] MEDS: PANTOPRAZOLE 40 MG TABLET PO SCH (09:31)
[2020-06-08] MEDS: NAPROXEN 500 MG TABLET PO SCH (09:31)
[2020-06-08] MEDS: predniSONE 20 MG TABLET (UD) PO SCH (09:31)
[2020-06-08] MEDS: SENNOSIDES 8.6MG TABLET (FP) PO SCH (09:31)
[2020-06-08] MEDS: VALSARTAN 80 MG TABLET PO SCH (09:31)
[2020-06-08] MEDS: amLODIPine BESYLATE 5 MG TABLET (FP) PO SCH (09:31)
[2020-06-08] MEDS: BACLOFEN 10 MG TABLET (FP) PO SCH (09:31)
[2020-06-08] MEDS: HYDROCHLOROTHIAZIDE 12.5 MG CAPSULE (FP) PO SCH (09:31)
[2020-06-08] MEDS: DULoxetine HCL 30 MG CAPSULE.DR PO SCH (09:31)
[2020-06-08] MEDS ORDERED: FERROUS SO4 325 MG TABLET (FP) PO SCH (10:00)
[2020-06-08 15:34] VITALS: BP 120/74; PULSE 85; TEMP 98.5
== END 2020-06-08 18:02 | disposition home health service (06) | DRG 74 ==
LOC: JER 20:08 → JERBED 06-05 02:49 → J8W 06-05 14:49
PROVIDERS: ADMIT Hospitalist
DX: M54.10 Radiculopathy, site unspecified (principal); Z68.41 Body mass index [BMI] 40.0-44.9, adult; M54.42 Lumbago with sciatica, left side; R00.0 Tachycardia, unspecified; D64.9 Anemia, unspecified; G40.909 Epilepsy, unspecified, not intractable, without status epilepticus; M79.7 Fibromyalgia; M32.9 Systemic lupus erythematosus, unspecified; M06.9 Rheumatoid arthritis, unspecified; F32.9 Major depressive disorder, single episode, unspecified; F41.9 Anxiety disorder, unspecified; I10 Essential (primary) hypertension; D50.9 Iron deficiency anemia, unspecified; K21.9 Gastro-esophageal reflux disease without esophagitis; K59.00 Constipation, unspecified; E66.9 Obesity, unspecified; N31.9 Neuromuscular dysfunction of bladder, unspecified; M48.061 Spinal stenosis, lumbar region without neurogenic claudication; W18.30XA Fall on same level, unspecified, initial encounter; Y92.098 Other place in other non-institutional residence as the place of occurrence of the external cause; Z98.84 Bariatric surgery status
CPT/HCPCS: 36415; 72131-TC; 72158-TC; 80048; 80053; 81003; 82272; 82728; 83540; 83550; 83735; 84100; 84466; 84703; 85025; 85027; 85610; 86850; 86900; 86901; 93005; 93010; 97116-GP; 97161-GP; 99285-25; A9579; C9803; J0131; J0475; J1756; U0003

== ENCOUNTER 2020-06-20 23:14 | Emergency (ER) | payer OTHER ==
[2020-06-20 23:32] VITALS: BP 138/81; PULSE 107; TEMP 98.5; BMI 45.1
[2020-06-20] MEDS ORDERED: ACETAMINOPHEN 325 MG TABLET (FP) PO ONE (23:40)
[2020-06-20] MEDS ORDERED: ACETAMINOPHEN 325 MG TABLET (FP) ONE (23:43)
[2020-06-21] MEDS ORDERED: AZITHROMYCIN IVPB 500 MG in DEXTROSE 5%-WATER - 250 ML IVPB ONE (00:58)
[2020-06-21] MEDS ORDERED: AZITHROMYCIN 250 MG TABLET PO ONE (01:03)
[2020-06-21] MEDS ORDERED: AZITHROMYCIN 250 MG TABLET ONE (01:03)
== END 2020-06-21 01:15 | disposition home or self-care (01) ==
LOC: JER 23:14
DX: J18.9 Pneumonia, unspecified organism (principal)
CPT/HCPCS: 71046-TC-FY; 99284-25

== ENCOUNTER 2020-11-30 20:19 | Inpatient (IN) | payer OTHER ==
[2020-11-30] MEDS ORDERED: ACETAMINOPHEN 1000 MG/100 ML VIAL (NON FORMULARY) IVPB ONE (20:56)
[2020-11-30] MEDS ORDERED: SODIUM CHLORIDE 1,000 ML IV STA (20:56)
[2020-11-30] MEDS ORDERED: ACETAMINOPHEN INJECTION 100 ML IVPB ONE (21:07)
[2020-11-30 21:14] LABS: BASO % 1.1 % (0-2.0); EOS % 0.6 % (0-4.5); HEMATOCRIT 38.8 % (32.4-45.2); HEMOGLOBIN 12.6 GM/dL (10.7-15.3); LYMPH % 38.1 % (8-40); MCH 25.3 pg (25.7-33.7); MCHC 32.4 g/dl (32.0-36.0); MEAN CELL VOLUME 77.9 fl (80-96); MEAN PLT VOLUME 8.6 fl (7.5-11.1); MONO % 5.8 % (3.8-10.2); NEUT % 54.4 % (42.8-82.8); PLATELET COUNT 510 K/MM3 (134-434); RBC 4.98 M/mm3 (3.60-5.2); RDW 16.5 % (11.6-15.6); WHITE BLOOD COUNT 13.3 K/mm3 (4.0-10.0)
[2020-11-30 21:20] LABS: INR 1.03 (0.83-1.09); PROTHROMBIN TIME (PATIENT) 12.6 SEC (9.7-13.0)
[2020-11-30 21:23] LABS: EPI CELLS 13 /uL (0-25.1); HYALINE CASTS 1 /uL (0-3.1); PH,URINE 5.5 (5.0-8.0); URINE APPEARANCE CLEAR; URINE BACTERIA 686 /uL (0-1359); URINE BILIRUBIN NEGATIVE (NEGATIVE); URINE COLOR YELLOW; URINE GLUCOSE (UA) NEGATIVE (NEGATIVE); URINE KETONE NEGATIVE (NEGATIVE); URINE LEUK ESTERASE NEGATIVE (NEGATIVE); URINE NITRITE NEGATIVE (NEGATIVE); URINE PROTEIN NEGATIVE (NEGATIVE); URINE RBC 51 /uL (0-23.9); URINE UROBILINOGEN 0.2 mg/dL (0.2-1.0); URINE WBC 12 /uL (0-25.8)
[2020-11-30 21:26] LABS: HCG,QUALITATIVE URINE Negative
[2020-11-30 21:32] LABS: BLOOD UREA NITROGEN 7.7 mg/dL (7-18); CALCIUM 9.7 mg/dL (8.5-10.1)
[2020-11-30 21:33] LABS: ALBUMIN 4.6 g/dl (3.4-5.0)
[2020-11-30 21:36] LABS: CREATININE 0.7 mg/dL (0.55-1.3)
[2020-11-30 21:37] LABS: BILIRUBIN,TOTAL 0.3 mg/dL (0.2-1); TOT PROT 9.3 g/dl (6.4-8.2)
[2020-11-30] MEDS ORDERED: morphine CARPU-JECT 4 MG/1 ML DISP.SYRIN IVPUSH ONE (21:37)
[2020-11-30] MEDS ORDERED: morphine SULFATE 4 MG/ML VIAL ONE (22:01)
[2020-11-30] MEDS ORDERED: morphine CARPU-JECT 2 MG/1 ML DISP.SYRIN IVPUSH ONE (23:28)
[2020-11-30] MEDS ORDERED: PIPERACILLIN/TAZOB 3.375 GM 3.375 GM in DEXTROSE 5%-WATER - 50 ML IVPB ONE (23:29)
[2020-11-30] MEDS ORDERED: MORPHINE SULFATE 2 MG/ML VIAL ONE (23:30)
[2020-11-30] MEDS ORDERED: PIPERACILLIN/TAZOB 3.375 GM 3.375 GM/50 ML BAG IVPB ONE (23:31)
[2020-12-01] MEDS ORDERED: KETOROLAC TROMETHAMINE 30 MG/1 ML VIAL IVPUSH ONE (02:12)
[2020-12-01] MEDS ORDERED: KETOROLAC TROMETHAMINE 30 MG/1 ML VIAL ONE (02:20)
[2020-12-01] MEDS ORDERED: SODIUM CHLORIDE 1,000 ML IV STA (04:46)
[2020-12-01] MEDS: SODIUM CHLORIDE 1,000 ML IV SCH ×3 (05:05→21:59)
[2020-12-01] MEDS ORDERED: MORPHINE SULFATE 2 MG/ML VIAL ONE (05:33)
[2020-12-01 05:59] LABS: BASO % 1.3 % (0-2.0); EOS % 0.6 % (0-4.5); HEMATOCRIT 34.1 % (32.4-45.2); HEMOGLOBIN 11.3 GM/dL (10.7-15.3); LYMPH % 37.7 % (8-40); MCH 25.6 pg (25.7-33.7); MCHC 33.1 g/dl (32.0-36.0); MEAN CELL VOLUME 77.3 fl (80-96); MEAN PLT VOLUME 8.2 fl (7.5-11.1); MONO % 7.6 % (3.8-10.2); NEUT % 52.8 % (42.8-82.8); PLATELET COUNT 421 K/MM3 (134-434); RBC 4.42 M/mm3 (3.60-5.2); RDW 16.4 % (11.6-15.6); WHITE BLOOD COUNT 9.2 K/mm3 (4.0-10.0)
[2020-12-01] MEDS: MORPHINE SULFATE 2 MG/ML VIAL IVPUSH PRN ×3 (06:02→14:19)
[2020-12-01 06:15] LABS: CALCIUM 8.6 mg/dL (8.5-10.1)
[2020-12-01 06:16] LABS: BLOOD UREA NITROGEN 7.2 mg/dL (7-18); MAGNESIUM 1.8 mg/dL (1.8-2.4)
[2020-12-01 06:19] LABS: CREATININE 0.5 mg/dL (0.55-1.3); PHOSPHOROUS 3.7 mg/dL (2.5-4.9)
[2020-12-01 06:20] LABS: BILIRUBIN,TOTAL 0.4 mg/dL (0.2-1)
[2020-12-01 06:23] LABS: ALBUMIN 3.3 g/dl (3.4-5.0); TOT PROT 6.9 g/dl (6.4-8.2)
[2020-12-01] MEDS: INSULIN SLIDING SCALE (NOVOLOG) 1 VIAL SQ SCH ×4 (09:21→21:00)
[2020-12-01 10:13] VITALS: BMI 43.7
[2020-12-01] MEDS ORDERED: PNEUMOC 13-VAL CONJ-DIP CRM/PF 0.5 ML DISP.SYRIN IM ONE (10:55)
[2020-12-01] MEDS ORDERED: PNEUMOCOCCAL 23 VACCINE 0.5 ML VIAL IM ONE (11:00)
[2020-12-01] MEDS ORDERED: morphine SULFATE 4 MG/ML VIAL IM PRN (13:00)
[2020-12-01] MEDS ORDERED: ONDANSETRON 4 MG/2 ML VIAL IVPUSH PRN (13:45)
[2020-12-01] MEDS: morphine SULFATE 4 MG/ML VIAL IVPUSH PRN ×2 (17:48→22:00)
[2020-12-01] MEDS: ARIPiprazole 10 MG TABLET PO SCH (22:00)
[2020-12-01] MEDS: DULoxetine HCL 30 MG CAPSULE.DR PO SCH (22:00)
[2020-12-01] MEDS: clonazePAM 0.5 MG TABLET PO SCH (22:00)
[2020-12-02] MEDS: MORPHINE SULFATE 2 MG/ML VIAL IVPUSH PRN ×5 (00:45→18:54)
[2020-12-02] MEDS: morphine SULFATE 4 MG/ML VIAL IVPUSH PRN ×5 (03:06→21:38)
[2020-12-02] MEDS: SODIUM CHLORIDE 1,000 ML IV SCH ×2 (05:30→16:53)
[2020-12-02] MEDS: INSULIN SLIDING SCALE (NOVOLOG) 1 VIAL SQ SCH ×4 (06:07→21:25)
[2020-12-02 08:38] LABS: HEMATOCRIT 34.3 % (32.4-45.2); HEMOGLOBIN 11.1 GM/dL (10.7-15.3); MCH 25.3 pg (25.7-33.7); MCHC 32.3 g/dl (32.0-36.0); MEAN CELL VOLUME 78.4 fl (80-96); MEAN PLT VOLUME 8.2 fl (7.5-11.1); PLATELET COUNT 434 K/MM3 (134-434); RBC 4.38 M/mm3 (3.60-5.2); RDW 16.6 % (11.6-15.6); WHITE BLOOD COUNT 9.7 K/mm3 (4.0-10.0)
[2020-12-02 09:03] LABS: CALCIUM 9.1 mg/dL (8.5-10.1)
[2020-12-02 09:04] LABS: ALBUMIN 3.2 g/dl (3.4-5.0); BLOOD UREA NITROGEN 4.2 mg/dL (7-18); MAGNESIUM 1.9 mg/dL (1.8-2.4)
[2020-12-02 09:07] LABS: CREATININE 0.4 mg/dL (0.55-1.3)
[2020-12-02 09:08] LABS: BILIRUBIN,TOTAL 0.7 mg/dL (0.2-1); TOT PROT 6.6 g/dl (6.4-8.2)
[2020-12-02] MEDS ORDERED: DEXAMETHASONE SOD PHOSPHATE 10 MG/1 ML VIAL IVPUSH ONE (09:27)
[2020-12-02] MEDS ORDERED: PT OWN MED DRAWER 7, Y5N ONE (09:27)
[2020-12-02] MEDS: DULoxetine HCL 30 MG CAPSULE.DR PO SCH ×2 (09:30→21:19)
[2020-12-02] MEDS: VITAMIN B COMPLEX W/C COMBO TABLET (FP) PO SCH (09:31)
[2020-12-02] MEDS ORDERED: INSULIN (NOVOLOG) ASPART 100 UNITS/ML 10ML VIAL ONE ×3 (16:50→21:25)
[2020-12-02] MEDS ORDERED: ARIPiprazole 5 MG TABLET ONE (20:31)
[2020-12-02] MEDS: ARIPiprazole 10 MG TABLET PO SCH (21:19)
[2020-12-02] MEDS: clonazePAM 0.5 MG TABLET PO SCH (21:19)
[2020-12-03] MEDS: MORPHINE SULFATE 2 MG/ML VIAL IVPUSH PRN ×2 (00:24→06:15)
[2020-12-03] MEDS: morphine SULFATE 4 MG/ML VIAL IVPUSH PRN (01:56)
[2020-12-03] MEDS: SODIUM CHLORIDE 1,000 ML IV SCH (03:00)
[2020-12-03] MEDS: INSULIN SLIDING SCALE (NOVOLOG) 1 VIAL SQ SCH ×4 (06:16→22:06)
[2020-12-03] MEDS ORDERED: PT OWN MED DRAWER 7, Y5N ONE (09:28)
[2020-12-03] MEDS ORDERED: ERGOCALCIFEROL (VIT D2) 50,000 UNIT (1.25 MG) CAPSULE PO SCH (10:00)
[2020-12-03] MEDS ORDERED: IBUPROFEN 400 MG TABLET (FP) PO ONE (10:02)
[2020-12-03] MEDS: clonazePAM 0.5 MG TABLET PO SCH ×2 (10:53→21:52)
[2020-12-03] MEDS: BACLOFEN 10 MG TABLET (FP) PO SCH ×2 (10:53→21:53)
[2020-12-03] MEDS: GABAPENTIN 300 MG CAPSULE PO SCH (10:53)
[2020-12-03] MEDS: VITAMIN B COMPLEX W/C COMBO TABLET (FP) PO SCH (10:55)
[2020-12-03] MEDS: DULoxetine HCL 30 MG CAPSULE.DR PO SCH ×2 (10:58→21:52)
[2020-12-03] MEDS: TIZANIDINE HCL 2 MG TABLET PO SCH ×2 (15:41→21:52)
[2020-12-03] MEDS: oxyCODONE HCL 5 MG TABLET PO PRN ×2 (16:42→23:11)
[2020-12-03 17:49] LABS: HEMATOCRIT 33.1 % (32.4-45.2); HEMOGLOBIN 10.6 GM/dL (10.7-15.3); MCH 24.8 pg (25.7-33.7); MCHC 32.1 g/dl (32.0-36.0); MEAN CELL VOLUME 77.4 fl (80-96); MEAN PLT VOLUME 8.7 fl (7.5-11.1); PLATELET COUNT 426 K/MM3 (134-434); RBC 4.27 M/mm3 (3.60-5.2); RDW 16.6 % (11.6-15.6)
[2020-12-03 18:15] LABS: MAGNESIUM 2.1 mg/dL (1.8-2.4)
[2020-12-03 18:18] LABS: CREATININE 0.4 mg/dL (0.55-1.3)
[2020-12-03 18:19] LABS: BILIRUBIN,TOTAL 0.3 mg/dL (0.2-1); TOT PROT 6.4 g/dl (6.4-8.2)
[2020-12-03] MEDS ORDERED: ACETAMINOPHEN 1000 MG/100 ML VIAL (NON FORMULARY) IVPB ONE (20:19)
[2020-12-03] MEDS ORDERED: ARIPiprazole 5 MG TABLET ONE ×2 (21:12→21:57)
[2020-12-03] MEDS ORDERED: clonazePAM 0.5 MG TABLET PO SCH (22:00)
[2020-12-03] MEDS: ARIPiprazole 10 MG TABLET PO SCH (22:00)
[2020-12-03] MEDS: ZOLPIDEM TARTRATE 5 MG TABLET PO PRN (22:06)
[2020-12-04] MEDS: SODIUM CHLORIDE 1,000 ML IV SCH ×2 (00:57→11:41)
[2020-12-04] MEDS: TIZANIDINE HCL 2 MG TABLET PO SCH ×2 (05:54→14:03)
[2020-12-04] MEDS: oxyCODONE HCL 5 MG TABLET PO PRN ×2 (05:54→11:39)
[2020-12-04] MEDS: INSULIN SLIDING SCALE (NOVOLOG) 1 VIAL SQ SCH ×4 (06:03→21:09)
[2020-12-04] MEDS ORDERED: PT OWN MED DRAWER 7, Y5N ONE (09:15)
[2020-12-04] MEDS: GABAPENTIN 300 MG CAPSULE PO SCH ×2 (09:18→21:08)
[2020-12-04] MEDS: DULoxetine HCL 30 MG CAPSULE.DR PO SCH ×2 (09:18→21:08)
[2020-12-04] MEDS: clonazePAM 0.5 MG TABLET PO SCH ×2 (09:18→21:08)
[2020-12-04] MEDS: BACLOFEN 10 MG TABLET (FP) PO SCH ×2 (09:18→21:07)
[2020-12-04] MEDS: VITAMIN B COMPLEX W/C COMBO TABLET (FP) PO SCH (09:19)
[2020-12-04] MEDS: LIDOCAINE 5% TOPICAL PATCH TP SCH (15:16)
[2020-12-04] MEDS ORDERED: ARIPiprazole 5 MG TABLET ONE (21:03)
[2020-12-04] MEDS: ZOLPIDEM TARTRATE 5 MG TABLET PO PRN (21:08)
[2020-12-04] MEDS: ARIPiprazole 10 MG TABLET PO SCH (21:09)
[2020-12-04] MEDS: NAPROXEN 500 MG TABLET PO SCH (21:09)
[2020-12-04] MEDS ORDERED: LIDOCAINE PATCH REMOVAL MC SCH (22:00)
[2020-12-05] MEDS: GABAPENTIN 300 MG CAPSULE PO SCH (06:23)
[2020-12-05] MEDS: SODIUM CHLORIDE 1,000 ML IV SCH ×2 (06:23→07:55)
[2020-12-05] MEDS: INSULIN SLIDING SCALE (NOVOLOG) 1 VIAL SQ SCH ×2 (06:25→12:00)
[2020-12-05 07:07] VITALS: TEMP 98.2
[2020-12-05 08:39] LABS: HEMATOCRIT 33.2 % (32.4-45.2); HEMOGLOBIN 10.8 GM/dL (10.7-15.3); MCH 25.3 pg (25.7-33.7); MCHC 32.5 g/dl (32.0-36.0); MEAN CELL VOLUME 77.8 fl (80-96); MEAN PLT VOLUME 8.7 fl (7.5-11.1); PLATELET COUNT 404 K/MM3 (134-434); RBC 4.27 M/mm3 (3.60-5.2); RDW 16.5 % (11.6-15.6); WHITE BLOOD COUNT 9.6 K/mm3 (4.0-10.0)
[2020-12-05 09:02] VITALS: BP 114/67; PULSE 69
[2020-12-05 09:04] LABS: CALCIUM 9.1 mg/dL (8.5-10.1)
[2020-12-05 09:05] LABS: ALBUMIN 3.1 g/dl (3.4-5.0); BLOOD UREA NITROGEN 5.3 mg/dL (7-18)
[2020-12-05 09:08] LABS: CREATININE 0.5 mg/dL (0.55-1.3)
[2020-12-05 09:10] LABS: BILIRUBIN,TOTAL 1.3 mg/dL (0.2-1); TOT PROT 6.4 g/dl (6.4-8.2)
[2020-12-05] MEDS ORDERED: PT OWN MED DRAWER 7, Y5N ONE (09:51)
[2020-12-05] MEDS: clonazePAM 0.5 MG TABLET PO SCH (09:57)
[2020-12-05] MEDS: NAPROXEN 500 MG TABLET PO SCH (09:57)
[2020-12-05] MEDS: DULoxetine HCL 30 MG CAPSULE.DR PO SCH (09:57)
[2020-12-05] MEDS: LIDOCAINE 5% TOPICAL PATCH TP SCH (09:57)
[2020-12-05] MEDS: VITAMIN B COMPLEX W/C COMBO TABLET (FP) PO SCH (09:58)
[2020-12-05] MEDS: BACLOFEN 10 MG TABLET (FP) PO SCH (09:58)
[2020-12-05] MEDS ORDERED: ACETAMINOPHEN 325 MG TABLET (FP) PO ONE (11:51)
== END 2020-12-05 14:35 | disposition home or self-care (01) | DRG 552 ==
LOC: JER 20:19 → JERBED 12-01 03:46 → J8W 12-01 09:50
PROVIDERS: ADMIT Internal Medicine; ATTEND Internal Medicine
DX: M54.5 Low back pain (principal); Z68.41 Body mass index [BMI] 40.0-44.9, adult; R10.31 Right lower quadrant pain; E66.01 Morbid (severe) obesity due to excess calories; D72.829 Elevated white blood cell count, unspecified; R74.01 Elevation of levels of liver transaminase levels; I10 Essential (primary) hypertension; E11.9 Type 2 diabetes mellitus without complications
CPT/HCPCS: 36415; 71045-TC-FY; 72157-TC; 72158-TC; 74177-TC; 76830-TC; 76856-TC; 80053; 81003; 82962; 83036; 83605; 83735; 84100; 84703; 85025; 85027; 85610; 86850; 86900; 86901; 87086; 90732; 93005; 93010; 97116-GP; 97161-GP; 99285-25; C1887; C9803; G0009; J0131; J0475; J1100; Q9967; U0003; U0005

== ENCOUNTER 2020-12-19 04:30 | Day surgery (SDC) | payer OTHER ==
[2020-12-18 19:09] VITALS: BMI 40.3
[2020-12-19] MEDS ORDERED: LIDOCAINE HCL/PF 1% SDV 5ML VIAL ONE ×2 (07:17→13:03)
[2020-12-19] MEDS ORDERED: TRIAMCINOLONE ACET 40MG/1ML VIAL ONE (07:17)
[2020-12-19] MEDS ORDERED: BUPIVACAINE HCL/PF 0.5% (5MG/ML) 10 ML VIAL ONE (07:18)
[2020-12-19] MEDS ORDERED: BUPIVACAINE HCL/PF 0.75% 10 ML VIAL ONE (07:18)
[2020-12-19] MEDS ORDERED: LIDOCAINE HCL 1% PRESERVATIVE FREE - 30ML VIAL IJ ONE (13:18)
[2020-12-19] MEDS ORDERED: TRIAMCINOLONE ACETONIDE 40 MG/ML 10 ML VIAL IJ ONE (13:19)
[2020-12-19] MEDS ORDERED: BUPIVACAINE HCL/PF 0.5% (5MG/ML) 10 ML VIAL IJ ONE ×2 (13:19→13:21)
[2020-12-19] MEDS ORDERED: TRIAMCINOLONE ACET 40MG/1ML VIAL IM ONE (13:19)
[2020-12-19] MEDS ORDERED: IOHEXOL 180 MG/1 ML ML IJ ONE ×2 (13:20→13:22)
[2020-12-19] MEDS ORDERED: ACETAMINOPHEN 325 MG TABLET (FP) ONE (14:05)
[2020-12-19] MEDS ORDERED: ACETAMINOPHEN 500 MG TABLET (FP) PO ONE (14:32)
[2020-12-19 14:43] VITALS: BP 114/56; PULSE 68; TEMP 98.8
== END 2020-12-19 14:22 | disposition home or self-care (01) ==
LOC: JASU-SURG 04:30
PROVIDERS: ATTEND Pain Medicine Pain Medicine
PROC: 3E0U3BZ Introduction of Anesthetic Agent into Joints, Percutaneous Approach (ICD-10-PCS; 2020-12-19)
PROC: 3E0U33Z Introduction of Anti-inflammatory into Joints, Percutaneous Approach (ICD-10-PCS; principal; 2020-12-19 14:30)
DX: M53.3 Sacrococcygeal disorders, not elsewhere classified (principal)
CPT/HCPCS: 76000-TC-FY; 81025

== ENCOUNTER 2021-01-09 05:02 | Day surgery (SDC) | payer OTHER ==
[2021-01-07 15:48] VITALS: BMI 42.1
[2021-01-09] MEDS ORDERED: LIDOCAINE HCL/PF 1% SDV 5ML VIAL ONE (07:35)
[2021-01-09] MEDS ORDERED: DEXAMETHASONE SOD PHOSPHATE 10 MG/1 ML VIAL ONE (07:35)
[2021-01-09] MEDS ORDERED: LIDOCAINE HCL 1% PRESERVATIVE FREE - 30ML VIAL IJ ONE ×2 (10:31)
[2021-01-09] MEDS ORDERED: IOHEXOL 180 MG/1 ML ML IJ ONE ×2 (10:32)
[2021-01-09] MEDS ORDERED: DEXAMETHASONE SOD PHOSPHATE 10 MG/1 ML VIAL IM ONE (10:34)
[2021-01-09 13:55] VITALS: BP 110/72; PULSE 63; TEMP 97.9
== END 2021-01-09 12:00 | disposition home or self-care (01) ==
LOC: JASU-SURG 05:02
PROVIDERS: ATTEND Pain Medicine Pain Medicine
PROC: 3E0R33Z Introduction of Anti-inflammatory into Spinal Canal, Percutaneous Approach (ICD-10-PCS; 2021-01-09)
PROC: 3E0R3BZ Introduction of Anesthetic Agent into Spinal Canal, Percutaneous Approach (ICD-10-PCS; principal; 2021-01-09 11:45)
DX: M54.16 Radiculopathy, lumbar region (principal)
CPT/HCPCS: 76000-TC-FY; 81025; J1100

== ENCOUNTER 2021-01-30 17:03 | Emergency (ER) | payer OTHER ==
[2021-01-30 17:36] VITALS: BP 120/67; PULSE 93; TEMP 97.8; BMI 41.9
[2021-01-30] MEDS ORDERED: KETOROLAC TROMETHAMINE 30 MG/1 ML VIAL IM ONE (18:16)
[2021-01-30] MEDS ORDERED: KETOROLAC TROMETHAMINE 30 MG/1 ML VIAL ONE (18:17)
== END 2021-01-30 19:47 | disposition home or self-care (01) ==
LOC: JER 17:03
PROC: 3E0233Z Introduction of Anti-inflammatory into Muscle, Percutaneous Approach (ICD-10-PCS; principal; 2021-01-30)
DX: M79.672 Pain in left foot (principal)
CPT/HCPCS: 73630-TC-LT; 99284-25

== ENCOUNTER 2021-02-23 02:55 | Inpatient (IN) | payer OTHER ==
[2021-02-23] MEDS ORDERED: ACETAMINOPHEN 500 MG TABLET (FP) PO ONE (03:45)
[2021-02-23] MEDS ORDERED: ACETAMINOPHEN 325 MG TABLET (FP) ONE (03:46)
[2021-02-23] MEDS ORDERED: cefTRIAXone SODIUM 1 GM VIAL ONE (04:11)
[2021-02-23] MEDS ORDERED: VANCOMYCIN 1 GM in D5W (PRE-DOCKED) 1,000 MG/250 ML IVPB ONE (04:26)
[2021-02-23] MEDS ORDERED: SODIUM CHLORIDE 0.9% 500 ML INFUS.BAG IV ONE (04:27)
[2021-02-23] MEDS ORDERED: morphine CARPU-JECT 2 MG/1 ML DISP.SYRIN IVPUSH ONE (04:27)
[2021-02-23] MEDS ORDERED: MORPHINE SULFATE 2 MG/ML VIAL ONE ×2 (05:07→11:05)
[2021-02-23] MEDS ORDERED: VANCOMYCIN 500 MG VIAL (RESTRICTED TO ID ONLY) ONE (05:31)
[2021-02-23 06:00] LABS: BASO % 0.3 % (0-2.0); HEMOGLOBIN 11.3 GM/dL (10.7-15.3); LYMPH % 35.6 % (8-40); MCH 26.2 pg (25.7-33.7); MCHC 33.2 g/dl (32.0-36.0); MEAN CELL VOLUME 78.8 fl (80-96); MEAN PLT VOLUME 8.3 fl (7.5-11.1); MONO % 6.5 % (3.8-10.2); NEUT % 56.6 % (42.8-82.8); PLATELET COUNT 472 10^3/uL (134-434); RBC 4.31 M/mm3 (3.60-5.2); WHITE BLOOD COUNT 14.6 K/mm3 (4.0-10.0)
[2021-02-23 06:10] LABS: ALBUMIN 3.3 g/dl (3.4-5.0); BLOOD UREA NITROGEN 9.1 mg/dL (7-18); CALCIUM 8.8 mg/dL (8.5-10.1)
[2021-02-23 06:14] LABS: CREATININE 0.5 mg/dL (0.55-1.3)
[2021-02-23 06:15] LABS: BILIRUBIN,TOTAL 0.2 mg/dL (0.2-1); TOT PROT 7.4 g/dl (6.4-8.2)
[2021-02-23] MEDS ORDERED: SODIUM CHLORIDE 1,000 ML IV SCH (09:00)
[2021-02-23] MEDS ORDERED: ACETAMINOPHEN 1000 MG/100 ML VIAL (NON FORMULARY) IVPB ONE ×2 (09:00→22:19)
[2021-02-23] MEDS ORDERED: DULoxetine HCL 30 MG CAPSULE.DR PO ONE (09:11)
[2021-02-23] MEDS ORDERED: BACLOFEN 10 MG TABLET (FP) ONE (09:11)
[2021-02-23] MEDS ORDERED: ACETAMINOPHEN INJECTION 100 ML IVPB ONE (09:12)
[2021-02-23] MEDS ORDERED: PANTOPRAZOLE SODIUM 40 MG/100 ML BAG IVPB ONE ×2 (09:12→09:32)
[2021-02-23] MEDS ORDERED: ENOXAPARIN NA (PORCINE) 40 MG/0.4 ML DISP.SYRIN SQ ONE (09:12)
[2021-02-23] MEDS: BACLOFEN 10 MG TABLET (FP) PO SCH ×2 (09:43→21:17)
[2021-02-23] MEDS: PANTOPRAZOLE SODIUM 40 MG VIAL IVPUSH SCH (09:43)
[2021-02-23] MEDS: DULoxetine HCL 30 MG CAPSULE.DR PO SCH ×2 (09:43→21:16)
[2021-02-23] MEDS: ENOXAPARIN NA (PORCINE) 40 MG/0.4 ML DISP.SYRIN SQ SCH (09:44)
[2021-02-23] MEDS ORDERED: MORPHINE SULFATE 2 MG/ML VIAL IVPUSH ONE ×2 (11:00→20:54)
[2021-02-23] MEDS: INSULIN SLIDING SCALE (NOVOLOG) 1 VIAL SQ SCH ×3 (11:04→21:15)
[2021-02-23] MEDS ORDERED: IBUPROFEN 800 MG/8 ML IJ IVPB ONE (15:57)
[2021-02-23] MEDS: GABAPENTIN 300 MG CAPSULE PO SCH ×2 (17:20→21:16)
[2021-02-23] MEDS: DOCUSATE SODIUM 100 MG CAPSULE (FP) PO SCH ×2 (17:20→21:17)
[2021-02-23 17:38] VITALS: BMI 42.9
[2021-02-23] MEDS ORDERED: ceFAZolin SODIUM 1 GM VIAL ONE (17:46)
[2021-02-23] MEDS ORDERED: DEXTROSE 5%-WATER - 50 ML IVPB ONE (17:46)
[2021-02-23] MEDS ORDERED: CEFAZOLIN 1 GM/D5W 1 GM/50 ML BAG IVPB SCH (18:00)
[2021-02-23] MEDS: CEFAZOLIN 1 GM in DEXTROSE 5%-WATER - 1 GM/50 ML IVPB IVPB SCH (18:18)
[2021-02-23] MEDS ORDERED: PT OWN MED DRAWER 7, Y5N ONE ×2 (21:05→22:39)
[2021-02-23] MEDS: ARIPiprazole 10 MG TABLET PO SCH (21:16)
[2021-02-24] MEDS ORDERED: ceFAZolin SODIUM 1 GM VIAL ONE ×3 (01:49→17:11)
[2021-02-24] MEDS ORDERED: DEXTROSE 5%-WATER - 50 ML IVPB ONE ×3 (01:50→17:12)
[2021-02-24] MEDS: CEFAZOLIN 1 GM in DEXTROSE 5%-WATER - 1 GM/50 ML IVPB IVPB SCH ×3 (01:56→17:18)
[2021-02-24] MEDS ORDERED: MORPHINE SULFATE 2 MG/ML VIAL IVPUSH ONE (02:28)
[2021-02-24] MEDS: GABAPENTIN 300 MG CAPSULE PO SCH ×3 (06:35→21:28)
[2021-02-24] MEDS: INSULIN SLIDING SCALE (NOVOLOG) 1 VIAL SQ SCH ×4 (06:35→21:28)
[2021-02-24 09:24] LABS: HEMATOCRIT 33.8 % (32.4-45.2); MCHC 32.5 g/dl (32.0-36.0); MEAN CELL VOLUME 79.9 fl (80-96); MEAN PLT VOLUME 8.4 fl (7.5-11.1); PLATELET COUNT 447 10^3/uL (134-434); RBC 4.22 M/mm3 (3.60-5.2); RDW 17.9 % (11.6-15.6); WHITE BLOOD COUNT 10.1 K/mm3 (4.0-10.0)
[2021-02-24 09:48] LABS: CALCIUM 8.9 mg/dL (8.5-10.1)
[2021-02-24 09:51] LABS: CREATININE 0.5 mg/dL (0.55-1.3)
[2021-02-24 09:53] LABS: BILIRUBIN,TOTAL 0.4 mg/dL (0.2-1)
[2021-02-24] MEDS ORDERED: CEFTRIAXONE 1 GM in DEXTROSE 5%-WATER - 50 ML IVPB SCH (10:00)
[2021-02-24] MEDS ORDERED: VANCOMYCIN 1 GM in D5W (PRE-DOCKED) 1,000 MG/250 ML IVPB SCH (10:00)
[2021-02-24] MEDS: ACETAMINOPHEN 1000 MG/100 ML VIAL (NON FORMULARY) IVPB PRN ×2 (10:17→23:58)
[2021-02-24] MEDS: BACLOFEN 10 MG TABLET (FP) PO SCH ×2 (10:24→21:29)
[2021-02-24] MEDS: DOCUSATE SODIUM 100 MG CAPSULE (FP) PO SCH (10:24)
[2021-02-24] MEDS: DULoxetine HCL 30 MG CAPSULE.DR PO SCH ×2 (10:25→21:29)
[2021-02-24] MEDS: ENOXAPARIN NA (PORCINE) 40 MG/0.4 ML DISP.SYRIN SQ SCH (10:30)
[2021-02-24] MEDS: PANTOPRAZOLE SODIUM 40 MG VIAL IVPUSH SCH (10:57)
[2021-02-24] MEDS ORDERED: INSULIN SLIDING SCALE (NOVOLOG) 1 VIAL SQ ONE (11:06)
[2021-02-24] MEDS: oxyCODONE HCL 5 MG TABLET PO PRN ×2 (13:06→21:28)
[2021-02-24] MEDS ORDERED: morphine SULFATE 4 MG/ML VIAL IVPUSH ONE (18:17)
[2021-02-24] MEDS ORDERED: PT OWN MED DRAWER 7, Y5N ONE (21:27)
[2021-02-24] MEDS: ARIPiprazole 10 MG TABLET PO SCH (21:29)
[2021-02-25] MEDS: ZOLPIDEM TARTRATE 5 MG TABLET PO PRN ×2 (00:05→21:35)
[2021-02-25] MEDS ORDERED: ceFAZolin SODIUM 1 GM VIAL ONE ×3 (01:05→18:05)
[2021-02-25] MEDS ORDERED: DEXTROSE 5%-WATER - 50 ML IVPB ONE ×3 (01:06→18:05)
[2021-02-25] MEDS: CEFAZOLIN 1 GM in DEXTROSE 5%-WATER - 1 GM/50 ML IVPB IVPB SCH ×3 (01:15→18:28)
[2021-02-25] MEDS: oxyCODONE HCL 5 MG TABLET PO PRN ×4 (04:22→20:00)
[2021-02-25] MEDS: INSULIN SLIDING SCALE (NOVOLOG) 1 VIAL SQ SCH ×4 (06:12→21:36)
[2021-02-25] MEDS: GABAPENTIN 300 MG CAPSULE PO SCH ×3 (06:28→21:35)
[2021-02-25] MEDS ORDERED: PATIENT'S OWN MEDICATION (NON-FORMULARY) (Valsartan/Hydrochlorothiazide [Valsartan-Hctz 80 PO SCH (10:00)
[2021-02-25 10:45] LABS: HEMOGLOBIN 10.9 GM/dL (10.7-15.3); MCH 26.2 pg (25.7-33.7); MCHC 33.1 g/dl (32.0-36.0); MEAN CELL VOLUME 79.2 fl (80-96); MEAN PLT VOLUME 8.5 fl (7.5-11.1); PLATELET COUNT 462 10^3/uL (134-434); RBC 4.16 M/mm3 (3.60-5.2); RDW 17.7 % (11.6-15.6); WHITE BLOOD COUNT 10.1 K/mm3 (4.0-10.0)
[2021-02-25] MEDS: amLODIPine BESYLATE 5 MG TABLET (FP) PO SCH (11:03)
[2021-02-25] MEDS: VALSARTAN 80 MG TABLET PO SCH (11:03)
[2021-02-25] MEDS: HYDROCHLOROTHIAZIDE 12.5 MG CAPSULE (FP) PO SCH (11:03)
[2021-02-25] MEDS: BACLOFEN 10 MG TABLET (FP) PO SCH ×2 (11:03→21:36)
[2021-02-25] MEDS: ENOXAPARIN NA (PORCINE) 40 MG/0.4 ML DISP.SYRIN SQ SCH (11:03)
[2021-02-25] MEDS ORDERED: PT OWN MED DRAWER 7, Y5N ONE (11:06)
[2021-02-25 11:07] LABS: ALBUMIN 3.2 g/dl (3.4-5.0); BLOOD UREA NITROGEN 9.5 mg/dL (7-18); CALCIUM 8.9 mg/dL (8.5-10.1)
[2021-02-25] MEDS: DULoxetine HCL 30 MG CAPSULE.DR PO SCH ×2 (11:07→21:36)
[2021-02-25] MEDS: PANTOPRAZOLE SODIUM 40 MG VIAL IVPUSH SCH (11:07)
[2021-02-25 11:12] LABS: CREATININE 0.7 mg/dL (0.55-1.3); PHOSPHOROUS 3.6 mg/dL (2.5-4.9)
[2021-02-25 11:13] LABS: BILIRUBIN,TOTAL 0.3 mg/dL (0.2-1); TOT PROT 6.9 g/dl (6.4-8.2)
[2021-02-25] MEDS ORDERED: LACTOBACILLUS ACIDOPHILUS 1 TABLET PO SCH (14:43)
[2021-02-25] MEDS: ARIPiprazole 10 MG TABLET PO SCH (21:36)
[2021-02-26] MEDS: oxyCODONE HCL 5 MG TABLET PO PRN ×5 (00:14→20:23)
[2021-02-26] MEDS ORDERED: ceFAZolin SODIUM 1 GM VIAL ONE ×3 (02:06→18:27)
[2021-02-26] MEDS ORDERED: DEXTROSE 5%-WATER - 50 ML IVPB ONE ×3 (02:06→18:27)
[2021-02-26] MEDS: CEFAZOLIN 1 GM in DEXTROSE 5%-WATER - 1 GM/50 ML IVPB IVPB SCH ×3 (02:27→18:31)
[2021-02-26] MEDS ORDERED: IBUPROFEN 200 MG TABLET PO ONE (05:17)
[2021-02-26] MEDS: GABAPENTIN 300 MG CAPSULE PO SCH ×3 (05:34→21:22)
[2021-02-26] MEDS: INSULIN SLIDING SCALE (NOVOLOG) 1 VIAL SQ SCH ×4 (06:05→21:25)
[2021-02-26] MEDS: amLODIPine BESYLATE 5 MG TABLET (FP) PO SCH (09:31)
[2021-02-26] MEDS: VALSARTAN 80 MG TABLET PO SCH (09:31)
[2021-02-26] MEDS: ENOXAPARIN NA (PORCINE) 40 MG/0.4 ML DISP.SYRIN SQ SCH (09:31)
[2021-02-26] MEDS: BACLOFEN 10 MG TABLET (FP) PO SCH ×2 (09:31→21:22)
[2021-02-26] MEDS: HYDROCHLOROTHIAZIDE 12.5 MG CAPSULE (FP) PO SCH (09:32)
[2021-02-26] MEDS: DULoxetine HCL 30 MG CAPSULE.DR PO SCH ×2 (09:32→21:23)
[2021-02-26 10:01] LABS: BASO % 0.5 % (0-2.0); EOS % 1.4 % (0-4.5); HEMATOCRIT 33.7 % (32.4-45.2); HEMOGLOBIN 11.2 GM/dL (10.7-15.3); LYMPH % 36.2 % (8-40); MCH 25.9 pg (25.7-33.7); MCHC 33.1 g/dl (32.0-36.0); MEAN CELL VOLUME 78.2 fl (80-96); MEAN PLT VOLUME 7.7 fl (7.5-11.1); MONO % 5.6 % (3.8-10.2); NEUT % 56.3 % (42.8-82.8); PLATELET COUNT 462 10^3/uL (134-434); RBC 4.32 M/mm3 (3.60-5.2); RDW 17.5 % (11.6-15.6); WHITE BLOOD COUNT 10.8 K/mm3 (4.0-10.0)
[2021-02-26 10:19] LABS: ALBUMIN 3.2 g/dl (3.4-5.0); BLOOD UREA NITROGEN 8.5 mg/dL (7-18); CALCIUM 9.3 mg/dL (8.5-10.1)
[2021-02-26 10:23] LABS: CREATININE 0.6 mg/dL (0.55-1.3)
[2021-02-26 10:25] LABS: BILIRUBIN,TOTAL 0.5 mg/dL (0.2-1); TOT PROT 7.4 g/dl (6.4-8.2)
[2021-02-26] MEDS: PANTOPRAZOLE SODIUM 40 MG VIAL IVPUSH SCH (12:04)
[2021-02-26] MEDS: PANTOPRAZOLE 40 MG TABLET PO SCH (13:09)
[2021-02-26] MEDS ORDERED: PT OWN MED DRAWER 7, Y5N ONE (20:51)
[2021-02-26] MEDS: ARIPiprazole 10 MG TABLET PO SCH (21:22)
[2021-02-26] MEDS: ZOLPIDEM TARTRATE 5 MG TABLET PO PRN (21:22)
[2021-02-27] MEDS ORDERED: DEXTROSE 5%-WATER - 50 ML IVPB ONE ×2 (02:14→10:13)
[2021-02-27] MEDS ORDERED: ceFAZolin SODIUM 1 GM VIAL ONE ×2 (02:14→10:13)
[2021-02-27] MEDS: oxyCODONE HCL 5 MG TABLET PO PRN ×4 (02:50→15:53)
[2021-02-27] MEDS: CEFAZOLIN 1 GM in DEXTROSE 5%-WATER - 1 GM/50 ML IVPB IVPB SCH ×2 (02:51→10:23)
[2021-02-27] MEDS: GABAPENTIN 300 MG CAPSULE PO SCH ×2 (06:51→13:38)
[2021-02-27] MEDS: INSULIN SLIDING SCALE (NOVOLOG) 1 VIAL SQ SCH ×2 (06:54→11:22)
[2021-02-27 09:30] LABS: HEMATOCRIT 35.2 % (32.4-45.2); HEMOGLOBIN 11.4 GM/dL (10.7-15.3); MCH 25.6 pg (25.7-33.7); MCHC 32.5 g/dl (32.0-36.0); MEAN PLT VOLUME 8.1 fl (7.5-11.1); PLATELET COUNT 465 10^3/uL (134-434); RBC 4.46 M/mm3 (3.60-5.2)
[2021-02-27] MEDS ORDERED: PT OWN MED DRAWER 7, Y5N ONE (10:12)
[2021-02-27 10:19] LABS: ALBUMIN 3.3 g/dl (3.4-5.0); BLOOD UREA NITROGEN 8.7 mg/dL (7-18)
[2021-02-27] MEDS: PANTOPRAZOLE 40 MG TABLET PO SCH (10:23)
[2021-02-27] MEDS: DULoxetine HCL 30 MG CAPSULE.DR PO SCH (10:24)
[2021-02-27] MEDS: VALSARTAN 80 MG TABLET PO SCH (10:25)
[2021-02-27] MEDS: amLODIPine BESYLATE 5 MG TABLET (FP) PO SCH (10:25)
[2021-02-27] MEDS: BACLOFEN 10 MG TABLET (FP) PO SCH (10:26)
[2021-02-27 10:28] LABS: BILIRUBIN,TOTAL 0.3 mg/dL (0.2-1); CREATININE 0.7 mg/dL (0.55-1.3); TOT PROT 7.5 g/dl (6.4-8.2)
[2021-02-27] MEDS: ENOXAPARIN NA (PORCINE) 40 MG/0.4 ML DISP.SYRIN SQ SCH (10:33)
[2021-02-27] MEDS: HYDROCHLOROTHIAZIDE 12.5 MG CAPSULE (FP) PO SCH (10:34)
[2021-02-27 11:38] VITALS: BP 127/77; PULSE 78; TEMP 97.7
[2021-02-27] MEDS ORDERED: LACTULOSE 20 GM/30 ML UDC (FOR ORAL USE ONLY) PO ONE (11:48)
[2021-02-27] MEDS ORDERED: POLYETHYLENE GLYCOL (HEALTHYLAX) 3350 17 GM PACKET PO SCH (12:00)
== END 2021-02-27 17:23 | disposition home or self-care (01) | DRG 603 ==
LOC: JER 02:55 → JERBED 06:20 → J5S 16:35
PROVIDERS: ADMIT Internal Medicine; ATTEND Internal Medicine
DX: L03.116 Cellulitis of left lower limb (principal); Z68.41 Body mass index [BMI] 40.0-44.9, adult; F31.81 Bipolar II disorder; M32.9 Systemic lupus erythematosus, unspecified; L03.115 Cellulitis of right lower limb; E66.01 Morbid (severe) obesity due to excess calories; M72.2 Plantar fascial fibromatosis; I10 Essential (primary) hypertension; M06.9 Rheumatoid arthritis, unspecified; M79.7 Fibromyalgia; R73.03 Prediabetes; M14.679 Charcot's joint, unspecified ankle and foot; Z79.01 Long term (current) use of anticoagulants; F41.9 Anxiety disorder, unspecified; G47.00 Insomnia, unspecified; M54.5 Low back pain; G40.909 Epilepsy, unspecified, not intractable, without status epilepticus; Z98.84 Bariatric surgery status
CPT/HCPCS: 36415; 73610-TC-LT-FY; 73630-TC-LT; 73718-TC-LT; 80053; 82962; 83036; 83605; 83735; 84100; 84703; 85025; 85027; 85651; 86140; 87040; 87070; 87205; 93005; 93010; 93971-TC; 97116-GP; 97161-GP; 99285-25; C9803; J0131; J0475; U0003; U0005

== ENCOUNTER 2021-04-14 04:48 | Day surgery (SDC) | payer OTHER ==
[2021-04-13 08:20] VITALS: BMI 39.5
[2021-04-14] MEDS ORDERED: PROPOFOL 20 ML ONE ×4 (07:24→10:46)
[2021-04-14] MEDS ORDERED: LIDOCAINE HCL/PF 1% SDV 5ML VIAL ONE ×3 (07:41→12:04)
[2021-04-14] MEDS ORDERED: MIDAZOLAM HCL 2 MG/2 ML SINGLE DOSE VIAL ONE (07:51)
[2021-04-14] MEDS ORDERED: KETAMINE HCL 200 MG/20 ML VIAL ONE (08:16)
[2021-04-14] MEDS ORDERED: ceFAZolin SODIUM 1 GM VIAL IVPB ONE (08:35)
[2021-04-14] MEDS ORDERED: LIDOCAINE HCL/PF 2% SDV 5ML VIAL SQ ONE ×2 (08:44)
[2021-04-14] MEDS ORDERED: LIDOCAINE HCL 1% PRESERVATIVE FREE - 30ML VIAL IJ ONE ×2 (08:44)
[2021-04-14] MEDS ORDERED: ACETAMINOPHEN 1000 MG/100 ML VIAL IVPB ONE ×2 (11:52→12:05)
[2021-04-14] MEDS ORDERED: ONDANSETRON 4 MG/2 ML VIAL IVPUSH PRN (11:52)
[2021-04-14] MEDS ORDERED: ACETAMINOPHEN INJECTION 100 ML IVPB ONE (11:59)
[2021-04-14] MEDS ORDERED: LACTATED RINGERS SOLUTION 1,000 ML IV SCH (12:00)
[2021-04-14] MEDS ORDERED: KETOROLAC TROMETHAMINE 30 MG/1 ML VIAL ONE (12:27)
[2021-04-14] MEDS ORDERED: KETOROLAC TROMETHAMINE 30 MG/1 ML VIAL IVPUSH ONE ×2 (12:30→12:36)
[2021-04-14 13:34] VITALS: TEMP 97.3
[2021-04-14 15:09] VITALS: BP 132/88; PULSE 72
== END 2021-04-14 16:45 | disposition home or self-care (01) ==
LOC: JASU-SURG 04:48
PROVIDERS: ATTEND Pain Medicine Pain Medicine
PROC: 00H Central Nervous System and Cranial Nerves, Insertion (ICD-10-PCS; 2021-04-14)
PROC: 00HU3MZ Insertion of Neurostimulator Lead into Spinal Canal, Percutaneous Approach (ICD-10-PCS; 2021-04-14)
PROC: 01HY3MZ Insertion of Neurostimulator Lead into Peripheral Nerve, Percutaneous Approach (ICD-10-PCS; principal; 2021-04-14 08:00)
DX: M96.1 Postlaminectomy syndrome, not elsewhere classified (principal); G56.40 Causalgia of unspecified upper limb
CPT/HCPCS: 63650; C1897; 76000-TC-FY; 81025; 94760; J0131

== ENCOUNTER 2021-08-16 23:08 | Emergency (ER) | payer OTHER ==
[2021-08-16 23:33] VITALS: BMI 43.2
[2021-08-17] MEDS ORDERED: morphine CARPU-JECT 4 MG/1 ML DISP.SYRIN IVPUSH ONE (00:25)
[2021-08-17] MEDS ORDERED: ONDANSETRON 4 MG/2 ML VIAL ONE (00:31)
[2021-08-17] MEDS ORDERED: morphine SULFATE 4 MG/ML VIAL ONE (00:31)
[2021-08-17 00:34] LABS: BASO % 0.4 % (0-2.0); EOS % 0.7 % (0-4.5); HEMATOCRIT 29.5 % (32.4-45.2); HEMOGLOBIN 9.3 GM/dL (10.7-15.3); LYMPH % 42.4 % (8-40); MCH 23.2 pg (25.7-33.7); MCHC 31.6 g/dl (32.0-36.0); MEAN CELL VOLUME 73.2 fl (80-96); NEUT % 50.5 % (42.8-82.8); PLATELET COUNT 520 10^3/uL (134-434); RBC 4.02 M/mm3 (3.60-5.2); RDW 17.5 % (11.6-15.6); WHITE BLOOD COUNT 12.2 K/mm3 (4.0-10.0)
[2021-08-17 00:44] LABS: CHLORIDE 107 mmol/L (98-107); SODIUM 140 mmol/L (136-145)
[2021-08-17 00:47] LABS: ALBUMIN 3.6 g/dl (3.4-5.0); ANION GAP 8 MMOL/L (8-16); BLOOD UREA NITROGEN 16.4 mg/dL (7-18); CALCIUM 9.2 mg/dL (8.5-10.1); CO2 25 mmol/L (21-32); GLUCOSE,RANDOM 95 mg/dL (74-106); LIPASE 73 U/L (73-393)
[2021-08-17 00:50] LABS: CREATININE 0.6 mg/dL (0.55-1.3); SGOT/AST 27 U/L (15-37); SGPT/ALT 46 U/L (13-61)
[2021-08-17 00:52] LABS: BILIRUBIN,TOTAL < 0.1 mg/dL (0.2-1); TOT PROT 7.6 g/dl (6.4-8.2)
[2021-08-17 00:53] LABS: ALK PHOS 112 U/L (45-117)
[2021-08-17] MEDS ORDERED: morphine CARPU-JECT 2 MG/1 ML DISP.SYRIN IVPUSH ONE (01:36)
[2021-08-17 04:08] VITALS: BP 104/65; PULSE 82; TEMP 97.1
[2021-08-17 04:32] LABS: URINE APPEARANCE CLEAR; URINE BILIRUBIN NEGATIVE (NEGATIVE); URINE COLOR YELLOW; URINE GLUCOSE (UA) NEGATIVE (NEGATIVE); URINE KETONE NEGATIVE (NEGATIVE); URINE LEUK ESTERASE NEGATIVE (NEGATIVE); URINE NITRITE NEGATIVE (NEGATIVE); URINE PROTEIN NEGATIVE (NEGATIVE); URINE UROBILINOGEN 0.2 mg/dL (0.2-1.0)
[2021-08-18 10:07] LABS: SARS-CoV-2 NAA Not Detected (Not Detected)
== END 2021-08-17 05:55 | disposition home or self-care (01) ==
LOC: JER 23:08
PROC: 3E033NZ Introduction of Analgesics, Hypnotics, Sedatives into Peripheral Vein, Percutaneous Approach (ICD-10-PCS; principal; 2021-08-16)
PROC: 3E033NZ Introduction of Analgesics, Hypnotics, Sedatives into Peripheral Vein, Percutaneous Approach (ICD-10-PCS; 2021-08-16)
PROC: 3E033GC Introduction of Other Therapeutic Substance into Peripheral Vein, Percutaneous Approach (ICD-10-PCS; 2021-08-16)
DX: R10.9 Unspecified abdominal pain (principal)
CPT/HCPCS: 36415; 74177-TC; 80053; 81003; 83605; 83690; 84703; 85025; 96374; 96375; 99285-25; C9803; Q9967; U0003; U0005

== ENCOUNTER 2021-08-20 11:57 | Emergency (ER) | payer OTHER ==
[2021-08-20 12:07] VITALS: TEMP 98.4; BMI 41.4
[2021-08-20] MEDS ORDERED: KETOROLAC TROMETHAMINE 30 MG/1 ML VIAL IM ONE (13:16)
[2021-08-20] MEDS ORDERED: KETOROLAC TROMETHAMINE 30 MG/1 ML VIAL ONE (13:19)
[2021-08-20] MEDS ORDERED: GABAPENTIN 300 MG CAPSULE PO ONE (13:42)
[2021-08-20] MEDS ORDERED: GABAPENTIN 100 MG CAPSULE ONE (14:02)
[2021-08-20 14:29] VITALS: BP 115/84; PULSE 88
== END 2021-08-20 14:29 | disposition home or self-care (01) ==
LOC: JERFT 11:57
PROC: 3E023GC Introduction of Other Therapeutic Substance into Muscle, Percutaneous Approach (ICD-10-PCS; principal; 2021-08-20)
DX: M54.42 Lumbago with sciatica, left side (principal)
CPT/HCPCS: 99284-25

== ENCOUNTER 2021-08-28 02:20 | Emergency (ER) | payer OTHER ==
[2021-08-28 02:32] VITALS: BP 120/67; PULSE 107; TEMP 98.9; BMI 41.4
[2021-08-28] MEDS ORDERED: ACETAMINOPHEN 500 MG TABLET (FP) PO ONE (02:41)
[2021-08-28] MEDS ORDERED: ACETAMINOPHEN 325 MG TABLET (FP) ONE (02:59)
== END 2021-08-28 04:46 | disposition home or self-care (01) ==
LOC: JER 02:20
DX: Z46.6 Encounter for fitting and adjustment of urinary device (principal)
CPT/HCPCS: 74019-TC-FY; 99284-25

== ENCOUNTER 2021-10-13 10:25 | Emergency (ER) | payer OTHER ==
[2021-10-13 10:52] VITALS: TEMP 97.9; BMI 43.4
[2021-10-13] MEDS ORDERED: KETOROLAC TROMETHAMINE 30 MG/1 ML VIAL IM ONE (12:33)
[2021-10-13] MEDS ORDERED: LIDOCAINE 5% TOPICAL PATCH TP ONE (12:34)
[2021-10-13] MEDS ORDERED: KETOROLAC TROMETHAMINE 30 MG/1 ML VIAL ONE (12:44)
[2021-10-13] MEDS ORDERED: LIDOCAINE 5% TOPICAL PATCH ONE (12:44)
[2021-10-13] MEDS ORDERED: METHOCARBAMOL 500 MG TABLET PO ONE (14:38)
[2021-10-13] MEDS ORDERED: METHOCARBAMOL 500 MG TABLET ONE (14:43)
[2021-10-13 16:04] VITALS: BP 124/75; PULSE 83
[2021-10-13] MEDS ORDERED: LIDOCAINE PATCH REMOVAL MC ONE (22:00)
== END 2021-10-13 17:22 | disposition home or self-care (01) ==
LOC: JER 10:25
PROC: 3E023GC Introduction of Other Therapeutic Substance into Muscle, Percutaneous Approach (ICD-10-PCS; principal; 2021-10-13)
DX: M54.50 Low back pain, unspecified (principal)
CPT/HCPCS: 72131-TC; 99284-25

== ENCOUNTER 2021-12-01 17:27 | Emergency (ER) | payer OTHER ==
[2021-12-01 18:04] VITALS: BP 134/80; PULSE 94; TEMP 98.6; BMI 35.2
[2021-12-01] MEDS ORDERED: diazePAM 5 MG TABLET PO ONE (19:37)
[2021-12-01] MEDS ORDERED: METHOCARBAMOL 500 MG TABLET PO ONE (19:37)
[2021-12-01] MEDS ORDERED: METHOCARBAMOL 500 MG TABLET ONE (19:49)
[2021-12-01] MEDS ORDERED: diazePAM 5 MG TABLET ONE (19:49)
== END 2021-12-02 00:24 | disposition home or self-care (01) ==
LOC: JER 17:27
DX: M62.838 Other muscle spasm (principal)
CPT/HCPCS: 70450-TC; 72125-TC; 99285-25

== ENCOUNTER 2022-12-12 14:10 | Emergency (ER) | payer OTHER ==
[2022-12-12 14:17] VITALS: BP 150/51; PULSE 68; RESP 18; TEMP 98; BMI 34.7
[2022-12-12] MEDS ORDERED: KETOROLAC TROMETHAMINE 60 MG/2 ML VIAL IM ONE (14:54)
[2022-12-12] MEDS ORDERED: KETOROLAC TROMETHAMINE 60 MG/2 ML VIAL ONE (15:06)
== END 2022-12-12 17:24 | disposition home or self-care (01) ==
LOC: JERFT 14:10 → JER 14:10 → JERFT 17:24
PROC: 3E0233Z Introduction of Anti-inflammatory into Muscle, Percutaneous Approach (ICD-10-PCS; principal; 2022-12-12)
DX: M54.50 Low back pain, unspecified (principal)
CPT/HCPCS: 72100-TC-FY; 96372; 99284-25

== ENCOUNTER 2023-02-12 12:50 | Emergency (ER) | payer OTHER ==
[2023-02-12 12:56] VITALS: BMI 36.3
[2023-02-12] MEDS ORDERED: KETOROLAC TROMETHAMINE 30 MG/1 ML VIAL IVPUSH ONE (13:11)
[2023-02-12] MEDS ORDERED: ACETAMINOPHEN 325 MG TABLET (FP) PO ONE (13:11)
[2023-02-12] MEDS ORDERED: ACETAMINOPHEN 500 MG TABLET (FP) ONE (13:22)
[2023-02-12] MEDS ORDERED: KETOROLAC TROMETHAMINE 15 MG/ML VIAL ONE (13:22)
[2023-02-12 13:40] LABS: HCG,QUALITATIVE URINE Negative
[2023-02-12 13:54] LABS: PH,URINE 5.5 (5.0-8.0); URINE APPEARANCE CLEAR; URINE BILIRUBIN NEGATIVE (NEGATIVE); URINE COLOR YELLOW; URINE GLUCOSE (UA) NEGATIVE (NEGATIVE); URINE KETONE TRACE (NEGATIVE); URINE LEUK ESTERASE NEGATIVE (NEGATIVE); URINE NITRITE NEGATIVE (NEGATIVE); URINE PROTEIN NEGATIVE (NEGATIVE)
[2023-02-12] MEDS ORDERED: ACETAMINOPHEN 325 MG TABLET (FP) ONE (14:00)
[2023-02-12 14:04] LABS: BASO % 0.6 % (0-2.0); LYMPH % 19.1 % (8-40); MCH 29.1 pg (25.7-33.7); MCHC 32.5 g/dl (32.0-36.0); MEAN CELL VOLUME 89.7 fl (80-96); MEAN PLT VOLUME 8.5 fl (7.5-11.1); MONO % 6.3 % (3.8-10.2); PLATELET COUNT 376 10^3/uL (134-434); RBC 4.12 M/mm3 (3.60-5.2); RDW 13.6 % (11.6-15.6); WHITE BLOOD COUNT 15.9 K/mm3 (4.0-10.0)
[2023-02-12 14:11] LABS: INR 1.04 (0.83-1.09); PROTHROMBIN TIME (PATIENT) 12.1 SEC (9.7-13.0)
[2023-02-12 14:13] LABS: ACTIVATED PTT 29.8 SECONDS (25.2-36.5)
[2023-02-12 14:24] LABS: POTASSIUM 4.7 mmol/L (3.5-5.1)
[2023-02-12 14:26] LABS: ALBUMIN 4.2 g/dl (3.4-5.0); BLOOD UREA NITROGEN 12.4 mg/dL (7-18); CALCIUM 9.5 mg/dL (8.5-10.1)
[2023-02-12 14:29] LABS: CREATININE 0.6 mg/dL (0.55-1.3)
[2023-02-12 14:31] LABS: BILIRUBIN,TOTAL 0.2 mg/dL (0.2-1); TOT PROT 8.4 g/dl (6.4-8.2)
[2023-02-12 17:02] VITALS: BP 133/78; PULSE 72; RESP 19; TEMP 97.9
== END 2023-02-12 17:02 | disposition home or self-care (01) ==
LOC: JER 12:50
PROC: 3E033NZ Introduction of Analgesics, Hypnotics, Sedatives into Peripheral Vein, Percutaneous Approach (ICD-10-PCS; principal; 2023-02-12)
DX: N93.9 Abnormal uterine and vaginal bleeding, unspecified (principal); R10.2 Pelvic and perineal pain
CPT/HCPCS: 36415; 74177-TC; 76830-TC; 80053; 81003; 84703; 85025; 85610; 85730; 86850; 86900; 86901; 96374; 99285-25; Q9967

== ENCOUNTER 2023-02-23 04:28 | Observation (INO) | payer OTHER ==
[2023-02-22 13:08] VITALS: BMI 36.3
[2023-02-23] MEDS ORDERED: ceFAZolin SODIUM 1 GM VIAL ONE (10:43)
[2023-02-23] MEDS ORDERED: CEFAZOLIN 2 GM in DEXTROSE 5%-WATER - 100 ML IVPB ONE (11:00)
[2023-02-23] MEDS ORDERED: ROCURONIUM BROMIDE 50 MG/5 ML SYRINGE ONE ×2 (12:14→12:15)
[2023-02-23] MEDS ORDERED: MIDAZOLAM HCL 2 MG/2 ML SINGLE DOSE VIAL ONE (12:15)
[2023-02-23] MEDS ORDERED: PROPOFOL 20 ML ONE (12:51)
[2023-02-23] MEDS ORDERED: ceFAZolin SODIUM 1 GM VIAL IVPB ONE (13:08)
[2023-02-23] MEDS ORDERED: BUPIVACAINE HCL/PF 0.25% (2.5MG/ML) 10 ML VIAL ONE (13:27)
[2023-02-23] MEDS ORDERED: BUPIVACAINE HCL/PF 0.25% (2.5MG/ML) 10 ML VIAL IJ ONE (13:53)
[2023-02-23] MEDS ORDERED: NEOSTIGMINE METHYLSULFATE 0.5 MG/1 ML - 10 ML MDV ONE (13:56)
[2023-02-23] MEDS ORDERED: LACTATED RINGERS SOLUTION 1,000 ML IV SCH (14:30)
[2023-02-23 16:15] LABS: BASO % 0.2 % (0-2.0); EOS % 0.4 % (0-4.5); HEMATOCRIT 39.3 % (32.4-45.2); HEMOGLOBIN 12.9 GM/dL (10.7-15.3); LYMPH % 35.3 % (8-40); MCH 29.1 pg (25.7-33.7); MCHC 32.8 g/dl (32.0-36.0); MEAN CELL VOLUME 88.7 fl (80-96); MEAN PLT VOLUME 8.3 fl (7.5-11.1); MONO % 4.1 % (3.8-10.2); PLATELET COUNT 340 10^3/uL (134-434); RBC 4.43 M/mm3 (3.60-5.2); WHITE BLOOD COUNT 12.7 K/mm3 (4.0-10.0)
[2023-02-23 16:24] LABS: INR 1.09 (0.83-1.09); PROTHROMBIN TIME (PATIENT) 12.6 SEC (9.7-13.0)
[2023-02-23] MEDS ORDERED: ACETAMINOPHEN 325 MG TABLET (FP) PO ONE ×2 (17:20→23:18)
[2023-02-23] MEDS: ASPIRIN COATED 81 MG TABLET.EC PO SCH (18:10)
[2023-02-23] MEDS: KETOROLAC TROMETHAMINE 15 MG/ML VIAL IVPUSH PRN (20:13)
[2023-02-24] MEDS: KETOROLAC TROMETHAMINE 15 MG/ML VIAL IVPUSH PRN ×2 (04:33→10:47)
[2023-02-24] MEDS: ASPIRIN COATED 81 MG TABLET.EC PO SCH (09:55)
[2023-02-24 10:04] VITALS: PULSE 79
[2023-02-24 12:39] VITALS: BP 118/75; RESP 16; TEMP 98.1
== END 2023-02-24 13:12 | disposition short-term general hospital (02) ==
LOC: SUATTDRO 04:28 → JASUSAT 04:28 → EDSTATUS 12:00 → J4W 17:01 → JASUSAT 17:02 → J4W 17:02
PROVIDERS: ADMIT Internal Medicine; ATTEND Internal Medicine
PROC: 0UT94ZZ Resection of Uterus, Percutaneous Endoscopic Approach (ICD-10-PCS; principal; 2023-02-23 12:00)
DX: Z53.09 Procedure and treatment not carried out because of other contraindication (principal); D50.0 Iron deficiency anemia secondary to blood loss (chronic); I10 Essential (primary) hypertension; E11.9 Type 2 diabetes mellitus without complications; F31.9 Bipolar disorder, unspecified; M06.9 Rheumatoid arthritis, unspecified; R56.9 Unspecified convulsions; G89.29 Other chronic pain; M54.9 Dorsalgia, unspecified; L93.2 Other local lupus erythematosus; Z96.89 Presence of other specified functional implants; R00.1 Bradycardia, unspecified; I46.9 Cardiac arrest, cause unspecified
CPT/HCPCS: 36415; 81025; 83735; 84443; 84484; 85025; 85027; 85610; 86850; 86900; 86901; 87635; 93005; 93010; 93306-TC; 94760; G0378